=== PATIENT | female | born 1985 | race Caucasian/White ===

== ENCOUNTER 2016-08-06 12:40 | Emergency (ER) | payer OTHER ==
[2016-08-06 12:48] VITALS: BP 79/40; PULSE 102; TEMP 98.7; BMI 23.6
--- NOTE | 2016-08-06 14:15 | PDOC ---
History of Present Illness - General History Source: Patient Exam Limitations: No Limitations - History of Present Illness Initial Comments: 08/06/16 14:47 The patient is a 30 year old female with significant past medical history of diabetes who presents to the emergency department with a wound for the last 3 days. The patient states that the wound is on the posterior aspect of the left knee. She states within the last month she has significantly increased her exercise regimen and started running. She states that she had a sudden onset of left knee pain and swelling that was followed by blisters that drained clear fluid. The patient states that the pain and swelling is worse with standing and ambulation and she has little pain at rest. The patient states that her blood sugar level has been running high then normal for the last few days. She denies any associated symptoms. She denies any trauma or injury to the left knee. The patient denies recent illness, fevers, or chills. <Radha Flynn - Last Filed: 08/06/16 14:47> <Papito Francis - Last Filed: 08/06/16 16:43> - General Chief Complaint: Wound Stated Complaint: LT KNEE PAIN, FLUIDS (DIABETIC) Time Seen by Provider: 08/06/16 14:14 Past History <Radha Flynn - Last Filed: 08/06/16 14:47> - Past Medical History Anemia: Yes Asthma: No Cancer: No Cardiac Disorders: No CVA: No COPD: No CHF: No Dementia: No Diabetes: Yes (IDDM) GI Disorders: No Disorders: No HTN: No Hypercholesterolemia: No Liver Disease: No Psychiatric Problems: Yes (anxiety) Seizures: No Thyroid Disease: Yes - Surgical History Abdominal Surgery: No Appendectomy: No Cardiac Surgery: No Cholecystectomy: No Lung Surgery: No Neurologic Surgery: No Orthopedic Surgery: No - Immunization History Immunization Up to Date: Yes - Psycho/Social/Smoking Cessation Hx Anxiety: Yes Suicidal Ideation: No Smoking Status: No Smoking History: Never smoked Have you smoked in the past 12 months: No Number of Cigarettes Smoked Daily: 0 Information on smoking cessation initiated: No Hx Alcohol Use: No Drug/Substance Use Hx: No Substance Use Type: None Hx Substance Use Treatment: No <Papito Francis - Last Filed: 08/06/16 16:43> - Past Medical History Allergies/Adverse Reactions: Allergies Allergy/AdvReac Type Severity Reaction Status Date / Time No Known Allergies Allergy Verified 08/06/16 12:41 Home Medications: Ambulatory Orders Sulfamethoxazole/Trimethoprim [Bactrim Ds -] 1 tab PO BID #28 tablet 08/06/16 Review of Systems - Review of Systems Able to Perform ROS?: Yes Comments:: 08/06/16 14:47 GENERAL/CONSTITUTIONAL: No fever or chills. No weakness. HEAD, EYES, EARS, NOSE AND THROAT: No change in vision. No ear pain or discharge. No sore throat. CARDIOVASCULAR: No chest pain or shortness of breath. RESPIRATORY: No cough, wheezing, or hemoptysis. GASTROINTESTINAL: No nausea, vomiting, diarrhea or constipation. GENITOURINARY: No dysuria, frequency, or change in urination. MUSCULOSKELETAL: +Left knee pain. No joint or muscle swelling or pain. No neck or back pain. SKIN: No rash NEUROLOGIC: No headache, vertigo, loss of consciousness, or change in strength/ sensation. ENDOCRINE: No increased thirst. No abnormal weight change. HEMATOLOGIC/LYMPHATIC: No anemia, easy bleeding, or history of blood clots. ALLERGIC/IMMUNOLOGIC: No hives or skin allergy. <Radha Flynn - Last Filed: 08/06/16 14:47> *Physical Exam - Vital Signs Last Vital Signs Temp Pulse Resp BP Pulse Ox 98.7 F 102 H 20 79/40 97 08/06/16 12:42 08/06/16 12:42 08/06/16 12:42 08/06/16 12:42 08/06/16 12:42 - Physical Exam Comments: 08/06/16 14:48 GENERAL: Awake, alert, and fully oriented, in no acute distress HEAD: No signs of trauma EYES: PERRLA, EOMI, sclera anicteric, conjunctiva clear ENT: Auricles normal inspection, hearing grossly normal, nares patent, oropharynx clear without exudates. Moist mucosa NECK: Normal ROM, supple, no lymphadenopathy, JVD, or masses LUNGS: Breath sounds equal, clear to auscultation bilaterally. No wheezes, and no crackles HEART: Regular rate and rhythm, normal S1 and S2, no murmurs, rubs or gallops ABDOMEN: Soft, nontender, normoactive bowel sounds. No guarding, no rebound. No masses EXTREMITIES: +LEFT knee without effusion. Normal ROM. Remainder of extremities has normal range of motion, no edema. No clubbing or cyanosis. No cords, erythema, or tenderness NEUROLOGICAL: Cranial nerves II through XII grossly intact. Normal speech, normal gait SKIN: +LEFT posterior knee with an area of necrotic tissue surrounded by a cellulitis base. The area is linear, about 6m wide and 14mm long. Skin is warm, dry, normal turgor, no rashes noted. <Radha Flynn - Last Filed: 08/06/16 14:47> - Vital Signs Last Vital Signs Temp Pulse Resp BP Pulse Ox 98.7 F 102 H 20 79/40 97 08/06/16 12:42 08/06/16 12:42 08/06/16 12:42 08/06/16 12:42 08/06/16 12:42 <Papito Francis - Last Filed: 08/06/16 16:43> ED Treatment Course - LABORATORY CBC & Chemistry Diagram: 08/06/16 14:30 08/06/16 14:30 <GeeRadha - Last Filed: 08/06/16 14:47> - LABORATORY CBC & Chemistry Diagram: 08/06/16 14:30 08/06/16 14:30 <Papito Francis - Last Filed: 08/06/16 16:43> *DC/Admit/Observation/Transfer - Attestations Scribe Attestion: 08/06/16 14:48 Documentation prepared by Radha Flynn, acting as medical laboratory technicians for Papito Francis DO. <GeeRadha - Last Filed: 08/06/16 14:47> - Attestations Physician Attestion: 08/06/16 14:14 I, Dr. Papito Francis, attest that this document has been prepared under my direction and personally reviewed by me in its entirety. I further attest, that it accurately reflects all work, treatment, procedures and medical decision -making performed by me. <Papito Francis - Last Filed: 08/06/16 16:43> Diagnosis at time of Disposition: Wound infection - Discharge Dispostion Disposition: HOME Condition at time of disposition: Good - Prescriptions Prescriptions: Sulfamethoxazole/Trimethoprim [Bactrim Ds -] 1 tab PO BID #28 tablet - Patient Instructions Printed Discharge Instructions: DI for Cellulitis -- Adult, DI for Methicillin- Resistant Staph Infection (MRSA) Additional Instructions: Aminata Escobedo that you are having this problem right now. It may be that this is MRSA. We did get a wound culture so we will know in about 48 hours. The Bactrim DS is twice a day. Return to us if any problems. Follow up with your doctors in a day or two. Shmuel- Dr. Papito Francis
[2016-08-06 14:45] LABS: BASOPHIL 1.4 % (0-2.0); MCH 28.9 pg (25.7-33.7); MCHC 32.8 g/dl (32.0-36.0); MEAN CELL VOLUME 88.2 fl (80-96); MEAN PLT VOLUME 8.5 fl (7.5-11.1); NEUTROPHILS 58.5 % (42.8-82.8); PLATELET COUNT 345 K/MM3 (134-434); WHITE BLOOD COUNT 6.9 K/mm3 (4.0-10.0)
[2016-08-06 15:05] LABS: ALBUMIN 3.3 g/dl (3.4-5.0); ANION GAP 7 (8-16); C-REACTIVE PROTEIN 2.2 MG/DL (0.00-0.3); CALCIUM 9.1 mg/dL (8.5-10.1); CO2 33 mmol/L (21-32); GLUCOSE,RANDOM 224 mg/dL (74-106); SGPT/ALT 27 U/L (12-78)
[2016-08-06 15:07] LABS: ALK PHOS 93 U/L (45-117); BILIRUBIN,TOTAL 0.4 mg/dL (0.2-1.0)
[2016-08-06 15:09] LABS: SGOT/AST 17 U/L (15-37)
[2016-08-06] MEDS ORDERED: SULFAMETHOXAZOLE/TRIMETHOPRIM 800MG/160MG D.S. TABLET PO ONE (16:38)
[2016-08-06 16:50] LABS: ERYTHROCYTE SEDIMENTATION RATE 77 mm/hr (0-20)
== END 2016-08-06 16:57 | disposition home or self-care (01) ==
LOC: JER 12:40
DX: L03.115 Cellulitis of right lower limb (principal); E10.9 Type 1 diabetes mellitus without complications; Z79.4 Long term (current) use of insulin
CPT/HCPCS: 36415; 73562-TC-LT; 80053; 85025; 85651; 86140; 87070; 87186; 87205; 99282-25

== ENCOUNTER 2016-08-10 14:03 | Inpatient (IN) | payer OTHER ==
[2016-08-10 14:18] VITALS: BMI 23.6
--- NOTE | 2016-08-10 15:13 | PDOC ---
History of Present Illness - General Chief Complaint: Wound Infection Stated Complaint: Wound Infection Time Seen by Provider: 08/10/16 14:51 History Source: Patient Exam Limitations: No Limitations - History of Present Illness Initial Comments: 08/10/16 16:38 HPI: This 30 year old female who was seen several days ago for a wound that is behind her left knee. she states she fell days ago on her knee and the next day she developed "water blisters" behind her knee approx 1/2 in by 5 " long. She was discharged as it did not appear to need ABT at this time. She then went to her PMD , Dr. Galeano, who wanted her to come to ER for further evaluation as she felt it was necessary for IV ABT and ID consult. Pt did not have fevers, drainage, bleeding, or red streaking. There is some knee swelling and scabbed to the area. It was cultured 4 days ago resulting in E coli and strep group A with sensitivites. Pt is a IDDM brittle diabetic and wound is a concern. Chief Compliant: wound PMH: IDDM, hypothyroid, anxiety, anemia FH: Pt has not recently traveled outside the country in the last 30 days. Pt has not been in contact with people who have traveled out of the country, in contact with people who have been ill with fever, n, v, d. SH: smoking use: NONE illicit drug use: NONE alcohol use: NONE employment/educational status: PSH: Home med use noted on AUG Allergies: nka Immunizations: PCP: Dr. Galeano Past History - Past Medical History Allergies/Adverse Reactions: Allergies Allergy/AdvReac Type Severity Reaction Status Date / Time No Known Allergies Allergy Verified 08/10/16 14:18 Home Medications: Ambulatory Orders Sulfamethoxazole/Trimethoprim [Bactrim Ds -] 1 tab PO BID #28 tablet 08/06/16 Fludrocortisone Acetate 0.1 mg PO DAILY 08/10/16 Insulin Pump/Infus. Set/Meter [Accu-Chek Combo System] 1 each MC ASDIR 08/10/16 Levothyroxine [Synthroid -] 50 mcg PO DAILY 08/10/16 Losartan Potassium 0 mg PO HS 08/10/16 Anemia: Yes Asthma: No Cancer: No Cardiac Disorders: No CVA: No COPD: No CHF: No Dementia: No Diabetes: Yes (IDDM) GI Disorders: No Disorders: No HTN: No (LOW BLOOD PRESSURE) Hypercholesterolemia: No Liver Disease: No Psychiatric Problems: Yes (anxiety) Seizures: No Thyroid Disease: Yes Other medical history: LEGALLY BLIND - Surgical History Abdominal Surgery: No Appendectomy: No Cardiac Surgery: No Cholecystectomy: No Lung Surgery: No Neurologic Surgery: No Orthopedic Surgery: No - Immunization History Immunization Up to Date: Yes - Psycho/Social/Smoking Cessation Hx Anxiety: Yes Suicidal Ideation: No Smoking Status: No Smoking History: Never smoked Have you smoked in the past 12 months: No Number of Cigarettes Smoked Daily: 0 Hx Alcohol Use: No Drug/Substance Use Hx: No Substance Use Type: None Hx Substance Use Treatment: No Review of Systems - Review of Systems Able to Perform ROS?: Yes Comments:: 08/10/16 16:56 General statement: "I have a wound" Hematology: neg history of bleeding/blood thinners Skin: Neg for lesions, rash, bruising, left knee wound behind the knee. HEENT: Neg symptoms Respiratory: Neg SOB or difficulty in breathing Cardiac: Neg chest pain GI: Neg pain, n/v : Neg problems on voiding MS: Neg for joint pain/stiffness, no edema Neuro: Neg for LOC, weakness, Endocrine: Neg for excess thirst/hunger, cold/heat intolerance, excess sweating Allergies: Neg for allergies *Physical Exam - Vital Signs Last Vital Signs Temp Pulse Resp BP Pulse Ox 98.6 F 101 H 16 89/60 95 08/10/16 14:14 08/10/16 14:14 08/10/16 14:14 08/10/16 14:14 08/10/16 14:14 - Physical Exam Comments: 08/10/16 16:58 General Appearance: This well appearing 30 year old female V/S: hemodynamically stable, afebrile Skin: WNL of pt's skin color, no signs of pallor, mottling, cyanosis, noted a left knee behind with wound that is now healing and slight redness surrounding it without any drainage or erythema. Head:symmetrical Eyes: EOM's intact, PERRLA Ears: denies pain Nose: patent Throat: lips, teeth, gums, tongue, buccal mucos pink and moist Lungs: Chest symmetry equal. Cap refill <3 seconds. Lung sounds clear Cardiac: PMI at R 4MCL space, pos S1 and S2, regular rate. Abdomen: Soft, round, nontender : Not observed Muscularskeletal: Gait steady, ambulated in to ER, no edema +PMS Neuro: AAOx3, cognitively intact, speech clear and appropriate. ED Treatment Course - LABORATORY CBC & Chemistry Diagram: 08/10/16 15:35 08/10/16 15:35 Medical Decision Making - Medical Decision Making 08/10/16 16:59 A/P 30 year old female with diabetic wound to the left knee. 1. labs 2. blood culture 3. ua/ 4. wound culture noted from 08/06 5. knee xray noted from 08/06 6. spoke with who would like Dr. Lee for consult 7. Spoke with Dr. Lee who suggests per the wound culture to treat with Ancef 2 gm Q8 and he will follow. 8. 08/10/16 17:23 Admitting physician today is Dr. Gan who I have spoken with for admission *DC/Admit/Observation/Transfer Diagnosis at time of Disposition: Wound infection - Discharge Dispostion Condition at time of disposition: Stable Admit: Yes
[2016-08-10] MEDS: SODIUM CHLORIDE 1,000 ML IV SCH (15:53)
[2016-08-10 16:15] LABS: BASOPHIL 1.3 % (0-2.0); EOSINOPHIL 1.6 % (0-4.5); MCH 28.7 pg (25.7-33.7); MCHC 32.9 g/dl (32.0-36.0); MEAN CELL VOLUME 87.3 fl (80-96); MEAN PLT VOLUME 8.4 fl (7.5-11.1); NEUTROPHILS 49.8 % (42.8-82.8); PLATELET COUNT 413 K/MM3 (134-434); RDW 13.9 % (11.6-15.6)
[2016-08-10 16:28] LABS: URINE APPEARANCE CLOUDY; URINE BILIRUBIN NEGATIVE (NEGATIVE); URINE BLOOD NEGATIVE (NEGATIVE); URINE COLOR YELLOW; URINE GLUCOSE (UA) 3+ (NEGATIVE); URINE KETONE NEGATIVE (NEGATIVE); URINE NITRITE POSITIVE (NEGATIVE); URINE PROTEIN NEGATIVE (NEGATIVE); URINE UROBILINOGEN NEGATIVE E.U./dl (0.2-1.0)
[2016-08-10 16:29] LABS: INR 0.94 (0.82-1.09); PROTHROMBIN TIME (PATIENT) 10.3 SEC (9.98-11.88)
[2016-08-10 16:31] LABS: URINE LEUK ESTERASE 3+ (NEGATIVE)
[2016-08-10 16:38] LABS: ALBUMIN 3.5 g/dl (3.4-5.0); ANION GAP 5 (8-16); CALCIUM 8.6 mg/dL (8.5-10.1); CO2 32 mmol/L (21-32); GLUCOSE,RANDOM 226 mg/dL (74-106); SGOT/AST 32 U/L (15-37); SGPT/ALT 34 U/L (12-78)
[2016-08-10 16:40] LABS: ALK PHOS 134 U/L (45-117); BILIRUBIN,TOTAL 0.1 mg/dL (0.2-1.0); TOT PROT 7.1 g/dl (6.4-8.2)
[2016-08-10 16:51] LABS: URINE BACTERIA RARE /hpf (NONE SEEN); URINE RBC 4 /hpf (0-3); URINE WBC 25 /hpf (3-5); YEAST FEW
[2016-08-10] MEDS ORDERED: CEFAZOLIN (PRE-DOCKED) 100 ML IVPB ONE (18:20)
[2016-08-10] MEDS: ceFAZolin 2 GRAM PREMIX BAG IVPB SCH (18:27)
--- NOTE | 2016-08-10 21:18 | HP ---
Admitting History and Physical - Primary Care Physician PCP: Praful Dumont - Admission History of Present Illness: This 30 year old female who was seen several days ago for a wound that is behind her left knee. she states she fell days ago on her knee and the next day she developed "water blisters" behind her knee approx 1/2 in by 5 " long. She was discharged as it did not appear to need ABT at this time. She then went to her PMD , Dr. Galeano, who wanted her to come to HOSP FOR IV ABX. Pt did not have fevers, drainage, bleeding, or red streaking. There is some knee swelling and scabbed to the area. It was cultured 4 days ago resulting in E coli and strep group A with sensitivites. Pt is a IDDM brittle diabetic and wound is a concern. - Past Medical History Endocrine: Yes: Diabetes Mellitus, Hypothyroidism - Smoking History Smoking history: Never smoked Have you smoked in the past 12 months: No Aproximately how many cigarettes per day: 0 - Alcohol/Substance Use Hx Alcohol Use: No Home Medications - Allergies Allergies/Adverse Reactions: Allergies Allergy/AdvReac Type Severity Reaction Status Date / Time No Known Allergies Allergy Verified 08/10/16 14:18 - Home Medications Home Medications: Ambulatory Orders Fludrocortisone Acetate 0.1 mg PO DAILY 08/10/16 Insulin Pump/Infus. Set/Meter [Accu-Chek Combo System] 1 each MC ASDIR 08/10/16 Levothyroxine [Synthroid -] 50 mcg PO DAILY 08/10/16 Losartan Potassium 0 mg PO HS 08/10/16 Physical Examination Vital Signs: Vital Signs Temperature 97.9 F 08/10/16 18:40 Pulse Rate 98 H 08/10/16 18:40 Respiratory Rate 18 08/10/16 18:40 Blood Pressure 119/82 08/10/16 18:40 O2 Sat by Pulse Oximetry (%) 98 08/10/16 18:40 Constitutional: Yes: No Distress HENT: Yes: Atraumatic Neck: Yes: Supple Cardiovascular: Yes: Regular Rate and Rhythm Respiratory: Yes: CTA Bilaterally Gastrointestinal: Yes: Normal Bowel Sounds Extremities: Yes: Other (BEHIND THE THE KNEE REDNESS OF SKIN) Neurological: Yes: Alert, Oriented Problem List - Problems (1) Wound infection Code(s): T14.8 - OTHER INJURY OF UNSPECIFIED BODY REGION L08.9 - LOCAL INFECTION OF THE SKIN AND SUBCUTANEOUS TISSUE, UNSP (2) Knee injury Code(s): S89.90XA - UNSPECIFIED INJURY OF UNSPECIFIED LOWER LEG, INIT ENCNTR Assessment/Plan Laboratory Tests 08/10/16 08/10/16 08/10/16 15:35 15:35 15:35 WBC 6.0 RBC 3.22 L Hgb 9.2 L Hct 28.1 L MCV 87.3 MCHC 32.9 RDW 13.9 Plt Count 413 MPV 8.4 Neutrophils % 49.8 Lymphocytes % 40.7 H D Monocytes % 6.6 Eosinophils % 1.6 Basophils % 1.3 INR 0.94 Sodium Potassium Chloride Carbon Dioxide Anion Gap BUN Creatinine Creat Clearance w eGFR Random Glucose Lactic Acid Calcium Total Bilirubin AST ALT Alkaline Phosphatase Total Protein Albumin Serum , Qual Negative Urine Color Yellow Urine Appearance Cloudy Urine pH 7.0 Ur Specific Stanford 1.018 Urine Protein Negative Urine Glucose (UA) 3+ H Urine Ketones Negative Urine Blood Negative Urine Nitrite Positive Urine Bilirubin Negative Urine Urobilinogen Negative Ur Leukocyte Esterase 3+ H Urine RBC 4 Urine WBC 25 Ur Epithelial Cells Moderate Urine Bacteria Rare Urine Yeast Few 08/10/16 08/10/16 15:35 15:35 WBC RBC Hgb Hct MCV MCHC RDW Plt Count MPV Neutrophils % Lymphocytes % Monocytes % Eosinophils % Basophils % INR Sodium 139 Potassium 4.8 Chloride 102 Carbon Dioxide 32 Anion Gap 5 L BUN 22 H Creatinine 1.0 Creat Clearance w eGFR > 60 Random Glucose 226 H Lactic Acid 1.111 Calcium 8.6 Total Bilirubin 0.1 L D AST 32 D ALT 34 D Alkaline Phosphatase 134 H D Total Protein 7.1 Albumin 3.5 Serum , Qual Urine Color Urine Appearance Urine pH Ur Specific Stanford Urine Protein Urine Glucose (UA) Urine Ketones Urine Blood Urine Nitrite Urine Bilirubin Urine Urobilinogen Ur Leukocyte Esterase Urine RBC Urine WBC Ur Epithelial Cells Urine Bacteria Urine Yeast Active Medications Generic Name Dose Route Start Last Admin Trade Name Freq PRN Reason Stop Dose Admin Acetaminophen 650 mg 08/10/16 21:20 Tylenol - PO Q6H PRN FEVER OR PAIN Cefazolin Sodium/Dextrose 2 gm 08/10/16 18:00 08/11/16 18:26 Ancef 2 Gm Premixed Ivpb - IVPB 2 gm Q8H-IV JULIO CESAR Administration Fludrocortisone Acetate 0.1 mg 08/11/16 10:00 08/11/16 10:43 Florinef - PO Not Given DAILY JULIO CESAR Heparin Sodium (Porcine) 5,000 unit 08/10/16 22:00 08/11/16 10:42 Heparin - SQ Not Given BID JULIO CESAR Sodium Chloride 1,000 mls @ 125 mls/hr 08/10/16 15:15 08/11/16 18:26 Normal Saline - IV Not Given ASDIR JULIO CESAR Levothyroxine Sodium 50 mcg 08/11/16 07:00 08/11/16 06:25 Synthroid - PO 50 mcg DAILY@0700 JULIO CESAR Administration A/P 1.CELLULITIS KNEE ADMIT IV ABX PRN PAIN MEDS 2.DM ON INSULIN BGMS 3.HYPOTHYROID ON MEDS
[2016-08-10] MEDS ORDERED: ACETAMINOPHEN 325 MG TABLET (FP) PO PRN (21:20)
[2016-08-10] MEDS ORDERED: PATIENT'S OWN MEDICATION (NON-FORMULARY) (Insulin Pump/Infus. Set/Meter [Accu-Chek Combo S MC SCH (21:30)
[2016-08-10] MEDS ORDERED: HEPARIN NA (PORCINE) 5,000 UNITS/ML 1ML VIAL ONE (22:02)
[2016-08-10] MEDS: HEPARIN NA (PORCINE) 5,000 UNITS/ML 1ML VIAL SQ SCH (22:05)
[2016-08-11] MEDS: ceFAZolin 2 GRAM PREMIX BAG IVPB SCH ×3 (02:41→18:26)
[2016-08-11] MEDS: LEVOTHYROXINE NA 50 MCG TABLET (FP) PO SCH (06:25)
[2016-08-11 08:23] LABS: BASOPHIL 1.5 % (0-2.0); EOSINOPHIL 2.4 % (0-4.5); MCH 28.5 pg (25.7-33.7); MCHC 32.3 g/dl (32.0-36.0); MEAN CELL VOLUME 88.1 fl (80-96); MEAN PLT VOLUME 8.4 fl (7.5-11.1); NEUTROPHILS 44.7 % (42.8-82.8); PLATELET COUNT 370 K/MM3 (134-434); RDW 14.2 % (11.6-15.6); WHITE BLOOD COUNT 4.9 K/mm3 (4.0-10.0)
[2016-08-11 09:01] LABS: ANION GAP 6 (8-16); CO2 30 mmol/L (21-32); SGOT/AST 27 U/L (15-37); SGPT/ALT 27 U/L (12-78)
[2016-08-11 09:02] LABS: ALK PHOS 103 U/L (45-117); BILIRUBIN,TOTAL 0.3 mg/dL (0.2-1.0); CALCIUM 8.7 mg/dL (8.5-10.1); CREATININE 0.8 mg/dL (0.55-1.02); TOT PROT 6.2 g/dl (6.4-8.2)
[2016-08-11 09:23] LABS: GLUCOSE,RANDOM 318 mg/dL (74-106)
[2016-08-11] MEDS: HEPARIN NA (PORCINE) 5,000 UNITS/ML 1ML VIAL SQ SCH ×2 (10:42→21:30)
[2016-08-11] MEDS: FLUDROCORTISONE ACETATE 0.1 MG TABLET (FP) PO SCH (10:43)
--- NOTE | 2016-08-11 12:12 | PN ---
Progress Note (short form) - Note Progress Note: ID consult dictated imp/reccd 30 yo female with IDDM (basline hgbaic 11.4!) has been running on the treadmill last week morgan pullng in her left knee and developed swelling of the leg and blisters behind the knee she notes erythema and swellng as well she was seen in the ED leg xrayed discharged home no fevers seen by Dr Galeano yesterday who sent her to ED started on iv ancef last pm with improvement in the leg swelling duplex with left popliteal cyst no DVT infected wound IDDM wound culture group b strep/ecoli still some erythema of the wound starting to dry would continue ancef today suspect she can go home in am on Keflex diabetes management per PMD Problem List - Problems (1) Wound infection Code(s): T14.8 - OTHER INJURY OF UNSPECIFIED BODY REGION L08.9 - LOCAL INFECTION OF THE SKIN AND SUBCUTANEOUS TISSUE, UNSP (2) Diabetes Code(s): E11.9 - TYPE 2 DIABETES MELLITUS WITHOUT COMPLICATIONS Qualifiers: Diabetes mellitus type: type 1
--- NOTE | 2016-08-11 14:12 | CONS ---
DATE OF CONSULTATION: DATE OF DICTATION: 08/11/2016 REQUESTED BY: Dimitri Dumont MD This is a 30-year-old woman with a history of insulin-dependent diabetes since age 14, history of hypothyroidism as well. She has been trying to exercise more than usual and has started running on a treadmill. She had a sudden onset of left knee pain and swelling. She felt like a sudden discomfort in her left knee last . She noted she developed blisters in the back of her leg. Then she came to the emergency room with left leg swelling and blisters. She was evaluated and discharged home. There were no fevers or chills. The swelling worsened. She noted some erythema behind her leg but she has limited vision. She saw her heliarc welder yesterday, who advised ER admission. Her past medical history is notable for anemia, insulin-dependent diabetes. She has hypothyroidism and anxiety. Past surgical history is notable for a tonsillectomy. She has been diabetic since age 14. Family history is notable for adult-onset diabetes, not in anybody as a child. She has no known drug allergies. Her medications as an outpatient include levothyroxine, losartan, fludrocortisone, insulin. Her hemoglobin A1c she says usually runs 11.4. She is also legally blind and has an ocular implant in her left eye. SOCIAL HISTORY: She lives at home. There are no pets. She is not working. REVIEW OF SYSTEMS: She denies any scratches or blisters. She has had no fevers. She has no sore throat, cough, nausea, vomiting, diarrhea, or dysuria. PHYSICAL EXAMINATION: General: She is awake and alert, in no acute distress. Vital Signs: Her temperature is 98. Pulse 92. Blood pressure 109/77. Respiratory rate is 18. She is saturating 99% on room air. HEENT: She is normocephalic. Her eyes are anicteric. Neck: Supple. Lungs: Clear to auscultation. Heart: Regular rate and rhythm. Abdomen: Soft, nontender. Extremities: Left knee is slightly swollen compared to her right, and behind the knee she has 2 wounds behind the knee that are starting to scab over, with some surrounding erythema. White count of 4.9, hemoglobin 8.9, platelets 370, INR is 0.94. BUN 17 and creatinine 0.8. Glucose of 318. LFTs are normal. Urinalysis has 3+ leukocytes with 25 white cells. Cultures are pending. Wound culture done when she was evaluated on the in the ER revealed a group B streptococcus and E coli. She had an x- ray of her leg done on the that is notable for now significant factor or joint effusion and she had a duplex of her leg done today that shows a left popliteal cyst. In summary, this is a 30-year-old insulin-dependent diabetic with some cellulitis and swelling of her left leg, probably secondary to some left knee trauma from exercising. The wound culture has group B streptococcus and Escherichia coli. I would continue Ancef today as there is still some erythema of the wound, which is starting to dry. I suspect she can go home in the morning on Keflex. Diabetes management per primary medical doctor. JASMINA HOUSTON M.D. [id number] MTDD
[2016-08-11] MEDS: SODIUM CHLORIDE 1,000 ML IV SCH (18:26)
--- NOTE | 2016-08-11 19:13 | PN ---
Progress Note, Physician - Current Medication List Current Medications: Active Medications Acetaminophen (Tylenol -) 650 mg PO Q6H PRN PRN Reason: FEVER OR PAIN Cefazolin Sodium/Dextrose (Ancef 2 Gm Premixed Ivpb -) 2 gm IVPB Q8H-IV [facility] Last Admin: 08/11/16 18:26 Dose: 2 gm Fludrocortisone Acetate (Florinef -) 0.1 mg PO DAILY [facility] Last Admin: 08/11/16 10:43 Dose: Not Given Heparin Sodium (Porcine) (Heparin -) 5,000 unit SQ BID [facility] Last Admin: 08/11/16 10:42 Dose: Not Given Sodium Chloride (Normal Saline -) 1,000 mls @ 125 mls/hr IV ASDIR [facility] Last Admin: 08/11/16 18:26 Dose: Not Given Levothyroxine Sodium (Synthroid -) 50 mcg PO DAILY@0700 [facility] Last Admin: 08/11/16 06:25 Dose: 50 mcg - Objective Vital Signs: Vital Signs Temperature 97.9 F 08/11/16 13:54 Pulse Rate 98 H 08/11/16 13:54 Respiratory Rate 18 08/11/16 13:54 Blood Pressure 109/77 08/11/16 09:00 O2 Sat by Pulse Oximetry (%) 99 08/11/16 09:00 Constitutional: Yes: No Distress HENT: Yes: Atraumatic Neck: Yes: Supple Cardiovascular: Yes: Regular Rate and Rhythm Respiratory: Yes: CTA Bilaterally Gastrointestinal: Yes: Normal Bowel Sounds Extremities: Yes: Other (CELLULITIS) Neurological: Yes: Alert, Oriented Labs: CBC, BMP 08/11/16 07:00 08/11/16 07:00 INR, PTT INR 0.94 (0.82-1.09) 08/10/16 15:35 Problem List - Problems (1) Wound infection Code(s): T14.8 - OTHER INJURY OF UNSPECIFIED BODY REGION L08.9 - LOCAL INFECTION OF THE SKIN AND SUBCUTANEOUS TISSUE, UNSP (2) Knee injury Code(s): S89.90XA - UNSPECIFIED INJURY OF UNSPECIFIED LOWER LEG, INIT ENCNTR Assessment/Plan A/P 1.CELLULITIS KNEE ADMIT IV ABX...need to know from id if we can switch to oral PRN PAIN MEDS 2.DM ON INSULIN BGMS 3.HYPOTHYROID ON MEDS
[2016-08-12] MEDS: ceFAZolin 2 GRAM PREMIX BAG IVPB SCH ×2 (02:09→12:04)
[2016-08-12] MEDS: LEVOTHYROXINE NA 50 MCG TABLET (FP) PO SCH (06:46)
[2016-08-12] MEDS: FLUDROCORTISONE ACETATE 0.1 MG TABLET (FP) PO SCH (09:39)
[2016-08-12] MEDS: HEPARIN NA (PORCINE) 5,000 UNITS/ML 1ML VIAL SQ SCH (09:40)
[2016-08-12] MEDS: SODIUM CHLORIDE 1,000 ML IV SCH (09:40)
[2016-08-12 10:29] LABS: MCH 28.9 pg (25.7-33.7); MCHC 32.8 g/dl (32.0-36.0); MEAN PLT VOLUME 8.1 fl (7.5-11.1); PLATELET COUNT 389 K/MM3 (134-434); RDW 14.4 % (11.6-15.6); WHITE BLOOD COUNT 5.9 K/mm3 (4.0-10.0)
[2016-08-12 10:35] VITALS: BP 114/80; PULSE 96
[2016-08-12 11:38] LABS: ALBUMIN 3.2 g/dl (3.4-5.0); ALK PHOS 101 U/L (45-117); ANION GAP 7 (8-16); BILIRUBIN,TOTAL 0.2 mg/dL (0.2-1.0); CALCIUM 8.5 mg/dL (8.5-10.1); CO2 28 mmol/L (21-32); CREATININE 0.9 mg/dL (0.55-1.02); SGOT/AST 39 U/L (15-37); SGPT/ALT 25 U/L (12-78); TOT PROT 6.7 g/dl (6.4-8.2)
[2016-08-12 11:52] LABS: GLUCOSE,RANDOM 322 mg/dL (74-106)
--- NOTE | 2016-08-12 14:08 | PN ---
Progress Note (short form) - Note Progress Note: feels better less kneww swelling ulcers have scabbed over CBC, BMP 08/12/16 10:10 08/12/16 10:10 Microbiology 08/10/16 15:15 Wound Gram Stain - Final 08/10/16 15:15 Wound Wound Culture - Preliminary Strep Agalactiae Group B 08/10/16 15:15 Blood - Peripheral Venous Blood Culture - Preliminary NO GROWTH OBTAINED AFTER 24 HOURS, INCUBATION TO CONTINUE FOR 4 DAYS. 08/10/16 15:35 Blood - Peripheral Venous Blood Culture - Preliminary NO GROWTH OBTAINED AFTER 24 HOURS, INCUBATION TO CONTINUE FOR 4 DAYS. a/p infected wound can switch to po keflex 500 tid for one week bacitracin to wound iddm please call back if needed Problem List - Problems (1) Wound infection Code(s): T14.8 - OTHER INJURY OF UNSPECIFIED BODY REGION L08.9 - LOCAL INFECTION OF THE SKIN AND SUBCUTANEOUS TISSUE, UNSP (2) Diabetes Code(s): E11.9 - TYPE 2 DIABETES MELLITUS WITHOUT COMPLICATIONS
[2016-08-12 14:24] VITALS: TEMP 97.9
--- NOTE | 2016-08-12 16:41 | DS ---
Physical Examination Vital Signs: Vital Signs Temperature 97.9 F 08/12/16 14:00 Pulse Rate 96 H 08/12/16 14:00 Respiratory Rate 20 08/12/16 14:00 Blood Pressure 114/80 08/12/16 10:29 O2 Sat by Pulse Oximetry (%) 99 08/12/16 09:00 Constitutional: Yes: No Distress HENT: Yes: Atraumatic Neck: Yes: Supple Cardiovascular: Yes: Regular Rate and Rhythm Respiratory: Yes: CTA Bilaterally Gastrointestinal: Yes: Normal Bowel Sounds Extremities: Yes: Other (cellulitis improving behind left knee blisters have scabbed swelling down) Neurological: Yes: Alert, Oriented Labs: CBC, BMP 08/12/16 10:10 08/12/16 10:10 Discharge Summary Reason For Visit: Wound Infection Current Active Problems Diabetes (Acute) Wound infection (Acute) Condition: Stable - Instructions Referrals: Toshia Galeano MD [Primary Care Provider] - Praful Dumont MD [Staff Physician] - - Home Medications Comprehensive Discharge Medication List: Ambulatory Orders Fludrocortisone Acetate 0.1 mg PO DAILY 08/10/16 Insulin Pump/Infus. Set/Meter [Accu-Chek Combo System] 1 each [facility] ASDIR 08/10/16 Levothyroxine [Synthroid -] 50 mcg PO DAILY 08/10/16 Losartan Potassium 0 mg PO HS 08/10/16 Cephalexin [Keflex] 500 mg PO TID #21 capsule 08/12/16
== END 2016-08-12 17:30 | disposition home or self-care (01) | DRG 603 ==
LOC: JER 14:03 → JERBED 17:24 → J6S 08-11 01:12
PROVIDERS: ADMIT Internal Medicine; ATTEND Internal Medicine
DX: L03.116 Cellulitis of left lower limb (principal); L08.9 Local infection of the skin and subcutaneous tissue, unspecified; B95.1 Streptococcus, group B, as the cause of diseases classified elsewhere; E11.9 Type 2 diabetes mellitus without complications; Z79.4 Long term (current) use of insulin; E03.9 Hypothyroidism, unspecified; D64.9 Anemia, unspecified; F41.9 Anxiety disorder, unspecified; H54.8 Legal blindness, as defined in USA
CPT/HCPCS: 36415; 80053; 81003; 81015; 83605; 84703; 85025; 85027; 85610; 87040; 87070; 87186; 87205; 93970-TC; 99284-25

== ENCOUNTER 2018-06-18 09:07 | Emergency (ER) | payer OTHER ==
[2018-06-18 09:12] VITALS: BP 113/78; PULSE 98; TEMP 97.5; BMI 22.3
[2018-06-18] MEDS ORDERED: IBUPROFEN 400 MG TABLET (FP) PO ONE ×2 (09:43→10:03)
--- NOTE | 2018-06-18 09:52 | PDOC ---
History of Present Illness - General Chief Complaint: Injury Stated Complaint: PAIN,SOB Time Seen by Provider: 06/18/18 09:39 History Source: Patient - History of Present Illness Occurred: reports: other Severity: reports: severe Pain Location: reports: chest Method of Injury: Yes: direct blow Associated Symptoms (Fall): chest pain Past History - Past Medical History Allergies/Adverse Reactions: Allergies Allergy/AdvReac Type Severity Reaction Status Date / Time No Known Allergies Allergy Verified 06/18/18 09:13 Home Medications: Ambulatory Orders Fludrocortisone Acetate 0.1 mg PO DAILY 08/10/16 Insulin Pump/Infus. Set/Meter [Accu-Chek Combo System] 1 each MC ASDIR 08/10/16 Levothyroxine [Synthroid -] 50 mcg PO DAILY 08/10/16 Losartan Potassium 0 mg PO HS 08/10/16 Cephalexin [Keflex] 500 mg PO TID #21 capsule 08/12/16 Anemia: Yes Asthma: No Cancer: No Cardiac Disorders: No CVA: No COPD: No CHF: No Dementia: No Diabetes: Yes (IDDM) GI Disorders: No Disorders: No HTN: No (LOW BLOOD PRESSURE) Hypercholesterolemia: No Liver Disease: No Psychiatric Problems: Yes (anxiety) Seizures: No Thyroid Disease: Yes - Surgical History Abdominal Surgery: No Appendectomy: No Cardiac Surgery: No Cholecystectomy: No Lung Surgery: No Neurologic Surgery: No Orthopedic Surgery: No - Immunization History Immunization Up to Date: Yes - Suicide/Smoking/Psychosocial Hx Smoking Status: No Smoking History: Never smoked Have you smoked in the past 12 months: No Number of Cigarettes Smoked Daily: 0 Hx Alcohol Use: No Drug/Substance Use Hx: No Substance Use Type: None Hx Substance Use Treatment: No Review of Systems - Review of Systems Respiratory: No: Shortness of Breath Cardiac (ROS): Yes: Chest Pain *Physical Exam - Vital Signs Last Vital Signs Temp Pulse Resp BP Pulse Ox 97.5 F L 98 H 18 113/78 100 06/18/18 09:09 06/18/18 09:09 06/18/18 09:09 06/18/18 09:09 06/18/18 09:09 - Physical Exam General Appearance: Yes: Appropriately Dressed. No: Apparent Distress HEENT: positive: Normal Voice Neck: positive: Supple Respiratory/Chest: positive: Chest Tender (to R upper chest in MCL w/ ? step off over R 3rd rib, no crepitus), Lungs Clear, Normal Breath Sounds. negative: Respiratory Distress Cardiovascular: positive: Regular Rate, S1, S2 Integumentary: positive: Dry, Warm Neurologic: positive: Fully Oriented, Alert, Normal Mood/Affect Moderate Sedation - Procedure Monitoring Vital Signs: Procedure Monitoring Vital Signs Temperature 97.5 F L 06/18/18 09:09 Pulse Rate 98 H 06/18/18 09:09 Respiratory Rate 18 06/18/18 09:09 Blood Pressure 113/78 06/18/18 09:09 O2 Sat by Pulse Oximetry (%) 100 06/18/18 09:09 ED Treatment Course - RADIOLOGY Radiology Studies Ordered: Category Date Time Status RIBS BILATERAL [RAD] Stat Radiology 06/18/18 09:43 Ordered Medical Decision Making - Medical Decision Making 06/18/18 09:52 32 yo F, no sig hx, here w/ pain to R upper chest s/p injury. Pt states several nights ago while walking her dog, she got caught between 2 cars trying to restrain dog who was attempting to break from leash. Pt states she accidentally banged R chest against one of the parked cars repeatedly. Continues o have pain , worse with deep inspiration/ Taking alleve w/ some relive See exam Chest contusion, r/p kailey fx given ? step off on exam -pain control -XR 06/18/18 11:14 Rib series s and chest x-ray read as negative. Will DC to take over-the- counter medication as needed until pain resolves *DC/Admit/Observation/Transfer Diagnosis at time of Disposition: Chest wall contusion Qualifiers: Encounter type: initial encounter Laterality: right Qualified Code(s): S20.211A - Contusion of right front wall of thorax, initial encounter - Discharge Dispostion Disposition: HOME Condition at time of disposition: Good - Referrals Referrals: Toshia Galeano MD [Primary Care Provider] - - Patient Instructions Printed Discharge Instructions: Contusion Additional Instructions: The rib series and chest x-ray were negative for fracture or any other concerning findings. You most likely suffered a chest wall contusion which will heal in time. You can take Motrin or Tylenol as needed until pain resolves - Post Discharge Activity
== END 2018-06-18 11:23 | disposition home or self-care (01) ==
LOC: JERFT 09:07
DX: S20.211A Contusion of right front wall of thorax, initial encounter (principal); W22.8XXA Striking against or struck by other objects, initial encounter; Y93.K1 Activity, walking an animal; Y92.480 Sidewalk as the place of occurrence of the external cause; Y99.8 Other external cause status; I10 Essential (primary) hypertension; Z79.4 Long term (current) use of insulin; I95.9 Hypotension, unspecified; E07.9 Disorder of thyroid, unspecified
CPT/HCPCS: 71046-TC-FY; 71111-TC-FY; 84703; 99281-25

== ENCOUNTER 2018-11-29 15:24 | Emergency (ER) | payer OTHER ==
[2018-11-29 15:30] VITALS: TEMP 97.7; BMI 22.4
[2018-11-29] MEDS ORDERED: SODIUM CHLORIDE 1,000 ML IV STA (15:30)
--- NOTE | 2018-11-29 15:30 | PDOC ---
Rapid Medical Evaluation Time Seen by Provider: 11/29/18 15:25 Medical Evaluation: Allergies Allergy/AdvReac Type Severity Reaction Status Date / Time No Known Allergies Allergy Verified 06/18/18 09:13 11/29/18 15:25 I have performed a brief in-person evaluation of this patient. The patient presents with a chief complaint of: diarrhea x9 days- GI [place] on vacation Pertinent physical exam findings: BP-92/63. AF. Abd SNTND. I have ordered the following: urine, labs, IVF, EKG The patient will proceed to the ED for further evaluation. 11/29/18 15:29 Discharge Disposition - Diagnosis Diarrhea - Referrals - Patient Instructions - Post Discharge Activity
--- NOTE | 2018-11-29 15:44 | PDOC ---
History of Present Illness - General Chief Complaint: Pain, Acute Stated Complaint: IBS/ STOMACH VIRUS Time Seen by Provider: 11/29/18 15:25 History Source: Patient - History of Present Illness Timing/Duration: reports: intermittent Quality: reports: moderate Past History - Past Medical History Allergies/Adverse Reactions: Allergies Allergy/AdvReac Type Severity Reaction Status Date / Time No Known Allergies Allergy Verified 06/18/18 09:13 Home Medications: Ambulatory Orders Fludrocortisone Acetate 0.1 mg PO DAILY 08/10/16 Insulin Pump/Infus. Set/Meter [Accu-Chek Combo System] 1 each MC ASDIR 08/10/16 Levothyroxine [Synthroid -] 50 mcg PO DAILY 08/10/16 Losartan Potassium 0 mg PO HS 08/10/16 Cephalexin [Keflex] 500 mg PO TID #21 capsule 08/12/16 Rifaximin [Xifaxan] 550 mg PO TID 11/29/18 Rifaximin [Xifaxan] 550 mg PO TID #41 tablet 11/29/18 Anemia: Yes Asthma: No Cancer: No Cardiac Disorders: No CVA: No COPD: No CHF: No Dementia: No Diabetes: Yes (IDDM) GI Disorders: No Disorders: No HTN: No (LOW BLOOD PRESSURE) Hypercholesterolemia: No Liver Disease: No Psychiatric Problems: Yes (anxiety) Seizures: No Thyroid Disease: Yes - Surgical History Abdominal Surgery: No Appendectomy: No Cardiac Surgery: No Cholecystectomy: No Lung Surgery: No Neurologic Surgery: No Orthopedic Surgery: No - Immunization History Immunization Up to Date: Yes - Suicide/Smoking/Psychosocial Hx Smoking Status: No Smoking History: Never smoked Have you smoked in the past 12 months: No Number of Cigarettes Smoked Daily: 0 Information on smoking cessation initiated: No Hx Alcohol Use: No Drug/Substance Use Hx: No Substance Use Type: None Hx Substance Use Treatment: No Review of Systems - Review of Systems Constitutional: No: Chills, Fever ABD/GI: Yes: Diarrhea. No: Blood Streaked Bowels, Nausea, Rectal Bleeding, Vomiting, Abdominal cramping, Tarry Stools *Physical Exam - Vital Signs Last Vital Signs Temp Pulse Resp BP Pulse Ox 97.7 F 97 H 18 92/63 100 11/29/18 15:27 11/29/18 15:27 11/29/18 15:27 11/29/18 15:27 11/29/18 15:27 - Physical Exam General Appearance: Yes: Appropriately Dressed. No: Apparent Distress HEENT: positive: Normal Voice Neck: positive: Supple Respiratory/Chest: negative: Respiratory Distress Gastrointestinal/Abdominal: positive: Normal Bowel Sounds, Soft. negative: Tender, Distended, Guarding, Rebound Integumentary: positive: Dry, Warm Neurologic: positive: Fully Oriented, Alert, Normal Mood/Affect ED Treatment Course - LABORATORY CBC & Chemistry Diagram: 11/29/18 15:38 11/29/18 15:38 Medical Decision Making - Medical Decision Making 11/29/18 15:39 33 yo F, h/o IDDM, hypotension (w/ intermittent dizziness upon exertion per pt- unclear cause), IBS c/w diarrhea/abd pain and bloating per pt, f/u with Dr Mai of GI w/ flares usually treated with 2 week course of Xifaxan vc cipro/ flagyl per patient, here with intermittent non-bloody watery stools 10 days. Only has abdominal pain with bloating after she eats. Denies any n/v, fever or chills. 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 Mai currently on vacation, so decided to come to the ED this time. Pt states she has h/o low BP that sometimes cause dizziness, otherwise no acute dizziness/weakness at this time See exam IBS flare vs VGE, less likely DKA Hypotensive here (endorses h/o low BP) -IVF -zofran -pain free at this time -labs -consider dc w/ xifaxin upon dc w/ f/u with GI 11/29/18 18:20 LFTs elevated today. 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 S/p liver bx earlier this year but not certain of results. Hep panel neg in 2010. Pt denies excessive tylenol use and denies ETOH use. BS in the 300s prior to IVF, no gap. Will rpt FS and vitals. Anticipate dc 11/29/18 18:39 BP improved on rpt vitals. FS 139 . Reports feeling a lot better at this time and feels well enough to be discharged. Prescription for Xifaxan sent to pharmacy. Patient to follow-up with Dr. Acevedo this week. Reasons to return to ER. Discussed with patient *DC/Admit/Observation/Transfer Diagnosis at time of Disposition: Transaminitis, Hyperglycemia Diarrhea Qualifiers: Diarrhea type: unspecified type Qualified Code(s): R19.7 - Diarrhea, unspecified - Discharge Dispostion Disposition: HOME Condition at time of disposition: Stable - Prescriptions Prescriptions: Rifaximin [Xifaxan] 550 mg PO TID #41 tablet - Referrals Referrals: Tl Walker MD [Primary Care Provider] - - Patient Instructions Additional Instructions: Your liver tests were elevated here. Please continue to up with your doctors for further evaluation Sugar here was in the 300s that improved to a little bit over 100 with IVF Please follow-up with your conveyor belt operator for better glucose control Take the rifaximin as prescribed for your IBS and follow up with Dr. Mai this week. Return to ER if symptoms worsen - Post Discharge Activity
[2018-11-29] MEDS ORDERED: RIFAXIMIN 550 MG TABLET (UD) PO ONE (15:46)
[2018-11-29] MEDS ORDERED: ONDANSETRON 4 MG TABLET PO ONE (15:46)
[2018-11-29] MEDS ORDERED: ONDANSETRON 4 MG/2 ML VIAL IVPUSH ONE (15:56)
[2018-11-29] MEDS ORDERED: ONDANSETRON 4 MG/2 ML VIAL ONE (15:57)
[2018-11-29 16:26] LABS: BASO % 1.3 % (0-2.0); EOS % 1.2 % (0-4.5); HEMATOCRIT 30.8 % (32.4-45.2); HEMOGLOBIN 10.1 GM/dL (10.7-15.3); LYMPH % 29.4 % (8-40); MCH 29.1 pg (25.7-33.7); MCHC 32.7 g/dl (32.0-36.0); MEAN CELL VOLUME 88.8 fl (80-96); MONO % 5.6 % (3.8-10.2); NEUT % 62.5 % (42.8-82.8); PLATELET COUNT 281 K/MM3 (134-434); RBC 3.47 M/mm3 (3.60-5.2); RDW 14.5 % (11.6-15.6); WHITE BLOOD COUNT 6.5 K/mm3 (4.0-10.0)
[2018-11-29 18:03] LABS: ALBUMIN 3.5 g/dl (3.4-5.0); ALK PHOS 209 U/L (45-117); ANION GAP 6 MMOL/L (8-16); BILIRUBIN,TOTAL 0.3 mg/dL (0.2-1); BLOOD UREA NITROGEN 27.2 mg/dL (7-18); CALCIUM 9.6 mg/dL (8.5-10.1); CHLORIDE 97 mmol/L (98-107); CO2 31 mmol/L (21-32); LIPASE 202 U/L (73-393); POTASSIUM 4.4 mmol/L (3.5-5.1); SGOT/AST 453 U/L (15-37); SGPT/ALT 353 U/L (13-61); SODIUM 133 mmol/L (136-145); TOT PROT 7.1 g/dl (6.4-8.2)
[2018-11-29 18:07] LABS: GLUCOSE,RANDOM 344 mg/dL (74-106)
[2018-11-29 18:16] LABS: PH,URINE 5.5 (5.0-8.0); URINE APPEARANCE CLEAR; URINE BILIRUBIN NEGATIVE (NEGATIVE); URINE COLOR DK YELLOW; URINE GLUCOSE (UA) 3+ (NEGATIVE); URINE KETONE NEGATIVE (NEGATIVE); URINE LEUK ESTERASE NEGATIVE (NEGATIVE); URINE NITRITE NEGATIVE (NEGATIVE); URINE PROTEIN TRACE (NEGATIVE); URINE UROBILINOGEN 0.2 mg/dL (0.2-1.0)
[2018-11-29 18:31] VITALS: BP 103/72; PULSE 91
== END 2018-11-29 18:48 | disposition home or self-care (01) ==
LOC: JER 15:24
PROC: 3E0337Z Introduction of Electrolytic and Water Balance Substance into Peripheral Vein, Percutaneous Approach (ICD-10-PCS; principal; 2018-11-29)
PROC: 3E033GC Introduction of Other Therapeutic Substance into Peripheral Vein, Percutaneous Approach (ICD-10-PCS; 2018-11-29)
DX: K58.0 Irritable bowel syndrome with diarrhea (principal); E10.65 Type 1 diabetes mellitus with hyperglycemia; Z79.4 Long term (current) use of insulin; R94.5 Abnormal results of liver function studies; R74.0 Nonspecific elevation of levels of transaminase and lactic acid dehydrogenase [LDH]
CPT/HCPCS: 36415; 80053; 81003; 82962; 83690; 84703; 85025; 86140; 87086; 87186; 96361; 96374; 99283-25; J7030

== ENCOUNTER 2018-12-11 22:18 | Inpatient (IN) | payer OTHER | END 2018-12-13 15:50 | disposition home or self-care (01) | LOC: JER 22:18 → JERBED 12-12 02:30 → J5S 12-12 05:52 ==

== ENCOUNTER 2019-01-21 17:24 | Inpatient (IN) | payer OTHER ==
--- NOTE | 2019-01-21 17:48 | PDOC ---
History of Present Illness - General Chief Complaint: Blood Sugar Problem Stated Complaint: BLOOD SUGAR PROBLEM History Source: Patient Exam Limitations: No Limitations - History of Present Illness Initial Comments: 01/21/19 17:59 33 yo F with a hx of DKA (1x in the past year), T1DM (since 15 years of age) and IBS presents to the emergency department with AMS and BGM >600. Per the patient, she believes her insulin pump is no longer functioning and has had this occur in the past before. Yesterday, she noticed her BGM >600. She gave herself 7.8 units of insulin 4 hours ago with a BGM >600. She states she became confused later today. Denies the following: fever, vomiting, chest pain, SOB, abdominal pain, hematuria, diarrhea, and hematochezia. Endorses nausea and polyuria. Endorses burning sensation in urine over the course of the week. AllergieS: NKDA Meds: insulin pump, fludrocortisone Social: Denies drug abuse, alcohol, and tobacco. Past History - Past Medical History Allergies/Adverse Reactions: Allergies Allergy/AdvReac Type Severity Reaction Status Date / Time No Known Allergies Allergy Verified 12/11/18 22:26 Home Medications: Ambulatory Orders Fludrocortisone Acetate 0.1 mg PO DAILY 08/10/16 Insulin Pump/Infus. Set/Meter [Accu-Chek Combo System] 1 each MC ASDIR 08/10/16 Anemia: Yes Asthma: No Cancer: No Cardiac Disorders: No CVA: No COPD: No CHF: No Dementia: No Diabetes: Yes (IDDM) GI Disorders: No Disorders: No HTN: No (LOW BLOOD PRESSURE) Hypercholesterolemia: No Liver Disease: No Psychiatric Problems: Yes (anxiety) Seizures: No Thyroid Disease: Yes - Surgical History Abdominal Surgery: No Appendectomy: No Cardiac Surgery: No Cholecystectomy: No Lung Surgery: No Neurologic Surgery: No Orthopedic Surgery: No - Immunization History Immunization Up to Date: Yes - Suicide/Smoking/Psychosocial Hx Smoking Status: No Smoking History: Unknown if ever smoked Have you smoked in the past 12 months: No Number of Cigarettes Smoked Daily: 0 Information on smoking cessation initiated: No Hx Alcohol Use: No Drug/Substance Use Hx: No Substance Use Type: None Hx Substance Use Treatment: No Review of Systems - Review of Systems Able to Perform ROS?: Yes Is the patient limited Syrian proficient: No Constitutional: Yes: Chills, Weakness. No: Diaphoresis, Fever HEENTM: Yes: Cataracts. No: Eye Pain, Ear Pain, Nose Pain, Throat Pain, Mouth Pain Respiratory: No: Cough, Shortness of Breath, SOB with Exertion, Hemoptysis Cardiac (ROS): No: Chest Pain, Lightheadedness, Palpitations, Syncope, Chest Tightness ABD/GI: Yes: Nausea. No: Constipated, Diarrhea, Poor Appetite, Poor Fluid Intake, Rectal Bleeding, Vomiting, Tarry Stools : Yes: Burning, Frequency. No: Dysuria, Incontinence, Pain Musculoskeletal: No: Back Pain, Joint Pain Integumentary: No: Bruising, Flushing, Lesions Neurological: No: Headache, Numbness, Tingling, Tremors Psychiatric: No: Stressors, Change in Appetite Endocrine: No: Unexplained Weight Loss Hematologic/Lymphatic: No: Anemia *Physical Exam - Vital Signs Last Vital Signs Temp Pulse Resp BP Pulse Ox 98.7 F 63 16 114/63 100 01/21/19 17:25 01/21/19 17:25 01/21/19 17:25 01/21/19 17:25 01/21/19 17:25 - Physical Exam General Appearance: Yes: Nourished, Appropriately Dressed. No: Apparent Distress, Alcohol on Breath, Obese HEENT: positive: EOMI, LORENA, Normal Voice, Pharynx Normal, Hearing Grossly Normal. negative: Pale Conjunctivae, Scleral Icterus (R), Scleral Icterus (L), Muffled/Hoarse voice, Pharyngeal Erythema, Tonsillar Exudate, Tonsillar Erythema , Nasal Congestion, Excessive drooling Neck: positive: Trachea midline, Supple. negative: Tender, Lymphadenopathy (R) , Lymphadenopathy (L), Tender lateral, Tender midline Respiratory/Chest: positive: Lungs Clear, Normal Breath Sounds. negative: Chest Tender, Respiratory Distress, Accessory Muscle Use, Crackles, Rales, Rhonchi, Stridor, Wheezing, Hyperresonant Cardiovascular: positive: Regular Rhythm, Regular Rate, S1, S2. negative: Systolic Murmur Gastrointestinal/Abdominal: positive: Normal Bowel Sounds, Flat, Soft. negative : Tender Musculoskeletal: positive: Normal Inspection Extremity: positive: Normal Range of Motion, Other (coolness to the extremities) . negative: Normal Capillary Refill (delayed), Normal Inspection (scars lesions bilaterally LE), Tender Integumentary: positive: Dry, Pale, Cold. negative: Normal Color Neurologic: positive: Depressed Affect. negative: Fully Oriented (oriented to self only), Normal Mood/Affect (confused), Facial Droop, Numbness Procedures - Central Line Central Line Lumen: triple Central Line Position: femoral (R) Anesthesia: 1% Lidocaine Amount of anesthesia (ccs): 1 Complications: none Post Central Line Insertion: sutured, good blood return ED Treatment Course - LABORATORY CBC & Chemistry Diagram: 01/23/19 05:40 01/23/19 05:40 - ADDITIONAL ORDERS Additional order review: Laboratory Results 01/21/19 17:28 POC Glucometer > 600 01/21/19 17:28 POC Glucometer > 600 Medical Decision Making - Medical Decision Making 01/21/19 18:31 33 yo F with a hx of DKA (1x in the past year), T1DM (since 15 years of age) and IBS presents to the emergency department with AMS and BGM >600. Initial vitals: Initial Vital Signs Temp Pulse Resp BP Pulse Ox 98.7 F 63 16 114/63 100 01/21/19 17:25 01/21/19 17:25 01/21/19 17:25 01/21/19 17:25 01/21/19 17:25 Work up: ddx: patient presents to the emergency department with profound hypotension ( MAP in the 40s-50s initially) with known history of T1DM that states her insulin broke. Given her tachypnea and EMS reports of field BGM >600, suspect DKA in setting of AMS. Differential will remain broad as I suspect there is a concurrent disturbance in addition to the suspected DKA. Will order blood cultures (given hypothermia), cbc, cmp, trops, ekg, cxr, ua, urine culture, urine, tsh, free T4, magnesium, alcohol, vbg, salicylate, and acetaminophen. Interventions: 2x 20 gauge IVs (unable to get 18s in), 2 liters of NS initially. EKG: st depression noted in V4-V6. QT prolongation. Sinus rhythm. Laboratory Tests 01/21/19 01/21/19 01/21/19 17:28 17:34 17:50 WBC RBC Hgb Hct MCV MCH MCHC RDW Plt Count MPV Absolute Neuts (auto) Total Counted Neutrophils % Neutrophils % (Manual) Band Neutrophils % Lymphocytes % Lymphocytes % (Manual) Monocytes % (Manual) Basophils % (Manual) Myelocytes % (Man) Nucleated RBC % Differential Comment Hypochromia Platelet Estimate Platelet Comment Polychromasia Macrocytosis PT with INR INR VBG pH POC VBG pCO2 POC VBG pO2 VBG HCO3 VBG O2 Sat (Billie) VBG Base Excess Sodium Potassium Chloride Carbon Dioxide Anion Gap BUN Creatinine Est GFR (CKD-EPI)AfAm Est GFR (CKD-EPI)NonAf POC Glucometer > 600 Random Glucose Lactic Acid Calcium Magnesium Total Bilirubin AST ALT Alkaline Phosphatase Creatine Kinase Troponin I Total Protein Albumin TSH Free T4 Serum , Qual Negative Urine Color Urine Appearance Urine pH Ur Specific Fl[place] Urine Protein Urine Glucose (UA) Urine Ketones Urine Blood Urine Nitrite Urine Bilirubin Urine Urobilinogen Ur Leukocyte Esterase Urine WBC (Auto) Urine RBC (Auto) Urine Casts (Auto) U Epithel Cells (Auto) Urine Bacteria (Auto) Salicylates Opiates Screen Methadone Screen Acetaminophen Barbiturate Screen Phencyclidine Screen Ur Amphetamines Screen MDMA (Ecstasy) Screen Benzodiazepines Screen Cocaine Screen U Marijuana (THC) Screen Alcohol, Quantitative < 3.0 Acetone, Qual 01/21/19 01/21/19 01/21/19 18:00 18:00 18:00 WBC 10.6 H RBC 2.56 L Hgb 7.6 L Hct 27.1 L MCV 106.1 H D MCH 29.9 MCHC 28.2 L RDW 14.6 Plt Count 249 MPV 10.4 D Absolute Neuts (auto) 8.5 H Total Counted 100 Neutrophils % No Result Required. Neutrophils % (Manual) 71.0 Band Neutrophils % 5.0 Lymphocytes % No Result Required. Lymphocytes % (Manual) 17.0 Monocytes % (Manual) 5 Basophils % (Manual) 1.0 Myelocytes % (Man) 1 Nucleated RBC % 0 Differential Comment Man diff performed Hypochromia 1+ Platelet Estimate Adequate Platelet Comment Polychromasia 1+ Macrocytosis 2+ PT with INR INR VBG pH POC VBG pCO2 POC VBG pO2 VBG HCO3 VBG O2 Sat (Billie) VBG Base Excess Sodium 116 L* Potassium 7.1 H* Chloride 83 L Carbon Dioxide 6 L Anion Gap 27 H BUN 65.6 H Creatinine 2.6 H Est GFR (CKD-EPI)AfAm 27.00 Est GFR (CKD-EPI)NonAf 23.30 POC Glucometer Random Glucose 1380 H* Lactic Acid 3.1 H* Calcium 7.5 L Magnesium 2.5 H Total Bilirubin 1.0 AST 86 H ALT 60 Alkaline Phosphatase 176 H Creatine Kinase 120 Troponin I 0.18 H Total Protein 5.2 L Albumin 2.7 L TSH 4.94 H Free T4 0.79 Serum , Qual Urine Color Urine Appearance Urine pH Ur Specific Fl[place] Urine Protein Urine Glucose (UA) Urine Ketones Urine Blood Urine Nitrite Urine Bilirubin Urine Urobilinogen Ur Leukocyte Esterase Urine WBC (Auto) Urine RBC (Auto) Urine Casts (Auto) U Epithel Cells (Auto) Urine Bacteria (Auto) Salicylates 5.1 Opiates Screen Methadone Screen Acetaminophen 14.6 Barbiturate Screen Phencyclidine Screen Ur Amphetamines Screen MDMA (Ecstasy) Screen Benzodiazepines Screen Cocaine Screen U Marijuana (THC) Screen Alcohol, Quantitative Acetone, Qual Positive large 3+ H 01/21/19 01/21/19 01/21/19 18:00 18:20 19:00 WBC RBC Hgb Hct MCV MCH MCHC RDW Plt Count MPV Absolute Neuts (auto) Total Counted Neutrophils % Neutrophils % (Manual) Band Neutrophils % Lymphocytes % Lymphocytes % (Manual) Monocytes % (Manual) Basophils % (Manual) Myelocytes % (Man) Nucleated RBC % Differential Comment Hypochromia Platelet Estimate Platelet Comment Polychromasia Macrocytosis PT with INR 10.40 INR 0.88 VBG pH 6.93 L* POC VBG pCO2 18.7 L POC VBG pO2 87.4 H VBG HCO3 3.7 L VBG O2 Sat (Billie) 90.7 H VBG Base Excess -26.7 L Sodium Potassium Chloride Carbon Dioxide Anion Gap BUN Creatinine Est GFR (CKD-EPI)AfAm Est GFR (CKD-EPI)NonAf POC Glucometer Random Glucose Lactic Acid Calcium Magnesium Total Bilirubin AST ALT Alkaline Phosphatase Creatine Kinase Troponin I Total Protein Albumin TSH Free T4 Serum , Qual Urine Color Urine Appearance Urine pH Ur Specific [place] Urine Protein Urine Glucose (UA) Urine Ketones Urine Blood Urine Nitrite Urine Bilirubin Urine Urobilinogen Ur Leukocyte Esterase Urine WBC (Auto) Urine RBC (Auto) Urine Casts (Auto) U Epithel Cells (Auto) Urine Bacteria (Auto) Salicylates Opiates Screen Negative Methadone Screen Negative Acetaminophen Barbiturate Screen Negative Phencyclidine Screen Negative Ur Amphetamines Screen Negative MDMA (Ecstasy) Screen Negative Benzodiazepines Screen Negative Cocaine Screen Negative U Marijuana (THC) Screen Negative Alcohol, Quantitative Acetone, Qual 01/21/19 19:00 WBC RBC Hgb Hct MCV MCH MCHC RDW Plt Count MPV Absolute Neuts (auto) Total Counted Neutrophils % Neutrophils % (Manual) Band Neutrophils % Lymphocytes % Lymphocytes % (Manual) Monocytes % (Manual) Basophils % (Manual) Myelocytes % (Man) Nucleated RBC % Differential Comment Hypochromia Platelet Estimate Platelet Comment Polychromasia Macrocytosis PT with INR INR VBG pH POC VBG pCO2 POC VBG pO2 VBG HCO3 VBG O2 Sat (Billie) VBG Base Excess Sodium Potassium Chloride Carbon Dioxide Anion Gap BUN Creatinine Est GFR (CKD-EPI)AfAm Est GFR (CKD-EPI)NonAf POC Glucometer Random Glucose Lactic Acid Calcium Magnesium Total Bilirubin AST ALT Alkaline Phosphatase Creatine Kinase Troponin I Total Protein Albumin TSH Free T4 Serum , Qual Urine Color Yellow Urine Appearance Cloudy Urine pH 5.0 Ur Specific [place] 1.023 Urine Protein Negative Urine Glucose (UA) 3+ H Urine Ketones Trace H Urine Blood Trace Urine Nitrite Negative Urine Bilirubin Negative Urine Urobilinogen 0.2 Ur Leukocyte Esterase Negative Urine WBC (Auto) 7.6 Urine RBC (Auto) 0.9 Urine Casts (Auto) 6.38 U Epithel Cells (Auto) 1.9 Urine Bacteria (Auto) 1.2 Salicylates Opiates Screen Methadone Screen Acetaminophen Barbiturate Screen Phencyclidine Screen Ur Amphetamines Screen MDMA (Ecstasy) Screen Benzodiazepines Screen Cocaine Screen U Marijuana (THC) Screen Alcohol, Quantitative Acetone, Qual VBG shows pH of 6.93 with low bicarb. In addition, patient remained hypotensive s/p 2 Liters of NS. Ordered 3x 1 L NS bags to maintain blood pressure. In addition, patient continues to be alert and oriented x1, but maintaining adequate airway protection at the time being. Potassium resulted at 7.1. Will begin insulin at 0.2 units/kg/hr. At this time, the patient is s/p 5 liters of NS and remains hypotensive with MAPs in the 30s- 40s. Verbal consent was obtained from family member to place a central line. Given patient's AMS, inability to follow commands, and speed of central access needed to start vasopressors, a femoral line was placed (refer to procedure note ). Glucose in the 1400s with elevated anion gap; likely DKA. Patients thyroid studies show elevated TSH, but normal t4. Troponin elevated, likely secondary to demand ischemia. Upon secondary evaluation of the patient, she states she takes fludrocortisone for low blood pressure of unknown causes. Patient was given home dose of 0.1 mg. Patient was endorses to ICU and accepted for admission. Dispo: Admit to ICU *DC/Admit/Observation/Transfer Diagnosis at time of Disposition: LESTER (acute kidney injury), DKA (diabetic ketoacidoses), Demand ischemia Hypotension Qualifiers: Hypotension type: orthostatic hypotension Qualified Code(s): I95.1 - Orthostatic hypotension - Referrals - Patient Instructions - Post Discharge Activity
[2019-01-21] MEDS ORDERED: SODIUM CHLORIDE 1,000 ML IV STA ×5 (17:49→19:39)
[2019-01-21 18:08] LABS: VENOUS PC02 18.7 mmHg (41-51); VENOUS PO2 87.4 mmHg (30-40)
[2019-01-21 18:10] LABS: VENOUS PH 6.93 (7.31-7.41)
[2019-01-21] MEDS ORDERED: PIPERACILLIN/TAZOB 3.375 GM 3.375 GM in DEXTROSE 5%-WATER - 50 ML IVPB ONE (18:37)
[2019-01-21] MEDS ORDERED: PIPERACILLIN/TAZOB 3.375 GM 3.375 GM/50 ML BAG IVPB ONE (18:44)
--- NOTE | 2019-01-21 18:55 | CONSULT ---
Consultation: REQUESTING PROVIDER: Dr. Pabon CONSULT REQUEST: We have been asked to medically evaluate this patient for diabetic ketoacidosis HISTORY OF PRESENT ILLNESS: 33 year old female with a history of type I diabetes that was diagnosed at age 15, hypothyroidism, diabetic retinopathy, presented to the ED for altered mental status. Per mother at bedside, she believes that the daughter's insulin pump had not been working today. She had her glucose measured at home yesterday and it was >600 on her monitor, after which she gave herself a dose of insulin through her pump. Similarly, this morning she had another BGM of >600 and also used insulin. Despite using her insulin the mother reported that she still did not feel like herself in the day. She notes nausea without vomiting. Denies chest pain, shortness of breath, nausea, vomiting, diarrhea, fevers, chills. Reports frequent urination and dysuria. Also states that she takes synthroid at home for hypothyroidism. The only medications she takes at home are an insulin pump and fludrocortisone for her blood pressure - and states that she may have been told she has adrenal insufficiency, but that she was not officially diagnosed. Denied alcohol, drug or tobacco use. Family History: patient's mother 3 years ago from end stage renal disease from rheumatoid arthritis REVIEW OF SYSTEMS: CONSTITUTIONAL: Absent: fever, chills, diaphoresis, generalized weakness, malaise, loss of appetite, weight change HEENT: Absent: rhinorrhea, nasal congestion, throat pain, throat swelling, difficulty swallowing, mouth swelling, ear pain, eye pain, visual changes CARDIOVASCULAR: Absent: chest pain, syncope, palpitations, irregular heart rate, lightheadedness , peripheral edema RESPIRATORY: Absent: cough, shortness of breath, dyspnea with exertion, orthopnea, wheezing, stridor, hemoptysis GASTROINTESTINAL: nausea Absent: abdominal pain, abdominal distension, vomiting, diarrhea, constipation, melena, hematochezia GENITOURINARY: Absent: dysuria, frequency, urgency, hesitancy, hematuria, flank pain, genital pain MUSCULOSKELETAL: Absent: myalgia, arthralgia, joint swelling, back pain, neck pain SKIN: Absent: rash, itching, pallor HEMATOLOGIC/IMMUNOLOGIC: Absent: easy bleeding, easy bruising, lymphadenopathy, frequent infections ENDOCRINE: Absent: unexplained weight gain, unexplained weight loss, heat intolerance, cold intolerance NEUROLOGIC: mental status changes Absent: headache, focal weakness or paresthesias, dizziness, unsteady gait, seizure, bladder or bowel incontinence PSYCHIATRIC: Absent: anxiety, depression, suicidal or homicidal ideation, hallucinations. PHYSICAL EXAMINATION Vital Signs - 24 hr 01/21/19 01/21/19 01/21/19 17:25 17:32 18:00 Temperature 98.7 F 92.8 F L Pulse Rate 63 Pulse Rate [ 67 65 Apical] Respiratory 16 17 16 Rate Blood Pressure 114/63 Blood Pressure 114/76 58/40 L [Left Arm] O2 Sat by Pulse 100 100 93 L Oximetry (%) 01/21/19 18:02 Temperature Pulse Rate Pulse Rate [ Apical] Respiratory Rate Blood Pressure Blood Pressure [Left Arm] O2 Sat by Pulse 98 Oximetry (%) GENERAL: A&Ox2, moderate distress EYES: cataracts noted in b/l eyes, patient is blind and is only able to see colors and motion ENT: Dry mucus membranes, acetone breath smelled NECK: No JVD, mild goiter noted on exam, nontender LUNGS: CTA, no wheezes, kussmaul respirations noted HEART: RRR, no murmurs ABDOMEN: Soft, nontender, BS present MUSCULOSKELETAL: No CVA Tenderness EXTREMITIES: 2+ pulses, no edema. NEUROLOGICAL: Difficult to assess neurologic status based on mental status, but patient is able to move all four extremities Laboratory Last Values WBC 10.6 K/mm3 (4.0-10.0) H 01/21/19 18:00 RBC 2.56 M/mm3 (3.60-5.2) L 01/21/19 18:00 Hgb 7.6 GM/dL (10.7-15.3) L 01/21/19 18:00 Hct 27.1 % (32.4-45.2) L 01/21/19 18:00 MCV 106.1 fl (80-96) H D 01/21/19 18:00 MCH 29.9 pg (25.7-33.7) 01/21/19 18:00 MCHC 28.2 g/dl (32.0-36.0) L 01/21/19 18:00 RDW 14.6 % (11.6-15.6) 01/21/19 18:00 Plt Count 249 K/MM3 (134-434) 01/21/19 18:00 MPV 10.4 fl (7.5-11.1) D 01/21/19 18:00 Absolute Neuts (auto) 8.5 K/mm3 (1.5-8.0) H 01/21/19 18:00 Neutrophils % No Result Required. 01/21/19 18:00 Lymphocytes % No Result Required. 01/21/19 18:00 Nucleated RBC % 0 % (0-0) 01/21/19 18:00 PT with INR 10.40 SEC (9.7-13.0) 01/21/19 18:20 INR 0.88 (0.83-1.09) 01/21/19 18:20 Anticoagulation Therapy No Result Required. 01/21/19 20:05 Puncture Site Right radial 01/21/19 20:05 ABG pH 6.94 (7.35-7.45) L* 01/21/19 20:05 ABG pCO2 at Pt Temp 14.0 mmHg (35-45) L* 01/21/19 20:05 ABG pO2 at Pt Temp 129 mmHg (80-105) H 01/21/19 20:05 ABG HCO3 2.8 mmol/L (22-27) L 01/21/19 20:05 ABG O2 Sat (Measured) 96.7 % (95-98) 01/21/19 20:05 ABG O2 Content 10.6 % vol (15-22) L 01/21/19 20:05 ABG Base Excess -27.7 meq/l (-2-2) L 01/21/19 20:05 Terell Test Positive 01/21/19 20:05 VBG pH 6.93 (7.31-7.41) L* 01/21/19 18:00 POC VBG pCO2 18.7 mmHg (41-51) L 01/21/19 18:00 POC VBG pO2 87.4 mmHg (30-40) H 01/21/19 18:00 VBG HCO3 3.7 mmol/L (23-29) L 01/21/19 18:00 VBG O2 Sat (Billie) 90.7 % (70-80) H 01/21/19 18:00 VBG Base Excess -26.7 meq/l (-2-2) L 01/21/19 18:00 O2 Delivery Device No Result Required. 01/21/19 20:05 Oxygen Flow Rate No Result Required. 01/21/19 20:05 Vent Mode No Result Required. 01/21/19 20:05 Vent Rate No Result Required. 01/21/19 20:05 Mechanical Rate No Result Required. 01/21/19 20:05 Pressure Support Vent No Result Required. 01/21/19 20:05 Sodium 116 mmol/L (136-145) L* 01/21/19 18:00 Potassium 7.1 mmol/L (3.5-5.1) H* 01/21/19 18:00 Chloride 83 mmol/L (98-107) L 01/21/19 18:00 Carbon Dioxide 6 mmol/L (21-32) L 01/21/19 18:00 Anion Gap 27 MMOL/L (8-16) H 01/21/19 18:00 BUN 65.6 mg/dL (7-18) H 01/21/19 18:00 Creatinine 2.6 mg/dL (0.55-1.3) H 01/21/19 18:00 Est GFR (CKD-EPI)AfAm 27.00 01/21/19 18:00 Est GFR (CKD-EPI)NonAf 23.30 01/21/19 18:00 POC Glucometer > 600 UNITS (80-120) 01/21/19 17:28 Random Glucose 1380 mg/dL (74-106) H* 01/21/19 18:00 Lactic Acid 3.1 mmol/L (0.4-2.0) H* 01/21/19 18:00 Calcium 7.5 mg/dL (8.5-10.1) L 01/21/19 18:00 Magnesium 2.5 mg/dL (1.8-2.4) H 01/21/19 18:00 Total Bilirubin 1.0 mg/dL (0.2-1) 01/21/19 18:00 AST 86 U/L (15-37) H 01/21/19 18:00 ALT 60 U/L (13-61) 01/21/19 18:00 Alkaline Phosphatase 176 U/L (45-117) H 01/21/19 18:00 Creatine Kinase 120 U/L (26-192) 01/21/19 18:00 Troponin I 0.18 ng/ml (0.00-0.05) H 01/21/19 18:00 Total Protein 5.2 g/dl (6.4-8.2) L 01/21/19 18:00 Albumin 2.7 g/dl (3.4-5.0) L 01/21/19 18:00 TSH 4.94 uIU/ml (0.358-3.74) H 01/21/19 18:00 Free T4 0.79 ng/dl (0.76-1.46) 01/21/19 18:00 Serum , Qual Negative 01/21/19 17:34 Urine Color Yellow 01/21/19 19:00 Urine Appearance Cloudy 01/21/19 19:00 Urine pH 5.0 (5.0-8.0) 01/21/19 19:00 Ur Specific [place] 1.023 (1.010-1.035) 01/21/19 19:00 Urine Protein Negative (NEGATIVE) 01/21/19 19:00 Urine Glucose (UA) 3+ (NEGATIVE) H 01/21/19 19:00 Urine Ketones Trace (NEGATIVE) H 01/21/19 19:00 Urine Blood Trace (NEGATIVE) 01/21/19 19:00 Urine Nitrite Negative (NEGATIVE) 01/21/19 19:00 Urine Bilirubin Negative (NEGATIVE) 01/21/19 19:00 Urine Urobilinogen 0.2 mg/dL (0.2-1.0) 01/21/19 19:00 Ur Leukocyte Esterase Negative (NEGATIVE) 01/21/19 19:00 Urine WBC (Auto) 7.6 /hpf (0-5) 01/21/19 19:00 Urine RBC (Auto) 0.9 /hpf (0-4) 01/21/19 19:00 Urine Casts (Auto) 6.38 /lpf (0-8) 01/21/19 19:00 U Epithel Cells (Auto) 1.9 /HPF (0-5/HPF) 01/21/19 19:00 Urine Bacteria (Auto) 1.2 /hpf (NEGATIVE) 01/21/19 19:00 Salicylates 5.1 mg/dL (2.8-20) 01/21/19 18:00 Opiates Screen Negative ng/ml (ROWBKB=650) 01/21/19 19:00 Methadone Screen Negative ng/ml (GTYDON=183) 01/21/19 19:00 Acetaminophen 14.6 ug/mL (10-30) 01/21/19 18:00 Barbiturate Screen Negative ng/ml (LFJZGU=520) 01/21/19 19:00 Phencyclidine Screen Negative ng/ml (CUTOFF=25) 01/21/19 19:00 Ur Amphetamines Screen Negative ng/ml (SIPMEF=250) 01/21/19 19:00 MDMA (Ecstasy) Screen Negative ng/ml (UMNWZG=674) 01/21/19 19:00 Benzodiazepines Screen Negative ng/ml (SGGRVB=561) 01/21/19 19:00 Cocaine Screen Negative ng/ml (OJCDJW=573) 01/21/19 19:00 U Marijuana (THC) Screen Negative ng/ml (CUTOFF=50) 01/21/19 19:00 Alcohol, Quantitative < 3.0 mg/dL (0.0-5.0) 01/21/19 17:50 Acetone, Qual Positive large 3+ (NEGATIVE) H 01/21/19 18:00 Active Medications Generic Name Dose Route Start Last Admin Trade Name Geovanniq PRN Reason Stop Dose Admin Sodium Chloride 1,000 mls @ 200 mls/hr 01/21/19 18:12 Normal Saline - IV 01/21/19 23:11 ASDIR STA Sodium Chloride 1,000 mls @ 1,000 mls/hr 01/21/19 18:18 01/21/19 18:27 Normal Saline - IV 01/21/19 19:17 1,000 mls/hr ASDIR STA Administration Sodium Chloride 1,000 mls @ 1,000 mls/hr 01/21/19 18:37 01/21/19 18:40 Normal Saline - IV 01/21/19 19:36 1,000 mls/hr ASDIR STA Administration Piperacillin Sod/Tazobactam 50 mls @ 100 mls/hr 01/21/19 18:37 Sod 3.375 gm/ Dextrose IVPB 01/21/19 19:06 ONCE ONE Protocol ASSESSMENT/PLAN: 33 year old female with a history of type I diabetes that was diagnosed at age 15 and prior episodes of DKA presented to the ED for altered mental status and admitted for the treatment of diabetic ketoacidosis #Diabetic Ketoacidosis #Anion gap metabolic acidosis #Altered Mental Status #Hypovolemic Shock #Pseudohyponatremia #Acute Kidney Injury #Troponinemia #Hypothyroidism #Lactic acidosis #Anemia #Hypoalbuminemia Endocrine #Diabetic Ketoacidosis: patient meets criteria of acidemia (pH 6.93 on VBG), ketonemia/ketonuria, and hyperglycemia (1380); anion gap on admission was 27 -volume resuscitate with NS boluses and standing fluids at 250cc/hr and monitor K (if becomes low will switch to LR), will likely need 8-10 liters of fluids given her degree of acidemia and hyperglycemia -give bolus dose insulin and maintain on drip; patient's potassium on admission was >7, thus hold potassium -monitor fingerstick glucose every hour and adjust the insulin drip accordingly -monitor BMP for potassium, bicarbonate and anion gap and blood glucose every 2 hours -repeat ABGs every 2 hours to assess for improvement and resolution of acidosis -will assess for anion gap -monitor bicarb -Dr. Galeano consulted #Hypothyroidism: TSH was 4.94 with a Free T4 of 0.79; patient is non-compliant with this medication at home -ED gave high dose levothyroxine -confirm home levothyroxine dose and restart in AM -similarly need to confirm dose of fludrocortisone and restart in AM -Patient's primary group fitness department head is Dr. Toshia Galeano #Questionable Adrenal Insufficiency: patient has been on fludrocortisone and has multiple autoimmune diseases; could be a component of [place] disease -will consult Dr. Galeano for evaluation of multiple endocrine abnormalities and insulin pump management Neurological #Altered Mental Status: secondary to DKA -continue to monitor mental status for signs of deterioration or lethargy Cardiovascular #Hypovolemic Shock: initially unresponsive to fluid resuscitation after pressure bagging 3L of normal saline through peripheral IV lines; could also be a component of severe acidemia influencing cardiac output -continue to give fluids through peripheral IV -monitor blood pressures #Troponinemia: could be demand related in the setting of diabetic ketoacidosis and -EKG revealed mild ST segment depressions in leads V4-V6 and a prolonged Qtc of 488; this likely is also due to demand ischemia and not overt plaque rupture; also flattened P waves are appreciated which could be a result of the hyperkalemia. -will trend troponins Q6h until the value plateaus -will repeat EKG in 4 hours to assess for changes or progression Renal #Acute Kidney Injury: this is likely related to hypovolemia from osmotic diuresis due to a glucose level of 1350 -aggressively hydrate patient -recheck BMPs q2h per DKA protocol #Anion gap metabolic acidosis: secondary to diabetic ketoacidosis with component of lactic acidosis -trend lactate until normalization -continue to treat for diabetic ketoacidosis as per above #Hyperkalemia: initial potassium was 7.1 -started insulin bolus and insulin ggt -aggressively fluid hydrate -only sign of EKG changes associated with hyperkalemia are flattened P waves -monitor potassium Q2H -if potassium decreases while on fluids and insulin ggt, may need to start potassium within intravenous fluids once level is between 4 - 5 #Pseudohyponatremia: due to a glucose of 1380, corrected sodium is 136-147 based on two sources on how to correct the value -treat the DKA and will repeat BMPs Heme/Onc #Macrocytic Anemia: hemoglobin on admission was 7.6 with an MCV of 106.1; unclear etiology at present time - while it could be as a result of a folate or B12 deficiency, in a patient with type I diabetes mellitus and hypothyroidism, it can also be possible to have pernicious anemia; could also be a result of hypothyroidism -will check serum folate, B12, iron studies, reticulocytes -no current medications that can cause macrocytosis -can confirm baseline hemoglobin level with primary physician as outpatient #Leukocytosis: likely reactive from stress/DKA Pulmonary -patient has kussmaul respirations on exam -chest xray appears clear -no other pulmonary pathology Gastrointestinal -no active issues FEN -will continue to bolus with saline and provide maintenance fluids at 250cc/hr, may add potassium based on repeat levels on BMPs -check electrolytes every 2 hours -NPO Lines -right sided femoral catheter placed 01/21/19 Prophylaxis -heparin prophylaxis Disposition -ICU level of care -critical care time 120 minutes Kevin Newman D.O. PGY-3 Internal Medicine Case discussed with Dr. Briscoe Visit type - Emergency Visit Emergency Visit: Yes ED Registration Date: 01/21/19 Care time: The patient presented to the Emergency Department on the above date and was hospitalized for further evaluation of their emergent condition. - New Patient This patient is new to me today: Yes Date on this admission: 01/21/19 - Critical Care Critical Care patient: Yes Total Critical Care Time (in minutes): 120 Critical Care Statement: The care of this patient involved high complexity decision making to prevent further life threatening deterioration of the patient 's condition and/or to evaluate & treat vital organ system(s) failure or risk of failure. ATTENDING PHYSICIAN STATEMENT I saw and evaluated the patient. I reviewed the resident's note and discussed the case with the resident. I agree with the resident's findings and plan as documented. SUBJECTIVE: OBJECTIVE: ASSESSMENT AND PLAN:
[2019-01-21 19:00] LABS: INR 0.88 (0.83-1.09); PROTHROMBIN TIME (PATIENT) 10.4 SEC (9.7-13.0)
[2019-01-21] MEDS ORDERED: DOPAMINE 400 MG/D5W - 400,000 MCG/250 ML INFUS.BAG IVPB SCH (19:00)
[2019-01-21] MEDS ORDERED: INSULIN REGULAR HUMAN 100 UNITS/ML *VIAL IVPUSH ONE (19:00)
[2019-01-21] MEDS ORDERED: INSULIN REGULAR HUMAN 100 UNITS/ML *VIAL ONE (19:05)
[2019-01-21 19:06] LABS: ALBUMIN 2.7 g/dl (3.4-5.0); ALK PHOS 176 U/L (45-117); ANION GAP 27 MMOL/L (8-16); BLOOD UREA NITROGEN 65.6 mg/dL (7-18); CALCIUM 7.5 mg/dL (8.5-10.1); CHLORIDE 83 mmol/L (98-107); CO2 6 mmol/L (21-32); CREATININE 2.6 mg/dL (0.55-1.3); MAGNESIUM 2.5 mg/dL (1.8-2.4); SGOT/AST 86 U/L (15-37); SGPT/ALT 60 U/L (13-61); TOT PROT 5.2 g/dl (6.4-8.2)
[2019-01-21] MEDS ORDERED: DOPAMINE 400 MG/D5W - 400,000 MCG/250 ML INFUS.BAG IVPB ONE (19:07)
[2019-01-21 19:08] LABS: GLUCOSE,RANDOM 1380 mg/dL (74-106)
--- NOTE | 2019-01-21 19:08 | PDOC ---
Documentation entered by Randa Jerez SCRIBE, acting as scribe for Tavares Crane MD. Tavares Crane MD: This documentation has been prepared by the Solitario mendez Xhesika, SCRIBE, under my direction and personally reviewed by me in its entirety. I confirm that the documentation accurately reflects all work, treatment, procedures, and medical decision making performed by me. Attending Attestation - Resident Resident Name: Nemesio Pabon - HPI HPI: 01/21/19 18:04 The patient is a 33 year old female with a significant PMH of IDDM (dx at age 15 , on insulin pump, has had DKA before), IBS, legally blind, and prior UTI who presents to the emergency department via EMS for elevated blood sugar and AMS. As per mother, the patient has been lethargic and confused today and the patient had a BP in the 60s and blood sugar of over 600. Pt notes she gave herself 7.8 units of insulin 4hrs prior to her arrival. As per EMS, en route to the ED, the patient's blood sugar was 480 and patient received 800 normal saline. Allergies: NKDA - Physicial Exam PE: 01/21/19 19:02 Patient seen and evaluated immediately upon arrival. Patient is lethargic, but arousable to sternal rub, pale appearing, hypotensive , and hyperthermic Normocephalic, atraumatic Conjunctivae were pale Right pupil is 3 mm, round and reactive, left pupil is irregular and nonreactive mm-dry cta, tachypneic. Patient will rrr Abdomen is soft, nontender, nondistended Multiple ecchymoses and ulcerations to upper and lower extremities No focal neurological deficits - Critical Care Time Total Critical Care Time: 90 Critical Care Statement: The care of this patient involved high complexity decision making to prevent further life threatening deterioration of the patient 's condition and/or to evaluate & treat vital organ system(s) failure or risk of failure. - Medical Decision Making 01/21/19 19:04 Patient is an ill-appearing 33-year-old female with history of diabetes, previous episodes of DKA, legally blind due to diabetic retinopathy, presents altered mental status, hypotension, hypothermia and hyperglycemia due to a malfunctioning insulin-dependent pump. On evaluation, patient appears pale, with weak and thready distal pulses, without focal neurological deficits. Potential diagnoses includes DKA versus septic shock versus myxedema coma versus adrenal insufficiency. Will initiate aggressive fluid resuscitation with normal saline. Will obtain CBC/CMP/mag/cardiac profile/blood culture/UA/urine culture/VBG/chest x-ray. Will apply a bear hugger to initiate passive rewarming ; we'll cover with broad-spectrum antibiotics. Will initiate insolent drip once CMP and potassium are available. Will consider central line placement and pressors if patient remains hypotensive despite aggressive fluid resuscitation. Will admit to the ICU. 01/21/19 19:17 After administration of 1200 mL of normal saline, patient's blood pressure temporarily normalized but she is currently hypotensive. Additional fluid resuscitation has been initiated with normal saline. Central venous catheter is currently being placed for initiation of pressor support. EKG shows no evidence of hyperkalemia: There is no evidence of hyperacute T waves, widening of the QRS. ST segment depressions are noted laterally likely related to myocardial depression caused by acidemia. IV Zosyn will be administered. Patient's glucose is noted to be 1350 with an increased anion gap of 27. Presentation consistent with DKA. Will initiate insolent drip at 0.2 units per kilogram per hour. Will admit to the ICU. 01/21/19 19:22 Patient's potassium is noted to be 7.1. Given no EKG changes, calcium gluconate is not indicated. Will treat hyperkalemia with fluids and insulin. 01/21/19 20:07 Levothroid drip initiated at 5 mcg/m. ICU consulted and patient admitted to the intensive care unit further management. TSH appears to be within normal limit, however, given the presentation and significant hypothermia, we'll administer IV Synthroid. We'll continue with IV fluid resuscitation. Awaiting transfer to the ICU.
[2019-01-21 19:09] LABS: POTASSIUM 7.1 mmol/L (3.5-5.1); SODIUM 116 mmol/L (136-145)
[2019-01-21] MEDS ORDERED: INSULIN REGULAR 100 UNITS in SODIUM CHLORIDE 99 ML IVPB SCH ×2 (19:15→19:30)
[2019-01-21 19:16] LABS: URINE APPEARANCE CLOUDY; URINE BILIRUBIN NEGATIVE (NEGATIVE); URINE COLOR YELLOW; URINE GLUCOSE (UA) 3+ (NEGATIVE); URINE KETONE TRACE (NEGATIVE); URINE LEUK ESTERASE NEGATIVE (NEGATIVE); URINE NITRITE NEGATIVE (NEGATIVE); URINE PROTEIN NEGATIVE (NEGATIVE); URINE UROBILINOGEN 0.2 mg/dL (0.2-1.0)
[2019-01-21 19:18] LABS: HEMATOCRIT 27.1 % (32.4-45.2); HEMOGLOBIN 7.6 GM/dL (10.7-15.3); MCH 29.9 pg (25.7-33.7); MCHC 28.2 g/dl (32.0-36.0); MEAN CELL VOLUME 106.1 fl (80-96); MEAN PLT VOLUME 10.4 fl (7.5-11.1); PLATELET COUNT 249 K/MM3 (134-434); RBC 2.56 M/mm3 (3.60-5.2); RDW 14.6 % (11.6-15.6); WHITE BLOOD COUNT 10.6 K/mm3 (4.0-10.0)
[2019-01-21 19:22] LABS: ADD RBC MORPHOLOGY YES
[2019-01-21 19:24] LABS: ACETONE SERUM POSITIVE LARGE 3+ (NEGATIVE)
[2019-01-21] MEDS ORDERED: SODIUM CHLORIDE 1,000 ML IV SCH (19:30)
[2019-01-21] MEDS ORDERED: NOREPINEPHRINE BITARTRATE 4,000 MCG in DEXTROSE 5%-WATER - 496 ML IV SCH (19:45)
[2019-01-21 19:46] LABS: EPI CELLS 1.9 /HPF (0-5/HPF); URINE RBC 0.9 /hpf (0-4); URINE WBC 7.6 /hpf (0-5)
[2019-01-21] MEDS ORDERED: NOREPINEPHRINE BITARTRATE 4 MG/4 ML ML IV ONE (19:46)
[2019-01-21 19:47] LABS: HYALINE CASTS 6.38 /lpf (0-8); URINE BACTERIA 1.2 /hpf (NEGATIVE)
[2019-01-21 19:56] LABS: COCAINE, UR NEGATIVE ng/ml (CUTOFF=300); METHADONE, UR NEGATIVE ng/ml (CUTOFF=300); OPIATES, URI NEGATIVE ng/ml (CUTOFF=300); PHENCYCLIDINE,URINE NEGATIVE ng/ml (CUTOFF=25); URINE AMPHETAMINES NEGATIVE ng/ml (CUTOFF=500); URINE BARBITURATES NEGATIVE ng/ml (CUTOFF=200); URINE BENZODIAZEPINES NEGATIVE ng/ml (CUTOFF=200)
[2019-01-21 20:12] LABS: ARTERIAL BLD GAS O2 SATURATION 96.7 % (95-98); ARTERIAL BLOOD GAS BASE EXCESS -27.7 meq/l (-2-2); ARTERIAL BLOOD GAS PO2 129 mmHg (80-105)
[2019-01-21 20:13] LABS: ALLENS TEST POSITIVE
[2019-01-21 20:15] LABS: ARTERIAL BLOOD GAS pH 6.94 (7.35-7.45)
[2019-01-21] MEDS: FLUDROCORTISONE ACETATE 0.1 MG TABLET (FP) PO SCH (20:45)
[2019-01-21 21:07] LABS: BLOOD UREA NITROGEN 62.1 mg/dL (7-18); CREATININE 2.5 mg/dL (0.55-1.3); POTASSIUM 5.8 mmol/L (3.5-5.1)
[2019-01-21 21:21] LABS: MACROCYTOSIS 2+; PLATELET ESTIMATE ADEQUATE
[2019-01-21] MEDS: SODIUM CHLORIDE 1,000 ML IV SCH (21:30)
[2019-01-21] MEDS ORDERED: CHLORHEXIDINE GLUCONATE 4% CLEANSER FOR DECOLONIZATION TP SCH (22:00)
[2019-01-21 22:11] LABS: ARTERIAL BLD GAS O2 SATURATION 97.1 % (95-98); ARTERIAL BLOOD GAS BASE EXCESS -24.9 meq/l (-2-2); ARTERIAL BLOOD GAS PCO2 15.9 mmHg (35-45); ARTERIAL BLOOD GAS PO2 118 mmHg (80-105)
[2019-01-21 22:14] LABS: ALLENS TEST POSITIVE; ARTERIAL BLOOD GAS pH 7.05 (7.35-7.45)
[2019-01-21 22:30] LABS: BLOOD UREA NITROGEN 59.8 mg/dL (7-18); CREATININE 2.5 mg/dL (0.55-1.3); POTASSIUM 5.5 mmol/L (3.5-5.1)
[2019-01-21 22:32] LABS: CALCIUM 6.9 mg/dL (8.5-10.1)
[2019-01-21 23:53] LABS: BLOOD UREA NITROGEN 58.4 mg/dL (7-18); CREATININE 2.4 mg/dL (0.55-1.3)
--- NOTE | 2019-01-22 00:20 | HP ---
CHIEF COMPLAINT: AMS and nausea w BMG over 600 PCP: Dr. Tl Walker, (Endocirnologist: Dr. Galeano) HISTORY OF PRESENT ILLNESS: Pt is a 33 y/o F BIBEMS to the ED with altered mental status, nausea, and report of 2 days of BGM in the 600s. Pt dx w DM1 in 2000 on first DKA admission ([facility]). Last night (01/20/19) pt had BGM at home around 600 and made an attempt to adjust her insulin pump. 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 Subsequently, she states that she cannot see the display panel on her pump and believes she did not get an appropriate dosing. Her AM (01/21/19) BGM was 450 but returned to 600 by evening with peak of AMS. Pt lives with grandmother whom identified difference in pt's breathing, pt's level of alertness, and inability to respond appropriately to verbal communication. ER course was notable for: (1) Fludrocortisone 0.1 mg PO (2) Novolin vial in NS 100 mls (3) Levophed 4,000 mcg in d5w 500 mls (4) EKG sig. for ST depression (5) Acidotic with ph 6.9, hco3, K:7, gluc 1,380 (6) BP 55/45, Recent Travel: Denies PAST MEDICAL HISTORY: - DM 1 - DKA x2 (2000 & 12/22/2018 both [facility]) - IBS PAST SURGICAL HISTORY: - Tonsilectomy (1991) Social History: Vegan diet BA and MA in childhood psych. Smoking: denies Alcohol: denies Drugs: denies Family History: Mother (): rheumatoid arthritis, osteoarthritis Father: DM, CVA, obesity Grandfather: Colon [place], Grandmother: DM Allergies Pollen and dander. No known food or drug allergies. HOME MEDICATIONS: Medication Instructions Recorded Fludrocortisone Acetate 0.1 mg PO DAILY 08/10/16 Insulin Pump/Infus. Set/Meter 1 each MC ASDIR 08/10/16 [Accu-Chek Combo System] REVIEW OF SYSTEMS CONSTITUTIONAL: Absent: fever, chills, diaphoresis, generalized weakness, malaise, loss of appetite, weight change HEENT: Absent: rhinorrhea, nasal congestion, throat pain, throat swelling, difficulty swallowing, mouth swelling, ear pain, eye pain, visual changes CARDIOVASCULAR: Absent: chest pain, syncope, palpitations, irregular heart rate, lightheadedness , peripheral edema RESPIRATORY: Absent: cough, shortness of breath, dyspnea with exertion, orthopnea, wheezing, stridor, hemoptysis GASTROINTESTINAL: Absent: abdominal pain, abdominal distension, nausea, vomiting, diarrhea, constipation, melena, hematochezia GENITOURINARY: Absent: dysuria, frequency, urgency, hesitancy, hematuria, flank pain, genital pain MUSCULOSKELETAL: Absent: myalgia, arthralgia, joint swelling, back pain, neck pain SKIN: Absent: rash, itching, pallor HEMATOLOGIC/IMMUNOLOGIC: Absent: easy bleeding, easy bruising, lymphadenopathy, frequent infections ENDOCRINE: Absent: unexplained weight gain, unexplained weight loss, heat intolerance, cold intolerance NEUROLOGIC: Absent: headache, focal weakness or paresthesias, dizziness, unsteady gait, seizure, mental status changes, bladder or bowel incontinence PSYCHIATRIC: Absent: anxiety, depression, suicidal or homicidal ideation, hallucinations. PHYSICAL EXAMINATION Vital Signs - 24 hr 01/21/19 01/21/19 01/21/19 17:25 17:32 17:45 Temperature 98.7 F Pulse Rate 63 Pulse Rate [ 67 63 Apical] Respiratory 16 17 16 Rate Blood Pressure 114/63 Blood Pressure 114/76 110/43 L [Left Arm] O2 Sat by Pulse 100 100 100 Oximetry (%) 01/21/19 01/21/19 01/21/19 18:00 18:02 18:15 Temperature 92.8 F L Pulse Rate Pulse Rate [ 65 67 Apical] Respiratory 16 18 Rate Blood Pressure Blood Pressure 58/40 L 60/37 L [Left Arm] O2 Sat by Pulse 93 L 98 100 Oximetry (%) 01/21/19 01/21/19 01/21/19 19:03 19:27 19:35 Temperature Pulse Rate Pulse Rate [ 64 63 71 Apical] Respiratory 16 16 14 Rate Blood Pressure Blood Pressure 57/38 L 55/45 L 64/38 L [Left Arm] O2 Sat by Pulse 100 100 100 Oximetry (%) 01/21/19 01/21/19 01/21/19 19:56 20:05 20:30 Temperature 94.8 F L Pulse Rate 78 Pulse Rate [ 76 84 Apical] Respiratory 17 17 Rate Blood Pressure 71/39 L Blood Pressure 85/40 L 98/40 L [Left Arm] O2 Sat by Pulse 99 99 Oximetry (%) 01/21/19 01/21/19 01/21/19 21:00 21:02 21:52 Temperature 96.7 F L Pulse Rate 92 H Pulse Rate [ Apical] Respiratory 20 17 17 Rate Blood Pressure 100/48 L Blood Pressure [Left Arm] O2 Sat by Pulse 100 100 Oximetry (%) 01/21/19 01/22/19 01/22/19 22:00 00:00 00:10 Temperature 97.7 F Pulse Rate 92 H 93 H Pulse Rate [ Apical] Respiratory 17 17 17 Rate Blood Pressure 88/47 L 100/48 L Blood Pressure [Left Arm] O2 Sat by Pulse 100 Oximetry (%) GENERAL: Somnolent but a&o x3 HEAD: Normocephalic, atraumatic EYES: Pupils equal, round and but sluggishly reactive to light, pt unable to follow command of assessment of extraocular movements but attempted several times, sclera anicteric, conjunctiva clear, corneal opacity with BL scarring, consistent with diabetic keratopathy. EARS, NOSE, THROAT: Ears normal, nares patent, oropharynx clear without exudates. Dry mucous membranes. NECK: No lymphadenopathy, JVD, or masses. LUNGS: Breath sounds equal, clear to auscultation bilaterally. No wheezes, and no crackles. No accessory muscle use. HEART: Regular rate and rhythm, normal S1 and S2 without murmur, rub or gallop. ABDOMEN: Soft, nontender, not distended, hypoactive bowel sounds, no guarding, no rebound, no masses. No hepatomegaly or splenomegaly. MUSCULOSKELETAL: Unable to appreciate range of motion. No bony deformities or tenderness. UPPER EXTREMITIES: 2+ pulses, warm, moderately perfused. No cyanosis. No clubbing. No peripheral edema. LOWER EXTREMITIES: 2+ pulses, warm, moderately perfused. No calf tenderness. No peripheral edema. NEUROLOGICAL: Cranial nerves II-XII intact. Normal speech but soft spoken. Gait not appreciated. PSYCHIATRIC: Cooperative. Poor eye contact 2/2 lethargy. Appropriate mood and affect. SKIN: Diaphoretic. Warm, normal turgor, no rashes or lesions noted, capillary refill 4+. Laboratory Results - last 24 hr 01/21/19 01/21/19 01/21/19 17:28 17:34 17:50 WBC RBC Hgb Hct MCV MCH MCHC RDW Plt Count MPV Absolute Neuts (auto) Total Counted Neutrophils % Neutrophils % (Manual) Band Neutrophils % Lymphocytes % Lymphocytes % (Manual) Monocytes % (Manual) Basophils % (Manual) Myelocytes % (Man) Nucleated RBC % Differential Comment Hypochromia Platelet Estimate Platelet Comment Polychromasia Macrocytosis PT with INR INR Anticoagulation Therapy Puncture Site ABG pH ABG pCO2 at Pt Temp ABG pO2 at Pt Temp ABG HCO3 ABG O2 Sat (Measured) ABG O2 Content ABG Base Excess Terell Test VBG pH POC VBG pCO2 POC VBG pO2 VBG HCO3 VBG O2 Sat (Billie) VBG Base Excess O2 Delivery Device Oxygen Flow Rate Vent Mode Vent Rate Mechanical Rate Pressure Support Vent Sodium Potassium Chloride Carbon Dioxide Anion Gap BUN Creatinine Est GFR (CKD-EPI)AfAm Est GFR (CKD-EPI)NonAf POC Glucometer > 600 Random Glucose Lactic Acid Calcium Magnesium Total Bilirubin AST ALT Alkaline Phosphatase Creatine Kinase Troponin I Total Protein Albumin TSH Free T4 Serum , Qual Negative Urine Color Urine Appearance Urine pH Ur Specific [place] Urine Protein Urine Glucose (UA) Urine Ketones Urine Blood Urine Nitrite Urine Bilirubin Urine Urobilinogen Ur Leukocyte Esterase Urine WBC (Auto) Urine RBC (Auto) Urine Casts (Auto) U Epithel Cells (Auto) Urine Bacteria (Auto) Salicylates Opiates Screen Methadone Screen Acetaminophen Barbiturate Screen Phencyclidine Screen Ur Amphetamines Screen MDMA (Ecstasy) Screen Benzodiazepines Screen Cocaine Screen U Marijuana (THC) Screen Alcohol, Quantitative < 3.0 Acetone, Qual 01/21/19 01/21/19 01/21/19 18:00 18:00 18:00 WBC 10.6 H RBC 2.56 L Hgb 7.6 L Hct 27.1 L MCV 106.1 H D MCH 29.9 MCHC 28.2 L RDW 14.6 Plt Count 249 MPV 10.4 D Absolute Neuts (auto) 8.5 H Total Counted 100 Neutrophils % No Result Required. Neutrophils % (Manual) 71.0 Band Neutrophils % 5.0 Lymphocytes % No Result Required. Lymphocytes % (Manual) 17.0 Monocytes % (Manual) 5 Basophils % (Manual) 1.0 Myelocytes % (Man) 1 Nucleated RBC % 0 Differential Comment Man diff performed Hypochromia 1+ Platelet Estimate Adequate Platelet Comment Polychromasia 1+ Macrocytosis 2+ PT with INR INR Anticoagulation Therapy Puncture Site ABG pH ABG pCO2 at Pt Temp ABG pO2 at Pt Temp ABG HCO3 ABG O2 Sat (Measured) ABG O2 Content ABG Base Excess Terell Test VBG pH POC VBG pCO2 POC VBG pO2 VBG HCO3 VBG O2 Sat (Billie) VBG Base Excess O2 Delivery Device Oxygen Flow Rate Vent Mode Vent Rate Mechanical Rate Pressure Support Vent Sodium 116 L* Potassium 7.1 H* Chloride 83 L Carbon Dioxide 6 L Anion Gap 27 H BUN 65.6 H Creatinine 2.6 H Est GFR (CKD-EPI)AfAm 27.00 Est GFR (CKD-EPI)NonAf 23.30 POC Glucometer Random Glucose 1380 H* Lactic Acid 3.1 H* Calcium 7.5 L Magnesium 2.5 H Total Bilirubin 1.0 AST 86 H ALT 60 Alkaline Phosphatase 176 H Creatine Kinase 120 Troponin I 0.18 H Total Protein 5.2 L Albumin 2.7 L TSH 4.94 H Free T4 0.79 Serum , Qual Urine Color Urine Appearance Urine pH Ur Specific [place] Urine Protein Urine Glucose (UA) Urine Ketones Urine Blood Urine Nitrite Urine Bilirubin Urine Urobilinogen Ur Leukocyte Esterase Urine WBC (Auto) Urine RBC (Auto) Urine Casts (Auto) U Epithel Cells (Auto) Urine Bacteria (Auto) Salicylates 5.1 Opiates Screen Methadone Screen Acetaminophen 14.6 Barbiturate Screen Phencyclidine Screen Ur Amphetamines Screen MDMA (Ecstasy) Screen Benzodiazepines Screen Cocaine Screen U Marijuana (THC) Screen Alcohol, Quantitative Acetone, Qual Positive large 3+ H 01/21/19 01/21/19 01/21/19 18:00 18:20 19:00 WBC RBC Hgb Hct MCV MCH MCHC RDW Plt Count MPV Absolute Neuts (auto) Total Counted Neutrophils % Neutrophils % (Manual) Band Neutrophils % Lymphocytes % Lymphocytes % (Manual) Monocytes % (Manual) Basophils % (Manual) Myelocytes % (Man) Nucleated RBC % Differential Comment Hypochromia Platelet Estimate Platelet Comment Polychromasia Macrocytosis PT with INR 10.40 INR 0.88 Anticoagulation Therapy Puncture Site ABG pH ABG pCO2 at Pt Temp ABG pO2 at Pt Temp ABG HCO3 ABG O2 Sat (Measured) ABG O2 Content ABG Base Excess Terell Test VBG pH 6.93 L* POC VBG pCO2 18.7 L POC VBG pO2 87.4 H VBG HCO3 3.7 L VBG O2 Sat (Billie) 90.7 H VBG Base Excess -26.7 L O2 Delivery Device Oxygen Flow Rate Vent Mode Vent Rate Mechanical Rate Pressure Support Vent Sodium Potassium Chloride Carbon Dioxide Anion Gap BUN Creatinine Est GFR (CKD-EPI)AfAm Est GFR (CKD-EPI)NonAf POC Glucometer Random Glucose Lactic Acid Calcium Magnesium Total Bilirubin AST ALT Alkaline Phosphatase Creatine Kinase Troponin I Total Protein Albumin TSH Free T4 Serum , Qual Urine Color Urine Appearance Urine pH Ur Specific [place] Urine Protein Urine Glucose (UA) Urine Ketones Urine Blood Urine Nitrite Urine Bilirubin Urine Urobilinogen Ur Leukocyte Esterase Urine WBC (Auto) Urine RBC (Auto) Urine Casts (Auto) U Epithel Cells (Auto) Urine Bacteria (Auto) Salicylates Opiates Screen Negative Methadone Screen Negative Acetaminophen Barbiturate Screen Negative Phencyclidine Screen Negative Ur Amphetamines Screen Negative MDMA (Ecstasy) Screen Negative Benzodiazepines Screen Negative Cocaine Screen Negative U Marijuana (THC) Screen Negative Alcohol, Quantitative Acetone, Qual 01/21/19 01/21/19 01/21/19 19:00 20:05 20:30 WBC RBC Hgb Hct MCV MCH MCHC RDW Plt Count MPV Absolute Neuts (auto) Total Counted Neutrophils % Neutrophils % (Manual) Band Neutrophils % Lymphocytes % Lymphocytes % (Manual) Monocytes % (Manual) Basophils % (Manual) Myelocytes % (Man) Nucleated RBC % Differential Comment Hypochromia Platelet Estimate Platelet Comment Polychromasia Macrocytosis PT with INR INR Anticoagulation Therapy No Result Required. Puncture Site Right radial ABG pH 6.94 L* ABG pCO2 at Pt Temp 14.0 L* ABG pO2 at Pt Temp 129 H ABG HCO3 2.8 L ABG O2 Sat (Measured) 96.7 ABG O2 Content 10.6 L ABG Base Excess -27.7 L Terell Test Positive VBG pH POC VBG pCO2 POC VBG pO2 VBG HCO3 VBG O2 Sat (Billie) VBG Base Excess O2 Delivery Device No Result Required. Oxygen Flow Rate No Result Required. Vent Mode No Result Required. Vent Rate No Result Required. Mechanical Rate No Result Required. Pressure Support Vent No Result Required. Sodium 126 L Potassium 5.5 H Chloride 95 L Carbon Dioxide 6 L Anion Gap 25 H BUN 59.8 H Creatinine 2.5 H Est GFR (CKD-EPI)AfAm 28.31 Est GFR (CKD-EPI)NonAf 24.43 POC Glucometer Random Glucose 1062 H* Lactic Acid Calcium 6.9 L* Magnesium Total Bilirubin AST ALT Alkaline Phosphatase Creatine Kinase Troponin I Total Protein Albumin TSH Free T4 Serum , Qual Urine Color Yellow Urine Appearance Cloudy Urine pH 5.0 Ur Specific [place] 1.023 Urine Protein Negative Urine Glucose (UA) 3+ H Urine Ketones Trace H Urine Blood Trace Urine Nitrite Negative Urine Bilirubin Negative Urine Urobilinogen 0.2 Ur Leukocyte Esterase Negative Urine WBC (Auto) 7.6 Urine RBC (Auto) 0.9 Urine Casts (Auto) 6.38 U Epithel Cells (Auto) 1.9 Urine Bacteria (Auto) 1.2 Salicylates Opiates Screen Methadone Screen Acetaminophen Barbiturate Screen Phencyclidine Screen Ur Amphetamines Screen MDMA (Ecstasy) Screen Benzodiazepines Screen Cocaine Screen U Marijuana (THC) Screen Alcohol, Quantitative Acetone, Qual 01/21/19 01/21/19 01/21/19 20:30 22:00 22:45 WBC RBC Hgb Hct MCV MCH MCHC RDW Plt Count MPV Absolute Neuts (auto) Total Counted Neutrophils % Neutrophils % (Manual) Band Neutrophils % Lymphocytes % Lymphocytes % (Manual) Monocytes % (Manual) Basophils % (Manual) Myelocytes % (Man) Nucleated RBC % Differential Comment Hypochromia Platelet Estimate Platelet Comment Polychromasia Macrocytosis PT with INR INR Anticoagulation Therapy Puncture Site Right radial ABG pH 7.05 L* ABG pCO2 at Pt Temp 15.9 L ABG pO2 at Pt Temp 118 H ABG HCO3 4.2 L ABG O2 Sat (Measured) 97.1 ABG O2 Content 11.1 L ABG Base Excess -24.9 L Terell Test Positive VBG pH POC VBG pCO2 POC VBG pO2 VBG HCO3 VBG O2 Sat (Billie) VBG Base Excess O2 Delivery Device Room air Oxygen Flow Rate No Vent Mode Vent Rate Mechanical Rate Pressure Support Vent Sodium 123 L 127 L Potassium 5.8 H 5.0 Chloride 92 L 97 L Carbon Dioxide 6 L 7 L Anion Gap 25 H 24 H BUN 62.1 H 58.4 H Creatinine 2.5 H 2.4 H Est GFR (CKD-EPI)AfAm 28.31 29.75 Est GFR (CKD-EPI)NonAf 24.43 25.66 POC Glucometer Random Glucose 1187 H* Lactic Acid Calcium 7.0 L 7.0 L Magnesium Total Bilirubin AST ALT Alkaline Phosphatase Creatine Kinase Troponin I Total Protein Albumin TSH Free T4 Serum , Qual Urine Color Urine Appearance Urine pH Ur Specific [place] Urine Protein Urine Glucose (UA) Urine Ketones Urine Blood Urine Nitrite Urine Bilirubin Urine Urobilinogen Ur Leukocyte Esterase Urine WBC (Auto) Urine RBC (Auto) Urine Casts (Auto) U Epithel Cells (Auto) Urine Bacteria (Auto) Salicylates Opiates Screen Methadone Screen Acetaminophen Barbiturate Screen Phencyclidine Screen Ur Amphetamines Screen MDMA (Ecstasy) Screen Benzodiazepines Screen Cocaine Screen U Marijuana (THC) Screen Alcohol, Quantitative Acetone, Qual 01/21/19 23:22 WBC RBC Hgb Hct MCV MCH MCHC RDW Plt Count MPV Absolute Neuts (auto) Total Counted Neutrophils % Neutrophils % (Manual) Band Neutrophils % Lymphocytes % Lymphocytes % (Manual) Monocytes % (Manual) Basophils % (Manual) Myelocytes % (Man) Nucleated RBC % Differential Comment Hypochromia Platelet Estimate Platelet Comment Polychromasia Macrocytosis PT with INR INR Anticoagulation Therapy Puncture Site ABG pH ABG pCO2 at Pt Temp ABG pO2 at Pt Temp ABG HCO3 ABG O2 Sat (Measured) ABG O2 Content ABG Base Excess Terell Test VBG pH POC VBG pCO2 POC VBG pO2 VBG HCO3 VBG O2 Sat (Billie) VBG Base Excess O2 Delivery Device Oxygen Flow Rate Vent Mode Vent Rate Mechanical Rate Pressure Support Vent Sodium Potassium Chloride Carbon Dioxide Anion Gap BUN Creatinine Est GFR (CKD-EPI)AfAm Est GFR (CKD-EPI)NonAf POC Glucometer Random Glucose Lactic Acid 2.1 H Calcium Magnesium Total Bilirubin AST ALT Alkaline Phosphatase Creatine Kinase Troponin I Total Protein Albumin TSH Free T4 Serum , Qual Urine Color Urine Appearance Urine pH Ur Specific [place] Urine Protein Urine Glucose (UA) Urine Ketones Urine Blood Urine Nitrite Urine Bilirubin Urine Urobilinogen Ur Leukocyte Esterase Urine WBC (Auto) Urine RBC (Auto) Urine Casts (Auto) U Epithel Cells (Auto) Urine Bacteria (Auto) Salicylates Opiates Screen Methadone Screen Acetaminophen Barbiturate Screen Phencyclidine Screen Ur Amphetamines Screen MDMA (Ecstasy) Screen Benzodiazepines Screen Cocaine Screen U Marijuana (THC) Screen Alcohol, Quantitative Acetone, Qual ASSESSMENT/PLAN: 33 y/o F with h/o DM1 and DKA x2 brought to ED w AMS and admitted for the care of DKA # Diabetic Ketoacidosis - Hyperglycemia: gluc 1380 - POSITIVE ketonemia/ketonuria - Acidemia: pH 6.93 - Given fluid bolus: NS - Insulin drip started - F/u serum K with CMP. Currently K: 7.1 - BGM #Anion gap metabolic acidosis - Anion gap: 27, corrected for albumin: 30.3 - F/u CMP - F/u lactate - Treat acidosis as above # Hyperkalemia - K 7.1 - Cardiac function risk - F/u CMP - Provide fluid and insulin - EKG # Hyponatremia - Na: 123 - Na corrected for gluc: 136 - F/u CMP # Altered Mental Status - Treat DKA to address underlying medical condition - [place] regularly # Hypovolemic Shock - BP 55/45 - 3L NS given - Cont. 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 ACD - Poss. nutritional deficiency in the setting of Veganism: F/u folate, B12, iron studies, # Leukocytosis - WBC 10.6 - Poss. left shit # F/E/N - NS at 250 cc/hour - Monitor electrolytes - NPO # DVT prophylaxis - Hep 5,000 units sq # Dispo Full code Visit type - Emergency Visit Emergency Visit: Yes ED Registration Date: 01/21/19 Care time: The patient presented to the Emergency Department on the above date and was hospitalized for further evaluation of their emergent condition. - New Patient This patient is new to me today: Yes Date on this admission: 01/21/19 - Critical Care Critical Care patient: Yes Total Critical Care Time (in minutes): 40 Critical Care Statement: The care of this patient involved high complexity decision making to prevent further life threatening deterioration of the patient 's condition and/or to evaluate & treat vital organ system(s) failure or risk of failure. ATTENDING PHYSICIAN STATEMENT I saw and evaluated the patient. I reviewed the resident's note and discussed the case with the resident. I agree with the resident's findings and plan as documented. SUBJECTIVE: OBJECTIVE: ASSESSMENT AND PLAN:
[2019-01-22 00:45] LABS: HEMATOCRIT 25.4 % (32.4-45.2); HEMOGLOBIN 7.8 GM/dL (10.7-15.3); MCH 28.9 pg (25.7-33.7); MCHC 30.6 g/dl (32.0-36.0); MEAN CELL VOLUME 94.5 fl (80-96); MEAN PLT VOLUME 9.8 fl (7.5-11.1); PLATELET COUNT 330 K/MM3 (134-434); RBC 2.68 M/mm3 (3.60-5.2); RDW 13.6 % (11.6-15.6); WHITE BLOOD COUNT 23.3 K/mm3 (4.0-10.0)
--- NOTE | 2019-01-22 01:09 | PN ---
Teaching Attending Note Name of Resident: Khoa Simpson ATTENDING PHYSICIAN STATEMENT I saw and evaluated the patient. I reviewed the resident's note and discussed the case with the resident. I agree with the resident's findings and plan as documented. She is a 33 Y/O F W uncontrolled DM, multiple admission for DKA and previous ICU admission for it, last admitted 1 month ago in another facility, was BIBE by her grandmother for AMS. Per her family her FS have been running high and she has been nauseous from yesterday , while her FS have been >600 and she had a concern about malfunctioning of her insulin pump. on admission to the ED she was found to be acidotic with ph 6.9, hco3, K:7 and she was altered. She was also hypotensive,and Glucose>1000, central line placed, she had 3 l NS and was started on insulin drip. in ICU she was started on pressers and her BP has improved.acidosis has improoved PH7.1 and Hco 6 at this time. still complains of nausea. Last Vital Signs Temp Pulse Resp BP Pulse Ox 96.7 F L 92 H 20 100/48 L 100 01/22/19 00:47 01/22/19 00:47 01/22/19 00:47 01/22/19 00:47 01/22/19 00:00 a&ox3 MMM No ulcers, CTAB abd:BS+ nt/nd EXT: no edema CBCD WBC 23.3 K/mm3 (4.0-10.0) H 01/22/19 00:20 RBC 2.68 M/mm3 (3.60-5.2) L 01/22/19 00:20 Hgb 7.8 GM/dL (10.7-15.3) L 01/22/19 00:20 Hct 25.4 % (32.4-45.2) L 01/22/19 00:20 MCV 94.5 fl (80-96) D 01/22/19 00:20 MCHC 30.6 g/dl (32.0-36.0) L 01/22/19 00:20 RDW 13.6 % (11.6-15.6) 01/22/19 00:20 Plt Count 330 K/MM3 (134-434) D 01/22/19 00:20 MPV 9.8 fl (7.5-11.1) 01/22/19 00:20 CMP Sodium 128 mmol/L (136-145) L 01/22/19 00:20 Potassium 4.8 mmol/L (3.5-5.1) 01/22/19 00:20 Chloride 99 mmol/L (98-107) 01/22/19 00:20 Carbon Dioxide 9 mmol/L (21-32) L 01/22/19 00:20 Anion Gap 20 MMOL/L (8-16) H 01/22/19 00:20 BUN 57.5 mg/dL (7-18) H 01/22/19 00:20 Creatinine 2.4 mg/dL (0.55-1.3) H 01/22/19 00:20 Random Glucose 860 mg/dL (74-106) H* 01/22/19 00:20 Calcium 7.1 mg/dL (8.5-10.1) L 01/22/19 00:20 Total Bilirubin 1.0 mg/dL (0.2-1) 01/21/19 18:00 AST 86 U/L (15-37) H 01/21/19 18:00 ALT 60 U/L (13-61) 01/21/19 18:00 Alkaline Phosphatase 176 U/L (45-117) H 01/21/19 18:00 Total Protein 5.2 g/dl (6.4-8.2) L 01/21/19 18:00 Albumin 2.7 g/dl (3.4-5.0) L 01/21/19 18:00 CARDIAC ENZYMES Creatine Kinase 120 U/L (26-192) 01/21/19 18:00 Troponin I 1.11 ng/ml (0.00-0.05) H* 01/21/19 22:45 A&P: Admit patient to ICU, will C/w aggressive hydration with NS at this time , Keep K >4.5 while on Insulin drip. monitor FS Q1h, BMP / VBG Q 4H at this time. No source of infection at this time, will review the etiology when she is more awake. Hypotension, possible hypoadrenalism, will further evalaute when she is more stable, and will discuss with her Medical Laboratory Manager She also has HX of hypothyroidism will C/W home medication unlikely to be in myedema at this time. Elevated troponin can be in the setting of distress, will send CPK and will get EKG and monirot on tele, no need fro AC but she has to be on ASA and statin for her uncontrolled DM. rest of the management per HS note.
[2019-01-22 01:11] LABS: BLOOD UREA NITROGEN 57.5 mg/dL (7-18); CALCIUM 7.1 mg/dL (8.5-10.1); CREATININE 2.4 mg/dL (0.55-1.3); POTASSIUM 4.8 mmol/L (3.5-5.1)
[2019-01-22] MEDS: MUPIROCIN 2% TOPICAL OINTMENT FOR DECOLONIZATION NS SCH ×3 (02:13→22:28)
[2019-01-22] MEDS: HEPARIN NA (PORCINE) 5,000 UNITS/ML 1ML VIAL SQ SCH ×4 (02:18→18:11)
[2019-01-22 02:29] LABS: ARTERIAL BLD GAS O2 SATURATION 86.5 % (95-98); ARTERIAL BLOOD GAS BASE EXCESS -16.7 meq/l (-2-2); ARTERIAL BLOOD GAS PCO2 27.8 mmHg (35-45); ARTERIAL BLOOD GAS PO2 56.3 mmHg (80-105)
[2019-01-22 02:31] LABS: ALLENS TEST POSITIVE
[2019-01-22 02:33] LABS: ARTERIAL BLOOD GAS pH 7.18 (7.35-7.45)
[2019-01-22 02:57] LABS: URINE APPEARANCE CLEAR; URINE BILIRUBIN NEGATIVE (NEGATIVE); URINE COLOR YELLOW; URINE GLUCOSE (UA) 3+ (NEGATIVE); URINE KETONE 1+ (NEGATIVE); URINE LEUK ESTERASE NEGATIVE (NEGATIVE); URINE NITRITE NEGATIVE (NEGATIVE); URINE PROTEIN TRACE (NEGATIVE); URINE UROBILINOGEN 0.2 mg/dL (0.2-1.0)
[2019-01-22 03:19] LABS: BLOOD UREA NITROGEN 55.8 mg/dL (7-18); CALCIUM 7.1 mg/dL (8.5-10.1); CREATININE 2.5 mg/dL (0.55-1.3); POTASSIUM 4.7 mmol/L (3.5-5.1)
[2019-01-22 03:29] LABS: EPI CELLS 4 /HPF (0-5/HPF); URINE RBC 10 /hpf (0-4); URINE WBC 3 /hpf (0-5)
[2019-01-22 03:30] LABS: HYALINE CASTS 3 /lpf (0-8); URINE BACTERIA 30 /hpf (NEGATIVE)
[2019-01-22 05:17] LABS: BLOOD UREA NITROGEN 54.7 mg/dL (7-18); CALCIUM 7.3 mg/dL (8.5-10.1); CREATININE 2.5 mg/dL (0.55-1.3); POTASSIUM 4.3 mmol/L (3.5-5.1)
[2019-01-22 05:52] LABS: ARTERIAL BLD GAS O2 SATURATION 94.2 % (95-98); ARTERIAL BLOOD GAS BASE EXCESS -12.5 meq/l (-2-2); ARTERIAL BLOOD GAS PCO2 32.9 mmHg (35-45); ARTERIAL BLOOD GAS PO2 74.3 mmHg (80-105); ARTERIAL BLOOD GAS pH 7.24 (7.35-7.45)
[2019-01-22 05:53] LABS: ALLENS TEST POSITIVE
[2019-01-22 07:16] LABS: HEMATOCRIT 23.7 % (32.4-45.2); HEMOGLOBIN 7.7 GM/dL (10.7-15.3); MCH 28.8 pg (25.7-33.7); MCHC 32.3 g/dl (32.0-36.0); MEAN CELL VOLUME 89.3 fl (80-96); MEAN PLT VOLUME 9.5 fl (7.5-11.1); PLATELET COUNT 305 K/MM3 (134-434); RBC 2.66 M/mm3 (3.60-5.2); RDW 13.3 % (11.6-15.6); WHITE BLOOD COUNT 18.5 K/mm3 (4.0-10.0)
[2019-01-22 07:42] LABS: BLOOD UREA NITROGEN 50.3 mg/dL (7-18); CALCIUM 7.2 mg/dL (8.5-10.1); CREATININE 2.4 mg/dL (0.55-1.3); POTASSIUM 4.1 mmol/L (3.5-5.1)
[2019-01-22 08:06] LABS: IRON SERUM 57 ug/dL (50-175); MAGNESIUM 1.9 mg/dL (1.8-2.4); PHOSPHOROUS 4.1 mg/dL (2.5-4.9); TOTAL IRON BINDING CAPACITY 245 ug/dL (250-450)
[2019-01-22] MEDS ORDERED: ONDANSETRON 4 MG/2 ML VIAL IVPUSH PRN ×2 (08:31→10:19)
[2019-01-22 09:08] LABS: BLOOD UREA NITROGEN 47.8 mg/dL (7-18); CALCIUM 7.4 mg/dL (8.5-10.1); CREATININE 2.2 mg/dL (0.55-1.3); POTASSIUM 3.8 mmol/L (3.5-5.1)
[2019-01-22] MEDS ORDERED: FLUDROCORTISONE ACETATE 0.1 MG TABLET (FP) PO SCH (10:00)
[2019-01-22] MEDS ORDERED: MUPIROCIN 2% TOPICAL OINTMENT FOR DECOLONIZATION NS SCH (10:00)
--- NOTE | 2019-01-22 10:01 | CON.CARD ---
Consult Consult Specialty:: Cardiology Referred by:: Hospitalist Reason for Consultation:: Cardiac evaluation (Coverage for Drs. Gaspar/ Antwan) - History of Present Illness Chief Complaint: Hyperglycemia and hypotension History of Present Illness: Patient is a 33 year old female with underlying history of type 1 DM with multiple admission to the hospital with DKA now presents with FS >600 and hypotension. There is a concern regarding malfunctioning insulin pump. She was found to have metabolic acidosis with elevated K. She was admitted to ICU with fluid resuscitation and insulin drip. She was also started on Levophed drip for hypotension. She complains of weakness, but denies chest pain. Troponin was elevated to 1.95. She complains of mild dyspnea, but O2 level is above 95% without oxygen. Monitor reveals sinus rhythm. She denies paroxysmal nocturnal dyspnea or orthopnea. She denies fever or chills. She denies headache. She complains of nausea and diffuse abdominal discomfort, but no vomiting or diarrhea. BP is 110 systolic at this time. - History Source History Provided By: Patient, Family Member, Medical Record Limitations to Obtaining History: Clinical Condition - Past Medical History Cardio/Vascular: Yes: Other (hypotension) Gastrointestinal: Yes: Irritable Bowel Disease (Follows Dr Mai) ...LMP: 11/24/18 Endocrine: Yes: Diabetes Mellitus, Hypothyroidism - Past Surgical History Past Surgical History: Yes: Tonsillectomy - Alcohol/Substance Use Hx Alcohol Use: No - Smoking History Smoking history: Never smoked Have you smoked in the past 12 months: No Aproximately how many cigarettes per day: 0 - Social History ADL: Independent History of Recent Travel: No Home Medications - Allergies Allergies/Adverse Reactions: Allergies Allergy/AdvReac Type Severity Reaction Status Date / Time No Known Allergies Allergy Verified 12/11/18 22:26 - Home Medications Home Medications: Ambulatory Orders Fludrocortisone Acetate 0.1 mg PO DAILY 08/10/16 Insulin Pump/Infus. Set/Meter [Accu-Chek Combo System] 1 each MC ASDIR 08/10/16 Family Disease History - Family Disease History Family Disease History: Other: Grandparent (Paternal-Colon CAdiagnosed at 60years, now 80year), Father (OA), Mother (CKD, RhA- at 54yrs), Brother ( Healthy-36) Review of Systems - Review of Systems Constitutional: reports: Weakness. denies: Chills, Fever Cardiovascular: reports: Shortness of Breath. denies: Chest Pain, Palpitations Respiratory: reports: SOB. denies: Cough, Hemoptysis, Orthopnea, PND Gastrointestinal: reports: Abdominal Pain, Nausea. denies: Diarrhea, Dysphagia , Melena, Rectal Bleeding, Vomiting Neurological: denies: Dizziness, Headache, Seizure, Syncope Vital Signs: Vital Signs Temperature 98.2 F 01/22/19 05:00 Pulse Rate 92 H 01/22/19 08:52 Respiratory Rate 12 01/22/19 09:00 Blood Pressure 98/47 L 01/22/19 08:52 O2 Sat by Pulse Oximetry (%) 100 01/22/19 09:00 Eyes: Yes: Other (legally blind) Neck: Yes: Supple Respiratory: Yes: Diminished Gastrointestinal: Yes: Normal Bowel Sounds, Soft. No: Tenderness Cardiovascular: Yes: Regular Rate and Rhythm JVD: No Carotid Bruit: No PMI: Non-Displaced Heart Sounds: Yes: S1, S2. No: Gallop Murmur: No: Systolic Murmur, Diastolic Murmur Edema: No - Other Data Labs, Other Data: CBC, BMP 01/22/19 06:30 01/22/19 08:15 INR, PTT INR 0.88 (0.83-1.09) 01/21/19 18:20 Troponin, BNP 01/21/19 01/21/19 01/22/19 18:00 22:45 02:30 Troponin I 0.18 H 1.11 H* 1.74 H* 01/22/19 06:30 Troponin I 1.95 H* Sinus rhythm, nonspecific ST abnormality Imaging - Results Chest X-ray: Report Reviewed (Unremarkable) EKG: Report Reviewed Problem List - Problems (1) DKA (diabetic ketoacidoses) Code(s): E11.10 - TYPE 2 DIABETES MELLITUS WITH KETOACIDOSIS WITHOUT COMA (2) Demand ischemia Code(s): I24.8 - OTHER FORMS OF ACUTE ISCHEMIC HEART DISEASE (3) Leukocytosis Code(s): D72.829 - ELEVATED WHITE BLOOD CELL COUNT, UNSPECIFIED (4) Anemia Code(s): D64.9 - ANEMIA, UNSPECIFIED (5) LESTER (acute kidney injury) Code(s): N17.9 - ACUTE KIDNEY FAILURE, UNSPECIFIED (6) Diabetes Code(s): E11.9 - TYPE 2 DIABETES MELLITUS WITHOUT COMPLICATIONS Qualifiers: Diabetes mellitus type: type 1 (7) Hyperglycemia Code(s): R73.9 - HYPERGLYCEMIA, UNSPECIFIED Assessment/Plan 1. DM with DKA 2. Anemia 3. Leukocytosis 4. Hypotension on pressor 5. Demand ischemia 6. Legally blind PLAN: 1. Continue current management as per Critical care team 2. Insulin drip, fluid resuscitation and monitor fluid status, FS and blood gas to check PH 3. Monitor electrolytes and 4. Pressor to keep MAP> 65. Wean as tolerated 5. Echocardiography to assess LV/RV and valvular function and to rule out pericardia effusion 6. Trend troponin which likely is due to hypotension 7. Etiology of hypotension to be evaluated. ? adrenal insufficiency ? hypothyroid state Dr. Gaspar is to resume care in AM Thank you for consultation Carroll Rivero MD
--- NOTE | 2019-01-22 10:19 | PN ---
Teaching Attending Note Name of Resident: Hafsa Pleitez ATTENDING PHYSICIAN STATEMENT I saw and evaluated the patient. I reviewed the resident's note and discussed the case with the resident. I agree with the resident's findings and plan as documented. SUBJECTIVE: Pt seen and examined in the ICU. Remains on levophed and insulin gtts. Still some nausea and abdominal pain. OBJECTIVE: Vital Signs Period Temp Pulse Resp BP Sys/Rubi Pulse Ox Last 24 Hr 92.8 F-98.7 F 63-99 12-20 55-114/37-76 93-100 Intake & Output 01/19/19 01/20/19 01/21/19 01/22/19 23:59 23:59 23:59 23:59 Intake Total 592 2160 Output Total 2200 Balance 592 -40 Weight 54.431 kg 54.431 kg Gen: NAD at rest Heart: RRR Lung: decreased breath sounds at the bases Abd: soft, nontender Ext: no edema CBC, BMP 01/22/19 06:30 01/22/19 08:15 Active Medications Chlorhexidine Gluconate (Hibiclens For Decolonization -) 1 applic TP HS JULIO CESAR Fludrocortisone Acetate (Florinef -) 0.1 mg PO DAILY JULIO CESAR Last Admin: 01/21/19 20:45 Dose: 0.1 mg Heparin Sodium (Porcine) (Heparin -) 5,000 unit SQ Q8H-IV JULIO CESAR Last Admin: 01/22/19 09:50 Dose: Not Given Insulin Human Regular 100 (units/ Sodium Chloride) 100 mls @ 10.88 mls/hr IVPB TITR JULIO CESAR; Protocol Last Admin: 01/21/19 19:20 Dose: 0.2 units/kg/hr, 10.88 mls/hr Norepinephrine Bitartrate 4, (000 mcg/ Dextrose) 500 mls @ 37.5 mls/hr IV TITR JULIO CESAR; Protocol Last Admin: 01/21/19 19:56 Dose: 5 mcg/min, 37.5 mls/hr Sodium Chloride (Normal Saline -) 1,000 mls @ 250 mls/hr IV ASDIR JULIO CESAR Last Admin: 01/21/19 21:30 Dose: 250 mls/hr Mupirocin (Bactroban Ointment (For Decolonization) -) 1 applic NS BID JULIO CESAR Stop: 01/26/19 21:59 Last Admin: 01/22/19 02:13 Dose: 1 applic Ondansetron HCl (Zofran Injection) 4 mg IVPUSH Q6H PRN PRN Reason: NAUSEA Last Admin: 01/22/19 08:54 Dose: 4 mg ASSESSMENT AND PLAN: Diabetic Ketoacidosis Shock/Hypotension r/o Adrenal Insufficiency Acute Kidney Injury +Troponins likely Demand Ischemia Anemia - continue insulin gtt until anion gap closed - IVF - monitor urine output, creatinine - monitor lytes - check cortisol level - start empiric hydrocortisone - endocrine eval - PO as tolerated - antiemetics - DVT prophylaxis - continue ICU monitoring critical care time spent in reviewing chart, evaluating patient and formulating plan 35 min
[2019-01-22] MEDS: FLUDROCORTISONE ACETATE 0.1 MG TABLET (FP) PO SCH (10:22)
[2019-01-22] MEDS: SODIUM CHLORIDE 1,000 ML IV SCH ×3 (10:23→22:18)
--- NOTE | 2019-01-22 10:29 | EKG ---
Test Reason : Blood Pressure : / mmHG Vent. Rate : 076 BPM Atrial Rate : 076 BPM P-R Int : 200 ms QRS Dur : 092 ms QT Int : 454 ms P-R-T Axes : 079 089 070 degrees QTc Int : 510 ms NORMAL SINUS RHYTHM NONSPECIFIC ST ABNORMALITY PROLONGED QT ABNORMAL ECG WHEN COMPARED WITH ECG OF 21-JAN-2019 17:39, PREVIOUS ECG HAS UNDETERMINED RHYTHM, NEEDS REVIEW QRS DURATION HAS DECREASED NONSPECIFIC T WAVE ABNORMALITY NO LONGER EVIDENT IN INFERIOR LEADS Confirmed by Kristi King ([id number]) on 01/22/2019 10:29:33 AM Referred By: Confirmed By:Kristi King
--- NOTE | 2019-01-22 10:33 | EKG ---
Test Reason : Blood Pressure : / mmHG Vent. Rate : 057 BPM Atrial Rate : 057 BPM P-R Int : 000 ms QRS Dur : 110 ms QT Int : 502 ms P-R-T Axes : 000 100 101 degrees QTc Int : 488 ms UNDETERMINED RHYTHM RIGHTWARD AXIS ST depression, consider subendocardial injury PROLONGED QT ABNORMAL ECG WHEN COMPARED WITH ECG OF 11-DEC-2018 23:18, CURRENT UNDETERMINED RHYTHM PRECLUDES RHYTHM COMPARISON, NEEDS REVIEW QUESTIONABLE CHANGE IN QRS DURATION Confirmed by Kristi King ([id number]) on 01/22/2019 10:33:01 AM Referred By: Confirmed By:Kristi King
--- NOTE | 2019-01-22 10:48 | PN ---
Physical Exam: SUBJECTIVE: Patient evaluated @ bedside, c/o nausea w/o vomiting. Denies associated abdominal pain, chest pain, shortness of breath, dysuria/hematuria. States she believes her insulin pump is malfunctioning. OBJECTIVE: Vital Signs Period Temp Pulse Resp BP Sys/Rubi Pulse Ox Last 24 Hr 92.8 F-98.7 F 63-99 12-20 55-114/37-76 93-100 General: awake, alert, drowsy but arousable CV: S1, S2, RRR Respiratory: CLTA B/L, no wheeze/crackle Abdomen: soft, non-tender, (+) bowel sounds Extremity: 2+ DP pulses, no edema Laboratory Results - last 24 hr 01/21/19 01/21/19 01/21/19 17:28 17:34 17:50 WBC RBC Hgb Hct MCV MCH MCHC RDW Plt Count MPV Absolute Neuts (auto) Total Counted Neutrophils % Neutrophils % (Manual) Band Neutrophils % Lymphocytes % Lymphocytes % (Manual) Monocytes % (Manual) Basophils % (Manual) Myelocytes % (Man) Nucleated RBC % Differential Comment Hypochromia Platelet Estimate Platelet Comment Polychromasia Macrocytosis Retic Count PT with INR INR Anticoagulation Therapy Puncture Site ABG pH ABG pCO2 at Pt Temp ABG pO2 at Pt Temp ABG HCO3 ABG O2 Sat (Measured) ABG O2 Content ABG Base Excess Terell Test VBG pH POC VBG pCO2 POC VBG pO2 VBG HCO3 VBG O2 Sat (Billie) VBG Base Excess O2 Delivery Device Oxygen Flow Rate Vent Mode Vent Rate Mechanical Rate Pressure Support Vent Sodium Potassium Chloride Carbon Dioxide Anion Gap BUN Creatinine Est GFR (CKD-EPI)AfAm Est GFR (CKD-EPI)NonAf POC Glucometer > 600 Random Glucose Hemoglobin A1c % Lactic Acid Calcium Phosphorus Magnesium Iron TIBC Iron Saturation Unsaturated IBC Ferritin Total Bilirubin AST ALT Alkaline Phosphatase Creatine Kinase Troponin I Total Protein Albumin Triglycerides Cholesterol Total LDL Cholesterol HDL Cholesterol Vitamin B12 Serum Folate TSH Free T4 Serum , Qual Negative Urine Color Urine Appearance Urine pH Ur Specific Pearson Urine Protein Urine Glucose (UA) Urine Ketones Urine Blood Urine Nitrite Urine Bilirubin Urine Urobilinogen Ur Leukocyte Esterase Urine WBC (Auto) Urine RBC (Auto) Urine Casts (Auto) U Epithel Cells (Auto) Urine Bacteria (Auto) Salicylates Opiates Screen Methadone Screen Acetaminophen Barbiturate Screen Phencyclidine Screen Ur Amphetamines Screen MDMA (Ecstasy) Screen Benzodiazepines Screen Cocaine Screen U Marijuana (THC) Screen Alcohol, Quantitative < 3.0 Acetone, Qual 01/21/19 01/21/19 01/21/19 18:00 18:00 18:00 WBC 10.6 H RBC 2.56 L Hgb 7.6 L Hct 27.1 L MCV 106.1 H D MCH 29.9 MCHC 28.2 L RDW 14.6 Plt Count 249 MPV 10.4 D Absolute Neuts (auto) 8.5 H Total Counted 100 Neutrophils % No Result Required. Neutrophils % (Manual) 71.0 Band Neutrophils % 5.0 Lymphocytes % No Result Required. Lymphocytes % (Manual) 17.0 Monocytes % (Manual) 5 Basophils % (Manual) 1.0 Myelocytes % (Man) 1 Nucleated RBC % 0 Differential Comment Man diff performed Hypochromia 1+ Platelet Estimate Adequate Platelet Comment Polychromasia 1+ Macrocytosis 2+ Retic Count PT with INR INR Anticoagulation Therapy Puncture Site ABG pH ABG pCO2 at Pt Temp ABG pO2 at Pt Temp ABG HCO3 ABG O2 Sat (Measured) ABG O2 Content ABG Base Excess Terell Test VBG pH POC VBG pCO2 POC VBG pO2 VBG HCO3 VBG O2 Sat (Billie) VBG Base Excess O2 Delivery Device Oxygen Flow Rate Vent Mode Vent Rate Mechanical Rate Pressure Support Vent Sodium 116 L* Potassium 7.1 H* Chloride 83 L Carbon Dioxide 6 L Anion Gap 27 H BUN 65.6 H Creatinine 2.6 H Est GFR (CKD-EPI)AfAm 27.00 Est GFR (CKD-EPI)NonAf 23.30 POC Glucometer Random Glucose 1380 H* Hemoglobin A1c % Lactic Acid 3.1 H* Calcium 7.5 L Phosphorus Magnesium 2.5 H Iron TIBC Iron Saturation Unsaturated IBC Ferritin Total Bilirubin 1.0 AST 86 H ALT 60 Alkaline Phosphatase 176 H Creatine Kinase 120 Troponin I 0.18 H Total Protein 5.2 L Albumin 2.7 L Triglycerides Cholesterol Total LDL Cholesterol HDL Cholesterol Vitamin B12 Serum Folate TSH 4.94 H Free T4 0.79 Serum , Qual Urine Color Urine Appearance Urine pH Ur Specific Pearson Urine Protein Urine Glucose (UA) Urine Ketones Urine Blood Urine Nitrite Urine Bilirubin Urine Urobilinogen Ur Leukocyte Esterase Urine WBC (Auto) Urine RBC (Auto) Urine Casts (Auto) U Epithel Cells (Auto) Urine Bacteria (Auto) Salicylates 5.1 Opiates Screen Methadone Screen Acetaminophen 14.6 Barbiturate Screen Phencyclidine Screen Ur Amphetamines Screen MDMA (Ecstasy) Screen Benzodiazepines Screen Cocaine Screen U Marijuana (THC) Screen Alcohol, Quantitative Acetone, Qual Positive large 3+ H 01/21/19 01/21/19 01/21/19 18:00 18:20 19:00 WBC RBC Hgb Hct MCV MCH MCHC RDW Plt Count MPV Absolute Neuts (auto) Total Counted Neutrophils % Neutrophils % (Manual) Band Neutrophils % Lymphocytes % Lymphocytes % (Manual) Monocytes % (Manual) Basophils % (Manual) Myelocytes % (Man) Nucleated RBC % Differential Comment Hypochromia Platelet Estimate Platelet Comment Polychromasia Macrocytosis Retic Count PT with INR 10.40 INR 0.88 Anticoagulation Therapy Puncture Site ABG pH ABG pCO2 at Pt Temp ABG pO2 at Pt Temp ABG HCO3 ABG O2 Sat (Measured) ABG O2 Content ABG Base Excess Terell Test VBG pH 6.93 L* POC VBG pCO2 18.7 L POC VBG pO2 87.4 H VBG HCO3 3.7 L VBG O2 Sat (Billie) 90.7 H VBG Base Excess -26.7 L O2 Delivery Device Oxygen Flow Rate Vent Mode Vent Rate Mechanical Rate Pressure Support Vent Sodium Potassium Chloride Carbon Dioxide Anion Gap BUN Creatinine Est GFR (CKD-EPI)AfAm Est GFR (CKD-EPI)NonAf POC Glucometer Random Glucose Hemoglobin A1c % Lactic Acid Calcium Phosphorus Magnesium Iron TIBC Iron Saturation Unsaturated IBC Ferritin Total Bilirubin AST ALT Alkaline Phosphatase Creatine Kinase Troponin I Total Protein Albumin Triglycerides Cholesterol Total LDL Cholesterol HDL Cholesterol Vitamin B12 Serum Folate TSH Free T4 Serum , Qual Urine Color Urine Appearance Urine pH Ur Specific Pearson Urine Protein Urine Glucose (UA) Urine Ketones Urine Blood Urine Nitrite Urine Bilirubin Urine Urobilinogen Ur Leukocyte Esterase Urine WBC (Auto) Urine RBC (Auto) Urine Casts (Auto) U Epithel Cells (Auto) Urine Bacteria (Auto) Salicylates Opiates Screen Negative Methadone Screen Negative Acetaminophen Barbiturate Screen Negative Phencyclidine Screen Negative Ur Amphetamines Screen Negative MDMA (Ecstasy) Screen Negative Benzodiazepines Screen Negative Cocaine Screen Negative U Marijuana (THC) Screen Negative Alcohol, Quantitative Acetone, Qual 01/21/19 01/21/19 01/21/19 19:00 20:05 20:30 WBC RBC Hgb Hct MCV MCH MCHC RDW Plt Count MPV Absolute Neuts (auto) Total Counted Neutrophils % Neutrophils % (Manual) Band Neutrophils % Lymphocytes % Lymphocytes % (Manual) Monocytes % (Manual) Basophils % (Manual) Myelocytes % (Man) Nucleated RBC % Differential Comment Hypochromia Platelet Estimate Platelet Comment Polychromasia Macrocytosis Retic Count PT with INR INR Anticoagulation Therapy No Result Required. Puncture Site Right radial ABG pH 6.94 L* ABG pCO2 at Pt Temp 14.0 L* ABG pO2 at Pt Temp 129 H ABG HCO3 2.8 L ABG O2 Sat (Measured) 96.7 ABG O2 Content 10.6 L ABG Base Excess -27.7 L Terell Test Positive VBG pH POC VBG pCO2 POC VBG pO2 VBG HCO3 VBG O2 Sat (Billie) VBG Base Excess O2 Delivery Device No Result Required. Oxygen Flow Rate No Result Required. Vent Mode No Result Required. Vent Rate No Result Required. Mechanical Rate No Result Required. Pressure Support Vent No Result Required. Sodium 126 L Potassium 5.5 H Chloride 95 L Carbon Dioxide 6 L Anion Gap 25 H BUN 59.8 H Creatinine 2.5 H Est GFR (CKD-EPI)AfAm 28.31 Est GFR (CKD-EPI)NonAf 24.43 POC Glucometer Random Glucose 1062 H* Hemoglobin A1c % Lactic Acid Calcium 6.9 L* Phosphorus Magnesium Iron TIBC Iron Saturation Unsaturated IBC Ferritin Total Bilirubin AST ALT Alkaline Phosphatase Creatine Kinase Troponin I Total Protein Albumin Triglycerides Cholesterol Total LDL Cholesterol HDL Cholesterol Vitamin B12 Serum Folate TSH Free T4 Serum , Qual Urine Color Yellow Urine Appearance Cloudy Urine pH 5.0 Ur Specific Pearson 1.023 Urine Protein Negative Urine Glucose (UA) 3+ H Urine Ketones Trace H Urine Blood Trace Urine Nitrite Negative Urine Bilirubin Negative Urine Urobilinogen 0.2 Ur Leukocyte Esterase Negative Urine WBC (Auto) 7.6 Urine RBC (Auto) 0.9 Urine Casts (Auto) 6.38 U Epithel Cells (Auto) 1.9 Urine Bacteria (Auto) 1.2 Salicylates Opiates Screen Methadone Screen Acetaminophen Barbiturate Screen Phencyclidine Screen Ur Amphetamines Screen MDMA (Ecstasy) Screen Benzodiazepines Screen Cocaine Screen U Marijuana (THC) Screen Alcohol, Quantitative Acetone, Qual 01/21/19 01/21/19 01/21/19 20:30 22:00 22:45 WBC RBC Hgb Hct MCV MCH MCHC RDW Plt Count MPV Absolute Neuts (auto) Total Counted Neutrophils % Neutrophils % (Manual) Band Neutrophils % Lymphocytes % Lymphocytes % (Manual) Monocytes % (Manual) Basophils % (Manual) Myelocytes % (Man) Nucleated RBC % Differential Comment Hypochromia Platelet Estimate Platelet Comment Polychromasia Macrocytosis Retic Count PT with INR INR Anticoagulation Therapy Puncture Site Right radial ABG pH 7.05 L* ABG pCO2 at Pt Temp 15.9 L ABG pO2 at Pt Temp 118 H ABG HCO3 4.2 L ABG O2 Sat (Measured) 97.1 ABG O2 Content 11.1 L ABG Base Excess -24.9 L Terell Test Positive VBG pH POC VBG pCO2 POC VBG pO2 VBG HCO3 VBG O2 Sat (Billie) VBG Base Excess O2 Delivery Device Room air Oxygen Flow Rate No Vent Mode Vent Rate Mechanical Rate Pressure Support Vent Sodium 123 L 127 L Potassium 5.8 H 5.0 Chloride 92 L 97 L Carbon Dioxide 6 L 7 L Anion Gap 25 H 24 H BUN 62.1 H 58.4 H Creatinine 2.5 H 2.4 H Est GFR (CKD-EPI)AfAm 28.31 29.75 Est GFR (CKD-EPI)NonAf 24.43 25.66 POC Glucometer Random Glucose 1187 H* 951 H* Hemoglobin A1c % Lactic Acid Calcium 7.0 L 7.0 L Phosphorus Magnesium Iron TIBC Iron Saturation Unsaturated IBC Ferritin Total Bilirubin AST ALT Alkaline Phosphatase Creatine Kinase Troponin I 1.11 H* Total Protein Albumin Triglycerides Cholesterol Total LDL Cholesterol HDL Cholesterol Vitamin B12 Serum Folate TSH Free T4 Serum , Qual Urine Color Urine Appearance Urine pH Ur Specific Pearson Urine Protein Urine Glucose (UA) Urine Ketones Urine Blood Urine Nitrite Urine Bilirubin Urine Urobilinogen Ur Leukocyte Esterase Urine WBC (Auto) Urine RBC (Auto) Urine Casts (Auto) U Epithel Cells (Auto) Urine Bacteria (Auto) Salicylates Opiates Screen Methadone Screen Acetaminophen Barbiturate Screen Phencyclidine Screen Ur Amphetamines Screen MDMA (Ecstasy) Screen Benzodiazepines Screen Cocaine Screen U Marijuana (THC) Screen Alcohol, Quantitative Acetone, Qual 01/21/19 01/21/19 01/22/19 23:22 23:36 00:20 WBC RBC Hgb Hct MCV MCH MCHC RDW Plt Count MPV Absolute Neuts (auto) Total Counted Neutrophils % Neutrophils % (Manual) Band Neutrophils % Lymphocytes % Lymphocytes % (Manual) Monocytes % (Manual) Basophils % (Manual) Myelocytes % (Man) Nucleated RBC % Differential Comment Hypochromia Platelet Estimate Platelet Comment Polychromasia Macrocytosis Retic Count PT with INR INR Anticoagulation Therapy Puncture Site ABG pH ABG pCO2 at Pt Temp ABG pO2 at Pt Temp ABG HCO3 ABG O2 Sat (Measured) ABG O2 Content ABG Base Excess Terell Test VBG pH POC VBG pCO2 POC VBG pO2 VBG HCO3 VBG O2 Sat (Billie) VBG Base Excess O2 Delivery Device Oxygen Flow Rate Vent Mode Vent Rate Mechanical Rate Pressure Support Vent Sodium 128 L Potassium 4.8 Chloride 99 Carbon Dioxide 9 L Anion Gap 20 H BUN 57.5 H Creatinine 2.4 H Est GFR (CKD-EPI)AfAm 29.75 Est GFR (CKD-EPI)NonAf 25.66 POC Glucometer > 600 Random Glucose 860 H* Hemoglobin A1c % Lactic Acid 2.1 H Calcium 7.1 L Phosphorus Magnesium Iron TIBC Iron Saturation Unsaturated IBC Ferritin Total Bilirubin AST ALT Alkaline Phosphatase Creatine Kinase Troponin I Total Protein Albumin Triglycerides Cholesterol Total LDL Cholesterol HDL Cholesterol Vitamin B12 Serum Folate TSH Free T4 Serum , Qual Urine Color Urine Appearance Urine pH Ur Specific Pearson Urine Protein Urine Glucose (UA) Urine Ketones Urine Blood Urine Nitrite Urine Bilirubin Urine Urobilinogen Ur Leukocyte Esterase Urine WBC (Auto) Urine RBC (Auto) Urine Casts (Auto) U Epithel Cells (Auto) Urine Bacteria (Auto) Salicylates Opiates Screen Methadone Screen Acetaminophen Barbiturate Screen Phencyclidine Screen Ur Amphetamines Screen MDMA (Ecstasy) Screen Benzodiazepines Screen Cocaine Screen U Marijuana (THC) Screen Alcohol, Quantitative Acetone, Qual 01/22/19 01/22/19 01/22/19 00:20 00:35 01:00 WBC 23.3 H RBC 2.68 L Hgb 7.8 L Hct 25.4 L MCV 94.5 D MCH 28.9 MCHC 30.6 L RDW 13.6 Plt Count 330 D MPV 9.8 Absolute Neuts (auto) Total Counted Neutrophils % Neutrophils % (Manual) Band Neutrophils % Lymphocytes % Lymphocytes % (Manual) Monocytes % (Manual) Basophils % (Manual) Myelocytes % (Man) Nucleated RBC % Differential Comment Hypochromia Platelet Estimate Platelet Comment Polychromasia Macrocytosis Retic Count PT with INR INR Anticoagulation Therapy Puncture Site ABG pH ABG pCO2 at Pt Temp ABG pO2 at Pt Temp ABG HCO3 ABG O2 Sat (Measured) ABG O2 Content ABG Base Excess Terell Test VBG pH POC VBG pCO2 POC VBG pO2 VBG HCO3 VBG O2 Sat (Billie) VBG Base Excess O2 Delivery Device Oxygen Flow Rate Vent Mode Vent Rate Mechanical Rate Pressure Support Vent Sodium Potassium Chloride Carbon Dioxide Anion Gap BUN Creatinine Est GFR (CKD-EPI)AfAm Est GFR (CKD-EPI)NonAf POC Glucometer > 600 Random Glucose Hemoglobin A1c % Lactic Acid Calcium Phosphorus Magnesium Iron TIBC Iron Saturation Unsaturated IBC Ferritin Total Bilirubin AST ALT Alkaline Phosphatase Creatine Kinase Troponin I Total Protein Albumin Triglycerides Cholesterol Total LDL Cholesterol HDL Cholesterol Vitamin B12 Serum Folate TSH Free T4 Serum , Qual Urine Color Yellow Urine Appearance Clear Urine pH 5.0 Ur Specific Pearson 1.021 Urine Protein Trace Urine Glucose (UA) 3+ H Urine Ketones 1+ H Urine Blood Trace Urine Nitrite Negative Urine Bilirubin Negative Urine Urobilinogen 0.2 Ur Leukocyte Esterase Negative Urine WBC (Auto) 3 Urine RBC (Auto) 10 Urine Casts (Auto) 3 U Epithel Cells (Auto) 4 Urine Bacteria (Auto) 30 Salicylates Opiates Screen Methadone Screen Acetaminophen Barbiturate Screen Phencyclidine Screen Ur Amphetamines Screen MDMA (Ecstasy) Screen Benzodiazepines Screen Cocaine Screen U Marijuana (THC) Screen Alcohol, Quantitative Acetone, Qual 01/22/19 01/22/19 01/22/19 01:28 02:20 02:30 WBC RBC Hgb Hct MCV MCH MCHC RDW Plt Count MPV Absolute Neuts (auto) Total Counted Neutrophils % Neutrophils % (Manual) Band Neutrophils % Lymphocytes % Lymphocytes % (Manual) Monocytes % (Manual) Basophils % (Manual) Myelocytes % (Man) Nucleated RBC % Differential Comment Hypochromia Platelet Estimate Platelet Comment Polychromasia Macrocytosis Retic Count PT with INR INR Anticoagulation Therapy No Result Required. Puncture Site Right radial ABG pH 7.18 L* ABG pCO2 at Pt Temp 27.8 L ABG pO2 at Pt Temp 56.3 L ABG HCO3 10.0 L ABG O2 Sat (Measured) 86.5 L ABG O2 Content 8.3 L* ABG Base Excess -16.7 L Terell Test Positive VBG pH POC VBG pCO2 POC VBG pO2 VBG HCO3 VBG O2 Sat (Billie) VBG Base Excess O2 Delivery Device Room air Oxygen Flow Rate 21% Vent Mode No Result Required. Vent Rate No Result Required. Mechanical Rate No Result Required. Pressure Support Vent No Result Required. Sodium 132 L Potassium 4.7 Chloride 102 Carbon Dioxide 11 L Anion Gap 19 H BUN 55.8 H Creatinine 2.5 H Est GFR (CKD-EPI)AfAm 28.31 Est GFR (CKD-EPI)NonAf 24.43 POC Glucometer > 600 Random Glucose 744 H* Hemoglobin A1c % Lactic Acid Calcium 7.1 L Phosphorus Magnesium Iron TIBC Iron Saturation Unsaturated IBC Ferritin Total Bilirubin AST ALT Alkaline Phosphatase Creatine Kinase Troponin I 1.74 H* Total Protein Albumin Triglycerides Cholesterol Total LDL Cholesterol HDL Cholesterol Vitamin B12 Serum Folate TSH Free T4 Serum , Qual Urine Color Urine Appearance Urine pH Ur Specific Pearson Urine Protein Urine Glucose (UA) Urine Ketones Urine Blood Urine Nitrite Urine Bilirubin Urine Urobilinogen Ur Leukocyte Esterase Urine WBC (Auto) Urine RBC (Auto) Urine Casts (Auto) U Epithel Cells (Auto) Urine Bacteria (Auto) Salicylates Opiates Screen Methadone Screen Acetaminophen Barbiturate Screen Phencyclidine Screen Ur Amphetamines Screen MDMA (Ecstasy) Screen Benzodiazepines Screen Cocaine Screen U Marijuana (THC) Screen Alcohol, Quantitative Acetone, Qual 01/22/19 01/22/19 01/22/19 02:41 03:09 04:20 WBC RBC Hgb Hct MCV MCH MCHC RDW Plt Count MPV Absolute Neuts (auto) Total Counted Neutrophils % Neutrophils % (Manual) Band Neutrophils % Lymphocytes % Lymphocytes % (Manual) Monocytes % (Manual) Basophils % (Manual) Myelocytes % (Man) Nucleated RBC % Differential Comment Hypochromia Platelet Estimate Platelet Comment Polychromasia Macrocytosis Retic Count PT with INR INR Anticoagulation Therapy Puncture Site ABG pH ABG pCO2 at Pt Temp ABG pO2 at Pt Temp ABG HCO3 ABG O2 Sat (Measured) ABG O2 Content ABG Base Excess Terell Test VBG pH POC VBG pCO2 POC VBG pO2 VBG HCO3 VBG O2 Sat (Billie) VBG Base Excess O2 Delivery Device Oxygen Flow Rate Vent Mode Vent Rate Mechanical Rate Pressure Support Vent Sodium 133 L Potassium 4.3 Chloride 104 Carbon Dioxide 14 L Anion Gap 14 BUN 54.7 H Creatinine 2.5 H Est GFR (CKD-EPI)AfAm 28.31 Est GFR (CKD-EPI)NonAf 24.43 POC Glucometer 556 > 600 Random Glucose 645 H* Hemoglobin A1c % Lactic Acid Calcium 7.3 L Phosphorus Magnesium Iron TIBC Iron Saturation Unsaturated IBC Ferritin Total Bilirubin AST ALT Alkaline Phosphatase Creatine Kinase Troponin I Total Protein Albumin Triglycerides Cholesterol Total LDL Cholesterol HDL Cholesterol Vitamin B12 Serum Folate TSH Free T4 Serum , Qual Urine Color Urine Appearance Urine pH Ur Specific Pearson Urine Protein Urine Glucose (UA) Urine Ketones Urine Blood Urine Nitrite Urine Bilirubin Urine Urobilinogen Ur Leukocyte Esterase Urine WBC (Auto) Urine RBC (Auto) Urine Casts (Auto) U Epithel Cells (Auto) Urine Bacteria (Auto) Salicylates Opiates Screen Methadone Screen Acetaminophen Barbiturate Screen Phencyclidine Screen Ur Amphetamines Screen MDMA (Ecstasy) Screen Benzodiazepines Screen Cocaine Screen U Marijuana (THC) Screen Alcohol, Quantitative Acetone, Qual 01/22/19 01/22/19 01/22/19 04:40 05:42 06:00 WBC RBC Hgb Hct MCV MCH MCHC RDW Plt Count MPV Absolute Neuts (auto) Total Counted Neutrophils % Neutrophils % (Manual) Band Neutrophils % Lymphocytes % Lymphocytes % (Manual) Monocytes % (Manual) Basophils % (Manual) Myelocytes % (Man) Nucleated RBC % Differential Comment Hypochromia Platelet Estimate Platelet Comment Polychromasia Macrocytosis Retic Count 1.79 H PT with INR INR Anticoagulation Therapy Puncture Site Right radial ABG pH 7.24 L ABG pCO2 at Pt Temp 32.9 L ABG pO2 at Pt Temp 74.3 L ABG HCO3 13.5 L ABG O2 Sat (Measured) 94.2 L ABG O2 Content 10.4 L ABG Base Excess -12.5 L Terell Test Positive VBG pH POC VBG pCO2 POC VBG pO2 VBG HCO3 VBG O2 Sat (Billie) VBG Base Excess O2 Delivery Device Room air Oxygen Flow Rate 21% Vent Mode Vent Rate Mechanical Rate Pressure Support Vent Sodium Potassium Chloride Carbon Dioxide Anion Gap BUN Creatinine Est GFR (CKD-EPI)AfAm Est GFR (CKD-EPI)NonAf POC Glucometer 557 Random Glucose Hemoglobin A1c % Lactic Acid Calcium Phosphorus Magnesium Iron TIBC Iron Saturation Unsaturated IBC Ferritin Total Bilirubin AST ALT Alkaline Phosphatase Creatine Kinase Troponin I Total Protein Albumin Triglycerides Cholesterol Total LDL Cholesterol HDL Cholesterol Vitamin B12 Serum Folate TSH Free T4 Serum , Qual Urine Color Urine Appearance Urine pH Ur Specific Pearson Urine Protein Urine Glucose (UA) Urine Ketones Urine Blood Urine Nitrite Urine Bilirubin Urine Urobilinogen Ur Leukocyte Esterase Urine WBC (Auto) Urine RBC (Auto) Urine Casts (Auto) U Epithel Cells (Auto) Urine Bacteria (Auto) Salicylates Opiates Screen Methadone Screen Acetaminophen Barbiturate Screen Phencyclidine Screen Ur Amphetamines Screen MDMA (Ecstasy) Screen Benzodiazepines Screen Cocaine Screen U Marijuana (THC) Screen Alcohol, Quantitative Acetone, Qual 01/22/19 01/22/19 01/22/19 06:29 06:30 06:30 WBC 18.5 H RBC 2.66 L Hgb 7.7 L Hct 23.7 L MCV 89.3 MCH 28.8 MCHC 32.3 RDW 13.3 Plt Count 305 MPV 9.5 Absolute Neuts (auto) Total Counted Neutrophils % Neutrophils % (Manual) Band Neutrophils % Lymphocytes % Lymphocytes % (Manual) Monocytes % (Manual) Basophils % (Manual) Myelocytes % (Man) Nucleated RBC % Differential Comment Hypochromia Platelet Estimate Platelet Comment Polychromasia Macrocytosis Retic Count PT with INR INR Anticoagulation Therapy Puncture Site ABG pH ABG pCO2 at Pt Temp ABG pO2 at Pt Temp ABG HCO3 ABG O2 Sat (Measured) ABG O2 Content ABG Base Excess Terell Test VBG pH POC VBG pCO2 POC VBG pO2 VBG HCO3 VBG O2 Sat (Billie) VBG Base Excess O2 Delivery Device Oxygen Flow Rate Vent Mode Vent Rate Mechanical Rate Pressure Support Vent Sodium Potassium Chloride Carbon Dioxide Anion Gap BUN Creatinine Est GFR (CKD-EPI)AfAm Est GFR (CKD-EPI)NonAf POC Glucometer 485 Random Glucose Hemoglobin A1c % Lactic Acid Calcium Phosphorus 4.1 Magnesium 1.9 Iron 57 TIBC 245 L Iron Saturation 23 Unsaturated IBC 188 L Ferritin 107.8 Total Bilirubin AST ALT Alkaline Phosphatase Creatine Kinase Troponin I Total Protein Albumin Triglycerides Cholesterol Total LDL Cholesterol HDL Cholesterol Vitamin B12 > 6000 H Serum Folate 68 H TSH Free T4 Serum , Qual Urine Color Urine Appearance Urine pH Ur Specific Pearson Urine Protein Urine Glucose (UA) Urine Ketones Urine Blood Urine Nitrite Urine Bilirubin Urine Urobilinogen Ur Leukocyte Esterase Urine WBC (Auto) Urine RBC (Auto) Urine Casts (Auto) U Epithel Cells (Auto) Urine Bacteria (Auto) Salicylates Opiates Screen Methadone Screen Acetaminophen Barbiturate Screen Phencyclidine Screen Ur Amphetamines Screen MDMA (Ecstasy) Screen Benzodiazepines Screen Cocaine Screen U Marijuana (THC) Screen Alcohol, Quantitative Acetone, Qual 01/22/19 01/22/19 01/22/19 06:30 06:30 06:30 WBC RBC Hgb Hct MCV MCH MCHC RDW Plt Count MPV Absolute Neuts (auto) Total Counted Neutrophils % Neutrophils % (Manual) Band Neutrophils % Lymphocytes % Lymphocytes % (Manual) Monocytes % (Manual) Basophils % (Manual) Myelocytes % (Man) Nucleated RBC % Differential Comment Hypochromia Platelet Estimate Platelet Comment Polychromasia Macrocytosis Retic Count PT with INR INR Anticoagulation Therapy Puncture Site ABG pH ABG pCO2 at Pt Temp ABG pO2 at Pt Temp ABG HCO3 ABG O2 Sat (Measured) ABG O2 Content ABG Base Excess Terell Test VBG pH POC VBG pCO2 POC VBG pO2 VBG HCO3 VBG O2 Sat (Billie) VBG Base Excess O2 Delivery Device Oxygen Flow Rate Vent Mode Vent Rate Mechanical Rate Pressure Support Vent Sodium 136 Potassium 4.1 Chloride 107 Carbon Dioxide 16 L Anion Gap 14 BUN 50.3 H Creatinine 2.4 H Est GFR (CKD-EPI)AfAm 29.75 Est GFR (CKD-EPI)NonAf 25.66 POC Glucometer Random Glucose 511 H* Hemoglobin A1c % 12.6 H Lactic Acid Calcium 7.2 L Phosphorus Magnesium Iron TIBC Iron Saturation Unsaturated IBC Ferritin Total Bilirubin AST ALT Alkaline Phosphatase Creatine Kinase Troponin I 1.95 H* Total Protein Albumin Triglycerides 118 Cholesterol 90 Total LDL Cholesterol 32 HDL Cholesterol 50 Vitamin B12 Serum Folate TSH Free T4 Serum , Qual Urine Color Urine Appearance Urine pH Ur Specific Pearson Urine Protein Urine Glucose (UA) Urine Ketones Urine Blood Urine Nitrite Urine Bilirubin Urine Urobilinogen Ur Leukocyte Esterase Urine WBC (Auto) Urine RBC (Auto) Urine Casts (Auto) U Epithel Cells (Auto) Urine Bacteria (Auto) Salicylates Opiates Screen Methadone Screen Acetaminophen Barbiturate Screen Phencyclidine Screen Ur Amphetamines Screen MDMA (Ecstasy) Screen Benzodiazepines Screen Cocaine Screen U Marijuana (THC) Screen Alcohol, Quantitative Acetone, Qual 01/22/19 01/22/19 01/22/19 08:10 08:15 09:05 WBC RBC Hgb Hct MCV MCH MCHC RDW Plt Count MPV Absolute Neuts (auto) Total Counted Neutrophils % Neutrophils % (Manual) Band Neutrophils % Lymphocytes % Lymphocytes % (Manual) Monocytes % (Manual) Basophils % (Manual) Myelocytes % (Man) Nucleated RBC % Differential Comment Hypochromia Platelet Estimate Platelet Comment Polychromasia Macrocytosis Retic Count PT with INR INR Anticoagulation Therapy Puncture Site ABG pH ABG pCO2 at Pt Temp ABG pO2 at Pt Temp ABG HCO3 ABG O2 Sat (Measured) ABG O2 Content ABG Base Excess Terell Test VBG pH POC VBG pCO2 POC VBG pO2 VBG HCO3 VBG O2 Sat (Billie) VBG Base Excess O2 Delivery Device Oxygen Flow Rate Vent Mode Vent Rate Mechanical Rate Pressure Support Vent Sodium 137 Potassium 3.8 Chloride 108 H Carbon Dioxide 17 L Anion Gap 12 BUN 47.8 H Creatinine 2.2 H Est GFR (CKD-EPI)AfAm 33.05 Est GFR (CKD-EPI)NonAf 28.51 POC Glucometer 406 387 Random Glucose 415 H* Hemoglobin A1c % Lactic Acid Calcium 7.4 L Phosphorus Magnesium Iron TIBC Iron Saturation Unsaturated IBC Ferritin Total Bilirubin AST ALT Alkaline Phosphatase Creatine Kinase Troponin I Total Protein Albumin Triglycerides Cholesterol Total LDL Cholesterol HDL Cholesterol Vitamin B12 Serum Folate TSH Free T4 Serum , Qual Urine Color Urine Appearance Urine pH Ur Specific Pearson Urine Protein Urine Glucose (UA) Urine Ketones Urine Blood Urine Nitrite Urine Bilirubin Urine Urobilinogen Ur Leukocyte Esterase Urine WBC (Auto) Urine RBC (Auto) Urine Casts (Auto) U Epithel Cells (Auto) Urine Bacteria (Auto) Salicylates Opiates Screen Methadone Screen Acetaminophen Barbiturate Screen Phencyclidine Screen Ur Amphetamines Screen MDMA (Ecstasy) Screen Benzodiazepines Screen Cocaine Screen U Marijuana (THC) Screen Alcohol, Quantitative Acetone, Qual Active Medications Generic Name Dose Route Start Last Admin Trade Name Mabel PRN Reason Stop Dose Admin Chlorhexidine Gluconate 1 applic 01/22/19 22:00 Hibiclens For Decolonization - TP HS JULIO CESAR Fludrocortisone Acetate 0.1 mg 01/21/19 19:00 01/22/19 10:22 Florinef - PO 0.1 mg DAILY JULIO CESAR Administration Heparin Sodium (Porcine) 5,000 unit 01/22/19 02:00 01/22/19 09:50 Heparin - SQ Not Given Q8H-IV JULIO CESAR Insulin Human Regular 100 100 mls @ 10.88 mls/hr 01/21/19 19:30 01/21/19 19: 20 units/ Sodium Chloride IVPB 0.2 units/kg/hr TITR JULIO CESAR 10.88 mls/hr Administration Protocol 0.2 UNITS/KG/HR Norepinephrine Bitartrate 4, 500 mls @ 37.5 mls/hr 01/21/19 19:45 01/22/19 10 :23 000 mcg/ Dextrose IV 5 mcg/min TITR JULIO CESAR 37.5 mls/hr Titration Protocol 5 MCG/MIN Sodium Chloride 1,000 mls @ 250 mls/hr 01/21/19 20:38 01/22/19 10:23 Normal Saline - IV 250 mls/hr ASDIR JULIO CESAR Administration Mupirocin 1 applic 01/21/19 22:00 01/22/19 02:13 Bactroban Ointment (For Decolonization) - NS 01/26/19 21:59 1 applic BID JULIO CESAR Administration Ondansetron HCl 8 mg 01/22/19 10:19 Zofran Injection IVPUSH Q6H PRN NAUSEA ASSESSMENT/PLAN: 33 year old female with a history of type I diabetes that was diagnosed at age 15 and prior episodes of DKA presented to the ED for altered mental status and admitted for the treatment of diabetic ketoacidosis #Diabetic Ketoacidosis #Anion gap metabolic acidosis #Altered Mental Status #Hypovolemic Shock #Pseudohyponatremia #Acute Kidney Injury #Troponinemia #Hypothyroidism Endocrine - Resolved DKA: Anion gap closed (17); pH 7.14, however patient remains Hyperglycemic (511) -give bolus dose insulin and maintain on drip pending PO intake -monitor fingerstick glucose every hour and adjust the insulin drip accordingly -Dr. Mayers consulted #Hypothyroidism: TSH was 4.94 with a Free T4 of 0.79; patient is non-compliant with this medication at home -ED gave high dose levothyroxine -start home dose of Levothyroxine (50 mcg) -continue Flucortisone (0.1 mg) -Patient's primary blue line trimmer is Dr. Toshia Galeano does not have privileges at [facility]; consult placed to Dr. Mayers #Questionable Adrenal Insufficiency: patient has been on fludrocortisone and has multiple autoimmune diseases; could be a component of [place] disease -will consult Dr. Mayers for evaluation of multiple endocrine abnormalities and insulin pump management Neurological #Altered Mental Status: RESOLVED -continue to monitor mental status for signs of deterioration or lethargy Cardiovascular #Hypovolemic Shock: RESOLVED - initially unresponsive to fluid resuscitation after pressure bagging 3L of normal saline through peripheral IV lines; could also be a component of severe acidemia influencing cardiac output; Levophed Drip initiated, however MAPS > 65 , will shut off drip -continue to give fluids through peripheral IV - Maintain MAPS above 65 #Troponinemia: could be demand related in the setting of diabetic ketoacidosis and -EKG revealed mild ST segment depressions in leads V4-V6 and a prolonged Qtc of 488; this likely is also due to demand ischemia and not overt plaque rupture; also flattened P waves are appreciated which could be a result of the hyperkalemia. - Troponin trended overnight, peaked @ 1.95; now 1.77 - Will continue to trend for 24 hours Renal #Acute Kidney Injury: RESOLVING this is likely related to hypovolemia from osmotic diuresis due to a glucose level of 1350 -resolving with Cr 2.2, BUN 47.8, trending downward from initial Cr 2.6, BUN 65.6 -aggressively hydrate patient #Anion gap metabolic acidosis: RESOLVED #Hyperkalemia: RESOLVED - initial potassium was 7.1; s/p insulin bolus and insulin ggt + aggressive fluid hydration -only sign of EKG changes associated with hyperkalemia are flattened P waves -K+ 4.1 this a.m., will start K+ with IV fluids #Pseudohyponatremia: RESOLVED due to a glucose of 1380, corrected sodium is 136- 147 based on two sources on how to correct the value Heme/Onc #Macrocytic Anemia: hemoglobin on admission was 7.6 with an MCV of 106.1; unclear etiology at present time - likely 2/2 to hypothroidism vs. Pernicious Anemia, given elevated Folate and B12 levels #Leukocytosis: IMPROVING likely reactive from stress/DKA Pulmonary -chest xray appears clear -no other pulmonary pathology Gastrointestinal -no active issues FEN -NPO until switching to sliding scale Lines -right sided femoral catheter placed 01/21/19 Prophylaxis -heparin prophylaxis Disposition - Patient stable for transfer to Med/Surg Visit type - Emergency Visit Emergency Visit: No - New Patient This patient is new to me today: Yes Date on this admission: 01/22/19 - Critical Care Critical Care patient: Yes Total Critical Care Time (in minutes): 30 Critical Care Statement: The care of this patient involved high complexity decision making to prevent further life threatening deterioration of the patient 's condition and/or to evaluate & treat vital organ system(s) failure or risk of failure. ATTENDING PHYSICIAN STATEMENT I saw and evaluated the patient. I reviewed the resident's note and discussed the case with the resident. I agree with the resident's findings and plan as documented. SUBJECTIVE: OBJECTIVE: ASSESSMENT AND PLAN:
[2019-01-22] MEDS ORDERED: PT OWN MED DRAWER 7, Y5N ONE (13:24)
[2019-01-22] MEDS: INSULIN SLIDING SCALE (NOVOLOG) 1 VIAL SQ SCH (15:40)
[2019-01-22] MEDS ORDERED: NOREPINEPHRINE BITARTRATE 4,000 MCG in SODIUM CHLORIDE 496 ML IV SCH (16:00)
--- NOTE | 2019-01-22 16:29 | PN ---
Progress Note (short form) - Note Progress Note: SUBJECTIVE: Nausea improved somewhat. No vomiting. No fever/chills. No cough/ sputum/. No dysuria/hematuria. 1 episode of diarrhea yesterday - non bloody, no associated abdominal pain. OBJECTIVE: Afebrile, Hypotensive requiring Levophed. AAO x 3. Last Vital Signs Temp Pulse Resp BP Pulse Ox 98.1 F 95 H 10 100/52 L 100 01/22/19 14:00 01/22/19 16:00 01/22/19 16:00 01/22/19 16:00 01/22/19 09:00 HEENT - Atramatic, Normocephalic. Heart - S1, S2, RRR Lungs - clear to auscultation Abdomen - Soft,mild epigastric tenderness, bowel sounds normal Extremities - no edema, no calf tenderness. Neuro - AAO x 3. Tone/Power normal all 4 extremities. Laboratory Results - last 24 hr 01/21/19 01/21/19 01/21/19 17:28 17:34 17:50 WBC RBC Hgb Hct MCV MCH MCHC RDW Plt Count MPV Absolute Neuts (auto) Total Counted Neutrophils % Neutrophils % (Manual) Band Neutrophils % Lymphocytes % Lymphocytes % (Manual) Monocytes % (Manual) Basophils % (Manual) Myelocytes % (Man) Nucleated RBC % Differential Comment Hypochromia Platelet Estimate Platelet Comment Polychromasia Macrocytosis Retic Count PT with INR INR Anticoagulation Therapy Puncture Site ABG pH ABG pCO2 at Pt Temp ABG pO2 at Pt Temp ABG HCO3 ABG O2 Sat (Measured) ABG O2 Content ABG Base Excess Terell Test VBG pH POC VBG pCO2 POC VBG pO2 VBG HCO3 VBG O2 Sat (Billie) VBG Base Excess O2 Delivery Device Oxygen Flow Rate Vent Mode Vent Rate Mechanical Rate Pressure Support Vent Sodium Potassium Chloride Carbon Dioxide Anion Gap BUN Creatinine Est GFR (CKD-EPI)AfAm Est GFR (CKD-EPI)NonAf POC Glucometer > 600 Random Glucose Hemoglobin A1c % Lactic Acid Calcium Phosphorus Magnesium Iron TIBC Iron Saturation Unsaturated IBC Ferritin Total Bilirubin AST ALT Alkaline Phosphatase Creatine Kinase Creatine Kinase Index CK-MB (CK-2) Troponin I Total Protein Albumin Triglycerides Cholesterol Total LDL Cholesterol HDL Cholesterol Vitamin B12 Serum Folate TSH Free T4 Serum , Qual Negative Urine Color Urine Appearance Urine pH Ur Specific Circle Urine Protein Urine Glucose (UA) Urine Ketones Urine Blood Urine Nitrite Urine Bilirubin Urine Urobilinogen Ur Leukocyte Esterase Urine WBC (Auto) Urine RBC (Auto) Urine Casts (Auto) U Epithel Cells (Auto) Urine Bacteria (Auto) Ur Random Sodium Ur Random Potassium Ur Random Chloride Salicylates Opiates Screen Methadone Screen Acetaminophen Barbiturate Screen Phencyclidine Screen Ur Amphetamines Screen MDMA (Ecstasy) Screen Benzodiazepines Screen Cocaine Screen U Marijuana (THC) Screen Alcohol, Quantitative < 3.0 Acetone, Qual 01/21/19 01/21/19 01/21/19 18:00 18:00 18:00 WBC 10.6 H RBC 2.56 L Hgb 7.6 L Hct 27.1 L MCV 106.1 H D MCH 29.9 MCHC 28.2 L RDW 14.6 Plt Count 249 MPV 10.4 D Absolute Neuts (auto) 8.5 H Total Counted 100 Neutrophils % No Result Required. Neutrophils % (Manual) 71.0 Band Neutrophils % 5.0 Lymphocytes % No Result Required. Lymphocytes % (Manual) 17.0 Monocytes % (Manual) 5 Basophils % (Manual) 1.0 Myelocytes % (Man) 1 Nucleated RBC % 0 Differential Comment Man diff performed Hypochromia 1+ Platelet Estimate Adequate Platelet Comment Polychromasia 1+ Macrocytosis 2+ Retic Count PT with INR INR Anticoagulation Therapy Puncture Site ABG pH ABG pCO2 at Pt Temp ABG pO2 at Pt Temp ABG HCO3 ABG O2 Sat (Measured) ABG O2 Content ABG Base Excess Terell Test VBG pH POC VBG pCO2 POC VBG pO2 VBG HCO3 VBG O2 Sat (Billie) VBG Base Excess O2 Delivery Device Oxygen Flow Rate Vent Mode Vent Rate Mechanical Rate Pressure Support Vent Sodium 116 L* Potassium 7.1 H* Chloride 83 L Carbon Dioxide 6 L Anion Gap 27 H BUN 65.6 H Creatinine 2.6 H Est GFR (CKD-EPI)AfAm 27.00 Est GFR (CKD-EPI)NonAf 23.30 POC Glucometer Random Glucose 1380 H* Hemoglobin A1c % Lactic Acid 3.1 H* Calcium 7.5 L Phosphorus Magnesium 2.5 H Iron TIBC Iron Saturation Unsaturated IBC Ferritin Total Bilirubin 1.0 AST 86 H ALT 60 Alkaline Phosphatase 176 H Creatine Kinase 120 Creatine Kinase Index CK-MB (CK-2) Troponin I 0.18 H Total Protein 5.2 L Albumin 2.7 L Triglycerides Cholesterol Total LDL Cholesterol HDL Cholesterol Vitamin B12 Serum Folate TSH 4.94 H Free T4 0.79 Serum , Qual Urine Color Urine Appearance Urine pH Ur Specific Circle Urine Protein Urine Glucose (UA) Urine Ketones Urine Blood Urine Nitrite Urine Bilirubin Urine Urobilinogen Ur Leukocyte Esterase Urine WBC (Auto) Urine RBC (Auto) Urine Casts (Auto) U Epithel Cells (Auto) Urine Bacteria (Auto) Ur Random Sodium Ur Random Potassium Ur Random Chloride Salicylates 5.1 Opiates Screen Methadone Screen Acetaminophen 14.6 Barbiturate Screen Phencyclidine Screen Ur Amphetamines Screen MDMA (Ecstasy) Screen Benzodiazepines Screen Cocaine Screen U Marijuana (THC) Screen Alcohol, Quantitative Acetone, Qual Positive large 3+ H 01/21/19 01/21/19 01/21/19 18:00 18:20 19:00 WBC RBC Hgb Hct MCV MCH MCHC RDW Plt Count MPV Absolute Neuts (auto) Total Counted Neutrophils % Neutrophils % (Manual) Band Neutrophils % Lymphocytes % Lymphocytes % (Manual) Monocytes % (Manual) Basophils % (Manual) Myelocytes % (Man) Nucleated RBC % Differential Comment Hypochromia Platelet Estimate Platelet Comment Polychromasia Macrocytosis Retic Count PT with INR 10.40 INR 0.88 Anticoagulation Therapy Puncture Site ABG pH ABG pCO2 at Pt Temp ABG pO2 at Pt Temp ABG HCO3 ABG O2 Sat (Measured) ABG O2 Content ABG Base Excess Terell Test VBG pH 6.93 L* POC VBG pCO2 18.7 L POC VBG pO2 87.4 H VBG HCO3 3.7 L VBG O2 Sat (Billie) 90.7 H VBG Base Excess -26.7 L O2 Delivery Device Oxygen Flow Rate Vent Mode Vent Rate Mechanical Rate Pressure Support Vent Sodium Potassium Chloride Carbon Dioxide Anion Gap BUN Creatinine Est GFR (CKD-EPI)AfAm Est GFR (CKD-EPI)NonAf POC Glucometer Random Glucose Hemoglobin A1c % Lactic Acid Calcium Phosphorus Magnesium Iron TIBC Iron Saturation Unsaturated IBC Ferritin Total Bilirubin AST ALT Alkaline Phosphatase Creatine Kinase Creatine Kinase Index CK-MB (CK-2) Troponin I Total Protein Albumin Triglycerides Cholesterol Total LDL Cholesterol HDL Cholesterol Vitamin B12 Serum Folate TSH Free T4 Serum , Qual Urine Color Urine Appearance Urine pH Ur Specific Circle Urine Protein Urine Glucose (UA) Urine Ketones Urine Blood Urine Nitrite Urine Bilirubin Urine Urobilinogen Ur Leukocyte Esterase Urine WBC (Auto) Urine RBC (Auto) Urine Casts (Auto) U Epithel Cells (Auto) Urine Bacteria (Auto) Ur Random Sodium Ur Random Potassium Ur Random Chloride Salicylates Opiates Screen Negative Methadone Screen Negative Acetaminophen Barbiturate Screen Negative Phencyclidine Screen Negative Ur Amphetamines Screen Negative MDMA (Ecstasy) Screen Negative Benzodiazepines Screen Negative Cocaine Screen Negative U Marijuana (THC) Screen Negative Alcohol, Quantitative Acetone, Qual 01/21/19 01/21/19 01/21/19 19:00 20:05 20:30 WBC RBC Hgb Hct MCV MCH MCHC RDW Plt Count MPV Absolute Neuts (auto) Total Counted Neutrophils % Neutrophils % (Manual) Band Neutrophils % Lymphocytes % Lymphocytes % (Manual) Monocytes % (Manual) Basophils % (Manual) Myelocytes % (Man) Nucleated RBC % Differential Comment Hypochromia Platelet Estimate Platelet Comment Polychromasia Macrocytosis Retic Count PT with INR INR Anticoagulation Therapy No Result Required. Puncture Site Right radial ABG pH 6.94 L* ABG pCO2 at Pt Temp 14.0 L* ABG pO2 at Pt Temp 129 H ABG HCO3 2.8 L ABG O2 Sat (Measured) 96.7 ABG O2 Content 10.6 L ABG Base Excess -27.7 L Terell Test Positive VBG pH POC VBG pCO2 POC VBG pO2 VBG HCO3 VBG O2 Sat (Billie) VBG Base Excess O2 Delivery Device No Result Required. Oxygen Flow Rate No Result Required. Vent Mode No Result Required. Vent Rate No Result Required. Mechanical Rate No Result Required. Pressure Support Vent No Result Required. Sodium 126 L Potassium 5.5 H Chloride 95 L Carbon Dioxide 6 L Anion Gap 25 H BUN 59.8 H Creatinine 2.5 H Est GFR (CKD-EPI)AfAm 28.31 Est GFR (CKD-EPI)NonAf 24.43 POC Glucometer Random Glucose 1062 H* Hemoglobin A1c % Lactic Acid Calcium 6.9 L* Phosphorus Magnesium Iron TIBC Iron Saturation Unsaturated IBC Ferritin Total Bilirubin AST ALT Alkaline Phosphatase Creatine Kinase Creatine Kinase Index CK-MB (CK-2) Troponin I Total Protein Albumin Triglycerides Cholesterol Total LDL Cholesterol HDL Cholesterol Vitamin B12 Serum Folate TSH Free T4 Serum , Qual Urine Color Yellow Urine Appearance Cloudy Urine pH 5.[address] 1.023 Urine Protein Negative Urine Glucose (UA) 3+ H Urine Ketones Trace H Urine Blood Trace Urine Nitrite Negative Urine Bilirubin Negative Urine Urobilinogen 0.2 Ur Leukocyte Esterase Negative Urine WBC (Auto) 7.6 Urine RBC (Auto) 0.9 Urine Casts (Auto) 6.38 U Epithel Cells (Auto) 1.9 Urine Bacteria (Auto) 1.2 Ur Random Sodium Ur Random Potassium Ur Random Chloride Salicylates Opiates Screen Methadone Screen Acetaminophen Barbiturate Screen Phencyclidine Screen Ur Amphetamines Screen MDMA (Ecstasy) Screen Benzodiazepines Screen Cocaine Screen U Marijuana (THC) Screen Alcohol, Quantitative Acetone, Qual 01/21/19 01/21/19 01/21/19 20:30 22:00 22:45 WBC RBC Hgb Hct MCV MCH MCHC RDW Plt Count MPV Absolute Neuts (auto) Total Counted Neutrophils % Neutrophils % (Manual) Band Neutrophils % Lymphocytes % Lymphocytes % (Manual) Monocytes % (Manual) Basophils % (Manual) Myelocytes % (Man) Nucleated RBC % Differential Comment Hypochromia Platelet Estimate Platelet Comment Polychromasia Macrocytosis Retic Count PT with INR INR Anticoagulation Therapy Puncture Site Right radial ABG pH 7.05 L* ABG pCO2 at Pt Temp 15.9 L ABG pO2 at Pt Temp 118 H ABG HCO3 4.2 L ABG O2 Sat (Measured) 97.1 ABG O2 Content 11.1 L ABG Base Excess -24.9 L Terell Test Positive VBG pH POC VBG pCO2 POC VBG pO2 VBG HCO3 VBG O2 Sat (Billie) VBG Base Excess O2 Delivery Device Room air Oxygen Flow Rate No Vent Mode Vent Rate Mechanical Rate Pressure Support Vent Sodium 123 L 127 L Potassium 5.8 H 5.0 Chloride 92 L 97 L Carbon Dioxide 6 L 7 L Anion Gap 25 H 24 H BUN 62.1 H 58.4 H Creatinine 2.5 H 2.4 H Est GFR (CKD-EPI)AfAm 28.31 29.75 Est GFR (CKD-EPI)NonAf 24.43 25.66 POC Glucometer Random Glucose 1187 H* 951 H* Hemoglobin A1c % Lactic Acid Calcium 7.0 L 7.0 L Phosphorus Magnesium Iron TIBC Iron Saturation Unsaturated IBC Ferritin Total Bilirubin AST ALT Alkaline Phosphatase Creatine Kinase Creatine Kinase Index CK-MB (CK-2) Troponin I 1.11 H* Total Protein Albumin Triglycerides Cholesterol Total LDL Cholesterol HDL Cholesterol Vitamin B12 Serum Folate TSH Free T4 Serum , Qual Urine Color Urine Appearance Urine pH Ur Specific Circle Urine Protein Urine Glucose (UA) Urine Ketones Urine Blood Urine Nitrite Urine Bilirubin Urine Urobilinogen Ur Leukocyte Esterase Urine WBC (Auto) Urine RBC (Auto) Urine Casts (Auto) U Epithel Cells (Auto) Urine Bacteria (Auto) Ur Random Sodium Ur Random Potassium Ur Random Chloride Salicylates Opiates Screen Methadone Screen Acetaminophen Barbiturate Screen Phencyclidine Screen Ur Amphetamines Screen MDMA (Ecstasy) Screen Benzodiazepines Screen Cocaine Screen U Marijuana (THC) Screen Alcohol, Quantitative Acetone, Qual 01/21/19 01/21/19 01/22/19 23:22 23:36 00:20 WBC RBC Hgb Hct MCV MCH MCHC RDW Plt Count MPV Absolute Neuts (auto) Total Counted Neutrophils % Neutrophils % (Manual) Band Neutrophils % Lymphocytes % Lymphocytes % (Manual) Monocytes % (Manual) Basophils % (Manual) Myelocytes % (Man) Nucleated RBC % Differential Comment Hypochromia Platelet Estimate Platelet Comment Polychromasia Macrocytosis Retic Count PT with INR INR Anticoagulation Therapy Puncture Site ABG pH ABG pCO2 at Pt Temp ABG pO2 at Pt Temp ABG HCO3 ABG O2 Sat (Measured) ABG O2 Content ABG Base Excess Terell Test VBG pH POC VBG pCO2 POC VBG pO2 VBG HCO3 VBG O2 Sat (Billie) VBG Base Excess O2 Delivery Device Oxygen Flow Rate Vent Mode Vent Rate Mechanical Rate Pressure Support Vent Sodium 128 L Potassium 4.8 Chloride 99 Carbon Dioxide 9 L Anion Gap 20 H BUN 57.5 H Creatinine 2.4 H Est GFR (CKD-EPI)AfAm 29.75 Est GFR (CKD-EPI)NonAf 25.66 POC Glucometer > 600 Random Glucose 860 H* Hemoglobin A1c % Lactic Acid 2.1 H Calcium 7.1 L Phosphorus Magnesium Iron TIBC Iron Saturation Unsaturated IBC Ferritin Total Bilirubin AST ALT Alkaline Phosphatase Creatine Kinase Creatine Kinase Index CK-MB (CK-2) Troponin I Total Protein Albumin Triglycerides Cholesterol Total LDL Cholesterol HDL Cholesterol Vitamin B12 Serum Folate TSH Free T4 Serum , Qual Urine Color Urine Appearance Urine pH Ur Specific Circle Urine Protein Urine Glucose (UA) Urine Ketones Urine Blood Urine Nitrite Urine Bilirubin Urine Urobilinogen Ur Leukocyte Esterase Urine WBC (Auto) Urine RBC (Auto) Urine Casts (Auto) U Epithel Cells (Auto) Urine Bacteria (Auto) Ur Random Sodium Ur Random Potassium Ur Random Chloride Salicylates Opiates Screen Methadone Screen Acetaminophen Barbiturate Screen Phencyclidine Screen Ur Amphetamines Screen MDMA (Ecstasy) Screen Benzodiazepines Screen Cocaine Screen U Marijuana (THC) Screen Alcohol, Quantitative Acetone, Qual 01/22/19 01/22/19 01/22/19 00:20 00:35 01:00 WBC 23.3 H RBC 2.68 L Hgb 7.8 L Hct 25.4 L MCV 94.5 D MCH 28.9 MCHC 30.6 L RDW 13.6 Plt Count 330 D MPV 9.8 Absolute Neuts (auto) Total Counted Neutrophils % Neutrophils % (Manual) Band Neutrophils % Lymphocytes % Lymphocytes % (Manual) Monocytes % (Manual) Basophils % (Manual) Myelocytes % (Man) Nucleated RBC % Differential Comment Hypochromia Platelet Estimate Platelet Comment Polychromasia Macrocytosis Retic Count PT with INR INR Anticoagulation Therapy Puncture Site ABG pH ABG pCO2 at Pt Temp ABG pO2 at Pt Temp ABG HCO3 ABG O2 Sat (Measured) ABG O2 Content ABG Base Excess Terell Test VBG pH POC VBG pCO2 POC VBG pO2 VBG HCO3 VBG O2 Sat (Billie) VBG Base Excess O2 Delivery Device Oxygen Flow Rate Vent Mode Vent Rate Mechanical Rate Pressure Support Vent Sodium Potassium Chloride Carbon Dioxide Anion Gap BUN Creatinine Est GFR (CKD-EPI)AfAm Est GFR (CKD-EPI)NonAf POC Glucometer > 600 Random Glucose Hemoglobin A1c % Lactic Acid Calcium Phosphorus Magnesium Iron TIBC Iron Saturation Unsaturated IBC Ferritin Total Bilirubin AST ALT Alkaline Phosphatase Creatine Kinase Creatine Kinase Index CK-MB (CK-2) Troponin I Total Protein Albumin Triglycerides Cholesterol Total LDL Cholesterol HDL Cholesterol Vitamin B12 Serum Folate TSH Free T4 Serum , Qual Urine Color Yellow Urine Appearance Clear Urine pH 5.[address] 1.021 Urine Protein Trace Urine Glucose (UA) 3+ H Urine Ketones 1+ H Urine Blood Trace Urine Nitrite Negative Urine Bilirubin Negative Urine Urobilinogen 0.2 Ur Leukocyte Esterase Negative Urine WBC (Auto) 3 Urine RBC (Auto) 10 Urine Casts (Auto) 3 U Epithel Cells (Auto) 4 Urine Bacteria (Auto) 30 Ur Random Sodium Ur Random Potassium Ur Random Chloride Salicylates Opiates Screen Methadone Screen Acetaminophen Barbiturate Screen Phencyclidine Screen Ur Amphetamines Screen MDMA (Ecstasy) Screen Benzodiazepines Screen Cocaine Screen U Marijuana (THC) Screen Alcohol, Quantitative Acetone, Qual 01/22/19 01/22/19 01/22/19 01:28 02:20 02:30 WBC RBC Hgb Hct MCV MCH MCHC RDW Plt Count MPV Absolute Neuts (auto) Total Counted Neutrophils % Neutrophils % (Manual) Band Neutrophils % Lymphocytes % Lymphocytes % (Manual) Monocytes % (Manual) Basophils % (Manual) Myelocytes % (Man) Nucleated RBC % Differential Comment Hypochromia Platelet Estimate Platelet Comment Polychromasia Macrocytosis Retic Count PT with INR INR Anticoagulation Therapy No Result Required. Puncture Site Right radial ABG pH 7.18 L* ABG pCO2 at Pt Temp 27.8 L ABG pO2 at Pt Temp 56.3 L ABG HCO3 10.0 L ABG O2 Sat (Measured) 86.5 L ABG O2 Content 8.3 L* ABG Base Excess -16.7 L Terell Test Positive VBG pH POC VBG pCO2 POC VBG pO2 VBG HCO3 VBG O2 Sat (Billie) VBG Base Excess O2 Delivery Device Room air Oxygen Flow Rate 21% Vent Mode No Result Required. Vent Rate No Result Required. Mechanical Rate No Result Required. Pressure Support Vent No Result Required. Sodium 132 L Potassium 4.7 Chloride 102 Carbon Dioxide 11 L Anion Gap 19 H BUN 55.8 H Creatinine 2.5 H Est GFR (CKD-EPI)AfAm 28.31 Est GFR (CKD-EPI)NonAf 24.43 POC Glucometer > 600 Random Glucose 744 H* Hemoglobin A1c % Lactic Acid Calcium 7.1 L Phosphorus Magnesium Iron TIBC Iron Saturation Unsaturated IBC Ferritin Total Bilirubin AST ALT Alkaline Phosphatase Creatine Kinase Creatine Kinase Index CK-MB (CK-2) Troponin I 1.74 H* Total Protein Albumin Triglycerides Cholesterol Total LDL Cholesterol HDL Cholesterol Vitamin B12 Serum Folate TSH Free T4 Serum , Qual Urine Color Urine Appearance Urine pH Ur Specific Circle Urine Protein Urine Glucose (UA) Urine Ketones Urine Blood Urine Nitrite Urine Bilirubin Urine Urobilinogen Ur Leukocyte Esterase Urine WBC (Auto) Urine RBC (Auto) Urine Casts (Auto) U Epithel Cells (Auto) Urine Bacteria (Auto) Ur Random Sodium Ur Random Potassium Ur Random Chloride Salicylates Opiates Screen Methadone Screen Acetaminophen Barbiturate Screen Phencyclidine Screen Ur Amphetamines Screen MDMA (Ecstasy) Screen Benzodiazepines Screen Cocaine Screen U Marijuana (THC) Screen Alcohol, Quantitative Acetone, Qual 01/22/19 01/22/19 01/22/19 02:41 03:09 04:20 WBC RBC Hgb Hct MCV MCH MCHC RDW Plt Count MPV Absolute Neuts (auto) Total Counted Neutrophils % Neutrophils % (Manual) Band Neutrophils % Lymphocytes % Lymphocytes % (Manual) Monocytes % (Manual) Basophils % (Manual) Myelocytes % (Man) Nucleated RBC % Differential Comment Hypochromia Platelet Estimate Platelet Comment Polychromasia Macrocytosis Retic Count PT with INR INR Anticoagulation Therapy Puncture Site ABG pH ABG pCO2 at Pt Temp ABG pO2 at Pt Temp ABG HCO3 ABG O2 Sat (Measured) ABG O2 Content ABG Base Excess Terell Test VBG pH POC VBG pCO2 POC VBG pO2 VBG HCO3 VBG O2 Sat (Billie) VBG Base Excess O2 Delivery Device Oxygen Flow Rate Vent Mode Vent Rate Mechanical Rate Pressure Support Vent Sodium 133 L Potassium 4.3 Chloride 104 Carbon Dioxide 14 L Anion Gap 14 BUN 54.7 H Creatinine 2.5 H Est GFR (CKD-EPI)AfAm 28.31 Est GFR (CKD-EPI)NonAf 24.43 POC Glucometer 556 > 600 Random Glucose 645 H* Hemoglobin A1c % Lactic Acid Calcium 7.3 L Phosphorus Magnesium Iron TIBC Iron Saturation Unsaturated IBC Ferritin Total Bilirubin AST ALT Alkaline Phosphatase Creatine Kinase Creatine Kinase Index CK-MB (CK-2) Troponin I Total Protein Albumin Triglycerides Cholesterol Total LDL Cholesterol HDL Cholesterol Vitamin B12 Serum Folate TSH Free T4 Serum , Qual Urine Color Urine Appearance Urine pH Ur Specific Circle Urine Protein Urine Glucose (UA) Urine Ketones Urine Blood Urine Nitrite Urine Bilirubin Urine Urobilinogen Ur Leukocyte Esterase Urine WBC (Auto) Urine RBC (Auto) Urine Casts (Auto) U Epithel Cells (Auto) Urine Bacteria (Auto) Ur Random Sodium Ur Random Potassium Ur Random Chloride Salicylates Opiates Screen Methadone Screen Acetaminophen Barbiturate Screen Phencyclidine Screen Ur Amphetamines Screen MDMA (Ecstasy) Screen Benzodiazepines Screen Cocaine Screen U Marijuana (THC) Screen Alcohol, Quantitative Acetone, Qual 01/22/19 01/22/19 01/22/19 04:40 05:42 06:00 WBC RBC Hgb Hct MCV MCH MCHC RDW Plt Count MPV Absolute Neuts (auto) Total Counted Neutrophils % Neutrophils % (Manual) Band Neutrophils % Lymphocytes % Lymphocytes % (Manual) Monocytes % (Manual) Basophils % (Manual) Myelocytes % (Man) Nucleated RBC % Differential Comment Hypochromia Platelet Estimate Platelet Comment Polychromasia Macrocytosis Retic Count 1.79 H PT with INR INR Anticoagulation Therapy Puncture Site Right radial ABG pH 7.24 L ABG pCO2 at Pt Temp 32.9 L ABG pO2 at Pt Temp 74.3 L ABG HCO3 13.5 L ABG O2 Sat (Measured) 94.2 L ABG O2 Content 10.4 L ABG Base Excess -12.5 L Terell Test Positive VBG pH POC VBG pCO2 POC VBG pO2 VBG HCO3 VBG O2 Sat (Billie) VBG Base Excess O2 Delivery Device Room air Oxygen Flow Rate 21% Vent Mode Vent Rate Mechanical Rate Pressure Support Vent Sodium Potassium Chloride Carbon Dioxide Anion Gap BUN Creatinine Est GFR (CKD-EPI)AfAm Est GFR (CKD-EPI)NonAf POC Glucometer 557 Random Glucose Hemoglobin A1c % Lactic Acid Calcium Phosphorus Magnesium Iron TIBC Iron Saturation Unsaturated IBC Ferritin Total Bilirubin AST ALT Alkaline Phosphatase Creatine Kinase Creatine Kinase Index CK-MB (CK-2) Troponin I Total Protein Albumin Triglycerides Cholesterol Total LDL Cholesterol HDL Cholesterol Vitamin B12 Serum Folate TSH Free T4 Serum , Qual Urine Color Urine Appearance Urine pH Ur Specific Circle Urine Protein Urine Glucose (UA) Urine Ketones Urine Blood Urine Nitrite Urine Bilirubin Urine Urobilinogen Ur Leukocyte Esterase Urine WBC (Auto) Urine RBC (Auto) Urine Casts (Auto) U Epithel Cells (Auto) Urine Bacteria (Auto) Ur Random Sodium Ur Random Potassium Ur Random Chloride Salicylates Opiates Screen Methadone Screen Acetaminophen Barbiturate Screen Phencyclidine Screen Ur Amphetamines Screen MDMA (Ecstasy) Screen Benzodiazepines Screen Cocaine Screen U Marijuana (THC) Screen Alcohol, Quantitative Acetone, Qual 01/22/19 01/22/19 01/22/19 06:29 06:30 06:30 WBC 18.5 H RBC 2.66 L Hgb 7.7 L Hct 23.7 L MCV 89.3 MCH 28.8 MCHC 32.3 RDW 13.3 Plt Count 305 MPV 9.5 Absolute Neuts (auto) Total Counted Neutrophils % Neutrophils % (Manual) Band Neutrophils % Lymphocytes % Lymphocytes % (Manual) Monocytes % (Manual) Basophils % (Manual) Myelocytes % (Man) Nucleated RBC % Differential Comment Hypochromia Platelet Estimate Platelet Comment Polychromasia Macrocytosis Retic Count PT with INR INR Anticoagulation Therapy Puncture Site ABG pH ABG pCO2 at Pt Temp ABG pO2 at Pt Temp ABG HCO3 ABG O2 Sat (Measured) ABG O2 Content ABG Base Excess Terell Test VBG pH POC VBG pCO2 POC VBG pO2 VBG HCO3 VBG O2 Sat (Billie) VBG Base Excess O2 Delivery Device Oxygen Flow Rate Vent Mode Vent Rate Mechanical Rate Pressure Support Vent Sodium Potassium Chloride Carbon Dioxide Anion Gap BUN Creatinine Est GFR (CKD-EPI)AfAm Est GFR (CKD-EPI)NonAf POC Glucometer 485 Random Glucose Hemoglobin A1c % Lactic Acid Calcium Phosphorus 4.1 Magnesium 1.9 Iron 57 TIBC 245 L Iron Saturation 23 Unsaturated IBC 188 L Ferritin 107.8 Total Bilirubin AST ALT Alkaline Phosphatase Creatine Kinase Creatine Kinase Index CK-MB (CK-2) Troponin I Total Protein Albumin Triglycerides Cholesterol Total LDL Cholesterol HDL Cholesterol Vitamin B12 > 6000 H Serum Folate 68 H TSH Free T4 Serum , Qual Urine Color Urine Appearance Urine pH Ur Specific Circle Urine Protein Urine Glucose (UA) Urine Ketones Urine Blood Urine Nitrite Urine Bilirubin Urine Urobilinogen Ur Leukocyte Esterase Urine WBC (Auto) Urine RBC (Auto) Urine Casts (Auto) U Epithel Cells (Auto) Urine Bacteria (Auto) Ur Random Sodium Ur Random Potassium Ur Random Chloride Salicylates Opiates Screen Methadone Screen Acetaminophen Barbiturate Screen Phencyclidine Screen Ur Amphetamines Screen MDMA (Ecstasy) Screen Benzodiazepines Screen Cocaine Screen U Marijuana (THC) Screen Alcohol, Quantitative Acetone, Qual 01/22/19 01/22/19 01/22/19 06:30 06:30 06:30 WBC RBC Hgb Hct MCV MCH MCHC RDW Plt Count MPV Absolute Neuts (auto) Total Counted Neutrophils % Neutrophils % (Manual) Band Neutrophils % Lymphocytes % Lymphocytes % (Manual) Monocytes % (Manual) Basophils % (Manual) Myelocytes % (Man) Nucleated RBC % Differential Comment Hypochromia Platelet Estimate Platelet Comment Polychromasia Macrocytosis Retic Count PT with INR INR Anticoagulation Therapy Puncture Site ABG pH ABG pCO2 at Pt Temp ABG pO2 at Pt Temp ABG HCO3 ABG O2 Sat (Measured) ABG O2 Content ABG Base Excess Terell Test VBG pH POC VBG pCO2 POC VBG pO2 VBG HCO3 VBG O2 Sat (Billie) VBG Base Excess O2 Delivery Device Oxygen Flow Rate Vent Mode Vent Rate Mechanical Rate Pressure Support Vent Sodium 136 Potassium 4.1 Chloride 107 Carbon Dioxide 16 L Anion Gap 14 BUN 50.3 H Creatinine 2.4 H Est GFR (CKD-EPI)AfAm 29.75 Est GFR (CKD-EPI)NonAf 25.66 POC Glucometer Random Glucose 511 H* Hemoglobin A1c % 12.6 H Lactic Acid Calcium 7.2 L Phosphorus Magnesium Iron TIBC Iron Saturation Unsaturated IBC Ferritin Total Bilirubin AST ALT Alkaline Phosphatase Creatine Kinase Creatine Kinase Index CK-MB (CK-2) Troponin I 1.95 H* Total Protein Albumin Triglycerides 118 Cholesterol 90 Total LDL Cholesterol 32 HDL Cholesterol 50 Vitamin B12 Serum Folate TSH Free T4 Serum , Qual Urine Color Urine Appearance Urine pH Ur Specific Circle Urine Protein Urine Glucose (UA) Urine Ketones Urine Blood Urine Nitrite Urine Bilirubin Urine Urobilinogen Ur Leukocyte Esterase Urine WBC (Auto) Urine RBC (Auto) Urine Casts (Auto) U Epithel Cells (Auto) Urine Bacteria (Auto) Ur Random Sodium Ur Random Potassium Ur Random Chloride Salicylates Opiates Screen Methadone Screen Acetaminophen Barbiturate Screen Phencyclidine Screen Ur Amphetamines Screen MDMA (Ecstasy) Screen Benzodiazepines Screen Cocaine Screen U Marijuana (THC) Screen Alcohol, Quantitative Acetone, Qual 01/22/19 01/22/19 01/22/19 08:10 08:15 09:05 WBC RBC Hgb Hct MCV MCH MCHC RDW Plt Count MPV Absolute Neuts (auto) Total Counted Neutrophils % Neutrophils % (Manual) Band Neutrophils % Lymphocytes % Lymphocytes % (Manual) Monocytes % (Manual) Basophils % (Manual) Myelocytes % (Man) Nucleated RBC % Differential Comment Hypochromia Platelet Estimate Platelet Comment Polychromasia Macrocytosis Retic Count PT with INR INR Anticoagulation Therapy Puncture Site ABG pH ABG pCO2 at Pt Temp ABG pO2 at Pt Temp ABG HCO3 ABG O2 Sat (Measured) ABG O2 Content ABG Base Excess Terell Test VBG pH POC VBG pCO2 POC VBG pO2 VBG HCO3 VBG O2 Sat (Billie) VBG Base Excess O2 Delivery Device Oxygen Flow Rate Vent Mode Vent Rate Mechanical Rate Pressure Support Vent Sodium 137 Potassium 3.8 Chloride 108 H Carbon Dioxide 17 L Anion Gap 12 BUN 47.8 H Creatinine 2.2 H Est GFR (CKD-EPI)AfAm 33.05 Est GFR (CKD-EPI)NonAf 28.51 POC Glucometer 406 387 Random Glucose 415 H* Hemoglobin A1c % Lactic Acid Calcium 7.4 L Phosphorus Magnesium Iron TIBC Iron Saturation Unsaturated IBC Ferritin Total Bilirubin AST ALT Alkaline Phosphatase Creatine Kinase Creatine Kinase Index CK-MB (CK-2) Troponin I Total Protein Albumin Triglycerides Cholesterol Total LDL Cholesterol HDL Cholesterol Vitamin B12 Serum Folate TSH Free T4 Serum , Qual Urine Color Urine Appearance Urine pH Ur Specific Circle Urine Protein Urine Glucose (UA) Urine Ketones Urine Blood Urine Nitrite Urine Bilirubin Urine Urobilinogen Ur Leukocyte Esterase Urine WBC (Auto) Urine RBC (Auto) Urine Casts (Auto) U Epithel Cells (Auto) Urine Bacteria (Auto) Ur Random Sodium Ur Random Potassium Ur Random Chloride Salicylates Opiates Screen Methadone Screen Acetaminophen Barbiturate Screen Phencyclidine Screen Ur Amphetamines Screen MDMA (Ecstasy) Screen Benzodiazepines Screen Cocaine Screen U Marijuana (THC) Screen Alcohol, Quantitative Acetone, Qual 01/22/19 01/22/19 01/22/19 09:55 10:15 10:30 WBC RBC Hgb Hct MCV MCH MCHC RDW Plt Count MPV Absolute Neuts (auto) Total Counted Neutrophils % Neutrophils % (Manual) Band Neutrophils % Lymphocytes % Lymphocytes % (Manual) Monocytes % (Manual) Basophils % (Manual) Myelocytes % (Man) Nucleated RBC % Differential Comment Hypochromia Platelet Estimate Platelet Comment Polychromasia Macrocytosis Retic Count PT with INR INR Anticoagulation Therapy Puncture Site ABG pH ABG pCO2 at Pt Temp ABG pO2 at Pt Temp ABG HCO3 ABG O2 Sat (Measured) ABG O2 Content ABG Base Excess Terell Test VBG pH POC VBG pCO2 POC VBG pO2 VBG HCO3 VBG O2 Sat (Billie) VBG Base Excess O2 Delivery Device Oxygen Flow Rate Vent Mode Vent Rate Mechanical Rate Pressure Support Vent Sodium Potassium Chloride Carbon Dioxide Anion Gap BUN Creatinine Est GFR (CKD-EPI)AfAm Est GFR (CKD-EPI)NonAf POC Glucometer 332 Random Glucose Hemoglobin A1c % Lactic Acid Calcium Phosphorus Magnesium Iron TIBC Iron Saturation Unsaturated IBC Ferritin Total Bilirubin AST ALT Alkaline Phosphatase Creatine Kinase 166 Creatine Kinase Index 3.9 CK-MB (CK-2) 6.6 H Troponin I 1.77 H* Total Protein Albumin Triglycerides Cholesterol Total LDL Cholesterol HDL Cholesterol Vitamin B12 Serum Folate TSH Free T4 Serum , Qual Urine Color Urine Appearance Urine pH Ur Specific Circle Urine Protein Urine Glucose (UA) Urine Ketones Urine Blood Urine Nitrite Urine Bilirubin Urine Urobilinogen Ur Leukocyte Esterase Urine WBC (Auto) Urine RBC (Auto) Urine Casts (Auto) U Epithel Cells (Auto) Urine Bacteria (Auto) Ur Random Sodium 37 L Ur Random Potassium 21.0 L Ur Random Chloride 43 L Salicylates Opiates Screen Methadone Screen Acetaminophen Barbiturate Screen Phencyclidine Screen Ur Amphetamines Screen MDMA (Ecstasy) Screen Benzodiazepines Screen Cocaine Screen U Marijuana (THC) Screen Alcohol, Quantitative Acetone, Qual 01/22/19 01/22/19 01/22/19 10:53 12:03 13:12 WBC RBC Hgb Hct MCV MCH MCHC RDW Plt Count MPV Absolute Neuts (auto) Total Counted Neutrophils % Neutrophils % (Manual) Band Neutrophils % Lymphocytes % Lymphocytes % (Manual) Monocytes % (Manual) Basophils % (Manual) Myelocytes % (Man) Nucleated RBC % Differential Comment Hypochromia Platelet Estimate Platelet Comment Polychromasia Macrocytosis Retic Count PT with INR INR Anticoagulation Therapy Puncture Site ABG pH ABG pCO2 at Pt Temp ABG pO2 at Pt Temp ABG HCO3 ABG O2 Sat (Measured) ABG O2 Content ABG Base Excess Terell Test VBG pH POC VBG pCO2 POC VBG pO2 VBG HCO3 VBG O2 Sat (Billie) VBG Base Excess O2 Delivery Device Oxygen Flow Rate Vent Mode Vent Rate Mechanical Rate Pressure Support Vent Sodium Potassium Chloride Carbon Dioxide Anion Gap BUN Creatinine Est GFR (CKD-EPI)AfAm Est GFR (CKD-EPI)NonAf POC Glucometer 282 180 166 Random Glucose Hemoglobin A1c % Lactic Acid Calcium Phosphorus Magnesium Iron TIBC Iron Saturation Unsaturated IBC Ferritin Total Bilirubin AST ALT Alkaline Phosphatase Creatine Kinase Creatine Kinase Index CK-MB (CK-2) Troponin I Total Protein Albumin Triglycerides Cholesterol Total LDL Cholesterol HDL Cholesterol Vitamin B12 Serum Folate TSH Free T4 Serum , Qual Urine Color Urine Appearance Urine pH Ur Specific Circle Urine Protein Urine Glucose (UA) Urine Ketones Urine Blood Urine Nitrite Urine Bilirubin Urine Urobilinogen Ur Leukocyte Esterase Urine WBC (Auto) Urine RBC (Auto) Urine Casts (Auto) U Epithel Cells (Auto) Urine Bacteria (Auto) Ur Random Sodium Ur Random Potassium Ur Random Chloride Salicylates Opiates Screen Methadone Screen Acetaminophen Barbiturate Screen Phencyclidine Screen Ur Amphetamines Screen MDMA (Ecstasy) Screen Benzodiazepines Screen Cocaine Screen U Marijuana (THC) Screen Alcohol, Quantitative Acetone, Qual 01/22/19 01/22/19 14:41 15:28 WBC RBC Hgb Hct MCV MCH MCHC RDW Plt Count MPV Absolute Neuts (auto) Total Counted Neutrophils % Neutrophils % (Manual) Band Neutrophils % Lymphocytes % Lymphocytes % (Manual) Monocytes % (Manual) Basophils % (Manual) Myelocytes % (Man) Nucleated RBC % Differential Comment Hypochromia Platelet Estimate Platelet Comment Polychromasia Macrocytosis Retic Count PT with INR INR Anticoagulation Therapy Puncture Site ABG pH ABG pCO2 at Pt Temp ABG pO2 at Pt Temp ABG HCO3 ABG O2 Sat (Measured) ABG O2 Content ABG Base Excess Terell Test VBG pH POC VBG pCO2 POC VBG pO2 VBG HCO3 VBG O2 Sat (Billie) VBG Base Excess O2 Delivery Device Oxygen Flow Rate Vent Mode Vent Rate Mechanical Rate Pressure Support Vent Sodium Potassium Chloride Carbon Dioxide Anion Gap BUN Creatinine Est GFR (CKD-EPI)AfAm Est GFR (CKD-EPI)NonAf POC Glucometer 224 276 Random Glucose Hemoglobin A1c % Lactic Acid Calcium Phosphorus Magnesium Iron TIBC Iron Saturation Unsaturated IBC Ferritin Total Bilirubin AST ALT Alkaline Phosphatase Creatine Kinase Creatine Kinase Index CK-MB (CK-2) Troponin I Total Protein Albumin Triglycerides Cholesterol Total LDL Cholesterol HDL Cholesterol Vitamin B12 Serum Folate TSH Free T4 Serum , Qual Urine Color Urine Appearance Urine pH Ur Specific Circle Urine Protein Urine Glucose (UA) Urine Ketones Urine Blood Urine Nitrite Urine Bilirubin Urine Urobilinogen Ur Leukocyte Esterase Urine WBC (Auto) Urine RBC (Auto) Urine Casts (Auto) U Epithel Cells (Auto) Urine Bacteria (Auto) Ur Random Sodium Ur Random Potassium Ur Random Chloride Salicylates Opiates Screen Methadone Screen Acetaminophen Barbiturate Screen Phencyclidine Screen Ur Amphetamines Screen MDMA (Ecstasy) Screen Benzodiazepines Screen Cocaine Screen U Marijuana (THC) Screen Alcohol, Quantitative Acetone, Qual Current Medications Generic Name Dose Route Start Last Admin Trade Name Geovanniq PRN Reason Stop Dose Admin Chlorhexidine Gluconate 1 applic 01/22/19 22:00 Hibiclens For Decolonization - TP HS JULIO CESAR Fludrocortisone Acetate 0.1 mg 01/21/19 19:00 01/22/19 10:22 Florinef - PO 0.1 mg DAILY JULIO CESAR Administration Heparin Sodium (Porcine) 5,000 unit 01/22/19 02:00 01/22/19 09:50 Heparin - SQ Not Given Q8H-IV JULIO CESAR Insulin Human Regular 100 100 mls @ 10.88 mls/hr 01/21/19 19:30 01/22/19 15: 41 units/ Sodium Chloride IVPB 0.2 units/kg/hr TITR JULIO CESAR 10.88 mls/hr Titration Protocol 0.2 UNITS/KG/HR Sodium Chloride 1,000 mls @ 250 mls/hr 01/21/19 20:38 01/22/19 13:20 Normal Saline - IV 250 mls/hr ASDIR JULIO CESAR Administration Norepinephrine Bitartrate 4, 500 mls @ 37.5 mls/hr 01/22/19 16:00 000 mcg/ Sodium Chloride IV TITR JULIO CESAR Protocol 5 MCG/MIN Insulin Aspart 1 vial 01/22/19 16:30 01/22/19 15:40 Novolog Vial Sliding Scale - SQ Not Given ACHS JULIO CESAR Protocol Mupirocin 1 applic 01/21/19 22:00 01/22/19 12:44 Bactroban Ointment (For Decolonization) - NS 01/26/19 21:59 1 applic BID JULIO CESAR Administration Ondansetron HCl 8 mg 01/22/19 10:19 Zofran Injection IVPUSH Q6H PRN NAUSEA Home Medications Medication Instructions Recorded Fludrocortisone Acetate 0.1 mg PO DAILY 08/10/16 Insulin Pump/Infus. Set/Meter 1 each ASDIR 08/10/16 [Accu-Chek Combo System] ASSESSMENT/PLAN: 33 year old female with DM 1, legally blind, brought to ED with 2 day history of elevated capillary glucose readings at home with drowsiness and disorientation noted by her grandmother. she was found to have AGMA with pH 7.05 and Urine positive for acetone. 1. DKA - unclear insulin compliance via Insulin pump No focus of infection identified. Acidosis improving and AG closing with adequate fluid resuscitation. Still on insulin drip. Maintain NPO/aggressive IV fluids/Insulin drip Monitor electrolytes. Zofran for nausea. 2. Hypovolemic Shock secondary to possible adrenal insufficiency. No clear evidence for sepsis. Attempt to wean off Levophed. Normally on fludrocortisone - given stress dose steroids and Endocrine consulted for possible Adrenal insufficiency. Serum cortisol level pending. 3. Acute metabolic Encephalopathy sec to Acidemia and Hyperglycemia Resolved with DKA management, improvement of hydration status. 4. Hyperkalemia - resolved with fluid resuscitation and insulin administration. 5. Troponin Egression, due to increased demand in setting of hypotension and coronary hypoperfusion. No history of CAD. No CP. Cardio consulted. 6. Macrocytic Anemia - low threshold to transfuse in setting of Hypovolemic shock, elevated troponins. No evidence of acute blood loss. B12/Folate levels high (B12 > 6000, Folate 68). Retic count mildly elevated at 1.79. Hematology referral as out-patient. 7. LESTER due to Hypovolemia and possible ATN sec to Hypotension - continue IV hydration. Renal US pending. 8. Elevated TSH, appears to be possibly secondary to acute illness. FreeT4 normal. Unclear relationship between elevated TSH and macrocytosis. 9. Leukoctosis, likley reactive. No focus of infection. CXR clear. Urine and Blood Cx pending. DVT Px - Heparin SQ GI Px - PPI Visit type - Emergency Visit Emergency Visit: Yes ED Registration Date: 01/21/19 Care time: The patient presented to the Emergency Department on the above date and was hospitalized for further evaluation of their emergent condition. - New Patient This patient is new to me today: Yes Date on this admission: 01/23/19 - Critical Care Critical Care patient: Yes Total Critical Care Time (in minutes): 40 Critical Care Statement: The care of this patient involved high complexity decision making to prevent further life threatening deterioration of the patient 's condition and/or to evaluate & treat vital organ system(s) failure or risk of failure.
[2019-01-22] MEDS: PANTOPRAZOLE SODIUM 40 MG VIAL IVPUSH SCH (17:30)
[2019-01-22 18:26] LABS: VENOUS PC02 36.4 mmHg (41-51); VENOUS PH 7.23 (7.31-7.41); VENOUS PO2 60.9 mmHg (30-40)
[2019-01-22 18:32] LABS: BASO % 0.5 % (0-2.0); EOS % 0.1 % (0-4.5); HEMOGLOBIN 7.3 GM/dL (10.7-15.3); LYMPH % 15.6 % (8-40); MEAN CELL VOLUME 87.7 fl (80-96); MEAN PLT VOLUME 8.5 fl (7.5-11.1); MONO % 5.5 % (3.8-10.2); NEUT % 78.3 % (42.8-82.8); PLATELET COUNT 277 K/MM3 (134-434); RBC 2.51 M/mm3 (3.60-5.2); RDW 13.3 % (11.6-15.6); WHITE BLOOD COUNT 15.3 K/mm3 (4.0-10.0)
[2019-01-22 18:56] LABS: ALBUMIN 2.4 g/dl (3.4-5.0); BILIRUBIN,TOTAL 0.3 mg/dL (0.2-1); BLOOD UREA NITROGEN 43.1 mg/dL (7-18); CALCIUM 7.2 mg/dL (8.5-10.1); CREATININE 1.9 mg/dL (0.55-1.3); POTASSIUM 3.5 mmol/L (3.5-5.1); TOT PROT 4.8 g/dl (6.4-8.2)
[2019-01-22] MEDS ORDERED: FLUDROCORTISONE ACETATE 0.1 MG TABLET (FP) PO ONE (18:58)
[2019-01-22] MEDS ORDERED: INSULIN (LEVEMIR) 100 UNITS/ML UNITS SQ ONE (19:26)
[2019-01-22] MEDS ORDERED: LEVOTHYROXINE SODIUM 100 MCG VIAL IVPUSH ONE (19:31)
[2019-01-22] MEDS ORDERED: POTASSIUM CHLORIDE 10 MEQ in SODIUM CHLORIDE 1,000 ML IVPB SCH (19:45)
--- NOTE | 2019-01-22 19:45 | CONSULT ---
Consult Consult Specialty:: ENDOCRINOLOGY Referred by:: NATE CHAKRABORTY MD Reason for Consultation:: DKA/HYPOTENSION - History of Present Illness Chief Complaint: FEELING WEAK History of Present Illness: 33 y/o F BIBEMS to the ED with altered mental status, nausea, and report of 2 days of BGM in the 600s. Pt dx w DM1 in 2000 on first DKA admission ([facility]). She has been on insulin pump for many years,yet has difficulty seeing the numbers on the device,she states sugars were elevated despite taking insulin buloses,with pump,she was feeling worse and became hard to arouse which prompted her family to call ems. - History Source History Provided By: Family Member - Past Medical History Cardio/Vascular: Yes: Other (hypotension) Gastrointestinal: Yes: Irritable Bowel Disease (Follows Dr Mai) ...LMP: 11/24/18 Endocrine: Yes: Diabetes Mellitus, Hypothyroidism - Past Surgical History Past Surgical History: Yes: Tonsillectomy - Alcohol/Substance Use Hx Alcohol Use: No - Smoking History Smoking history: Never smoked Have you smoked in the past 12 months: No Aproximately how many cigarettes per day: 0 - Social History ADL: Independent History of Recent Travel: No Home Medications - Allergies Allergies/Adverse Reactions: Allergies Allergy/AdvReac Type Severity Reaction Status Date / Time No Known Allergies Allergy Verified 12/11/18 22:26 - Home Medications Home Medications: Ambulatory Orders Fludrocortisone Acetate 0.1 mg PO DAILY 08/10/16 Insulin Pump/Infus. Set/Meter [Accu-Chek Combo System] 1 each MC ASDIR 08/10/16 Family Disease History - Family Disease History Family Disease History: Other: Grandparent (Paternal-Colon CAdiagnosed at 60years, now 80year), Father (OA), Mother (CKD, RhA- at 54yrs), Brother ( Healthy-36) Review of Systems - Review of Systems Constitutional: reports: Lethargy, Malaise, Unintentional Wgt. Loss, Weakness Eyes: reports: Blurred Vision HENT: reports: No Symptoms Neck: reports: No Symptoms Cardiovascular: reports: Shortness of Breath Respiratory: reports: Exercise Intolerance Gastrointestinal: reports: Bloating, Nausea Genitourinary: reports: No Symptoms Breasts: reports: No Symptoms Reported Musculoskeletal: reports: Muscle Weakness Neurological: reports: Numbness Physical Exam Vital Signs: Vital Signs Temperature 98.8 F 01/22/19 18:00 Pulse Rate 90 01/22/19 18:00 Respiratory Rate 12 01/22/19 18:00 Blood Pressure 88/49 L 01/22/19 18:00 O2 Sat by Pulse Oximetry (%) 100 01/22/19 09:00 Constitutional: Yes: Calm Eyes: Yes: EOM Intact HENT: Yes: Normocephalic Neck: Yes: Trachea Midline Cardiovascular: Yes: Regular Rate and Rhythm Respiratory: Yes: CTA Bilaterally Gastrointestinal: Yes: Normal Bowel Sounds ...Rectal Exam: Yes: Deferred Renal/: Yes: WNL Musculoskeletal: Yes: Muscle Weakness Extremities: Yes: Delayed Capillary Refill Edema: LLE: 1+, RLE: 1+ Neurological: Yes: Alert, Oriented Labs: CBC, BMP 01/22/19 18:00 01/22/19 18:00 Problem List - Problems (1) Hypotension Code(s): I95.9 - HYPOTENSION, UNSPECIFIED Qualifiers: Hypotension type: orthostatic hypotension Qualified Code(s): I95.1 - Orthostatic hypotension (2) Anemia Code(s): D64.9 - ANEMIA, UNSPECIFIED (3) DKA (diabetic ketoacidoses) Code(s): E11.10 - TYPE 2 DIABETES MELLITUS WITH KETOACIDOSIS WITHOUT COMA (4) LESTER (acute kidney injury) Code(s): N17.9 - ACUTE KIDNEY FAILURE, UNSPECIFIED (5) Common cold Code(s): J00 - ACUTE NASOPHARYNGITIS [COMMON COLD] (6) Diabetes Code(s): E11.9 - TYPE 2 DIABETES MELLITUS WITHOUT COMPLICATIONS Qualifiers: Diabetes mellitus type: type 1 Assessment/Plan Current Active Problems hypotension/hypoadrenal Anemia (Acute) DKA (diabetic ketoacidoses) (Acute) Demand ischemia (Acute) Leukocytosis (Acute) Abnormal Lab Results 01/21/19 01/21/19 01/21/19 20:05 20:30 20:30 WBC RBC Hgb Hct MCHC Absolute Neuts (auto) Retic Count ABG pH 6.94 L* ABG pCO2 at Pt Temp 14.0 L* ABG pO2 at Pt Temp 129 H ABG HCO3 2.8 L ABG O2 Sat (Measured) ABG O2 Content 10.6 L ABG Base Excess -27.7 L VBG pH POC VBG pCO2 POC VBG pO2 VBG HCO3 VBG O2 Sat (Billie) VBG Base Excess Sodium 126 L 123 L Potassium 5.5 H 5.8 H Chloride 95 L 92 L Carbon Dioxide 6 L 6 L Anion Gap 25 H 25 H BUN 59.8 H 62.1 H Creatinine 2.5 H 2.5 H Random Glucose 1062 H* 1187 H* Hemoglobin A1c % Lactic Acid Calcium 6.9 L* 7.0 L TIBC Unsaturated IBC AST CK-MB (CK-2) Troponin I Total Protein Albumin Vitamin B12 Serum Folate Urine Glucose (UA) Urine Ketones Ur Random Sodium Ur Random Potassium Ur Random Chloride 01/21/19 01/21/19 01/21/19 22:00 22:45 23:22 WBC RBC Hgb Hct MCHC Absolute Neuts (auto) Retic Count ABG pH 7.05 L* ABG pCO2 at Pt Temp 15.9 L ABG pO2 at Pt Temp 118 H ABG HCO3 4.2 L ABG O2 Sat (Measured) ABG O2 Content 11.1 L ABG Base Excess -24.9 L VBG pH POC VBG pCO2 POC VBG pO2 VBG HCO3 VBG O2 Sat (Billie) VBG Base Excess Sodium 127 L Potassium Chloride 97 L Carbon Dioxide 7 L Anion Gap 24 H BUN 58.4 H Creatinine 2.4 H Random Glucose 951 H* Hemoglobin A1c % Lactic Acid 2.1 H Calcium 7.0 L TIBC Unsaturated IBC AST CK-MB (CK-2) Troponin I 1.11 H* Total Protein Albumin Vitamin B12 Serum Folate Urine Glucose (UA) Urine Ketones Ur Random Sodium Ur Random Potassium Ur Random Chloride 01/22/19 01/22/19 01/22/19 00:20 00:20 01:00 WBC 23.3 H RBC 2.68 L Hgb 7.8 L Hct 25.4 L MCHC 30.6 L Absolute Neuts (auto) Retic Count ABG pH ABG pCO2 at Pt Temp ABG pO2 at Pt Temp ABG HCO3 ABG O2 Sat (Measured) ABG O2 Content ABG Base Excess VBG pH POC VBG pCO2 POC VBG pO2 VBG HCO3 VBG O2 Sat (Billie) VBG Base Excess Sodium 128 L Potassium Chloride Carbon Dioxide 9 L Anion Gap 20 H BUN 57.5 H Creatinine 2.4 H Random Glucose 860 H* Hemoglobin A1c % Lactic Acid Calcium 7.1 L TIBC Unsaturated IBC AST CK-MB (CK-2) Troponin I Total Protein Albumin Vitamin B12 Serum Folate Urine Glucose (UA) 3+ H Urine Ketones 1+ H Ur Random Sodium Ur Random Potassium Ur Random Chloride 01/22/19 01/22/19 01/22/19 02:20 02:30 04:20 WBC RBC Hgb Hct MCHC Absolute Neuts (auto) Retic Count ABG pH 7.18 L* ABG pCO2 at Pt Temp 27.8 L ABG pO2 at Pt Temp 56.3 L ABG HCO3 10.0 L ABG O2 Sat (Measured) 86.5 L ABG O2 Content 8.3 L* ABG Base Excess -16.7 L VBG pH POC VBG pCO2 POC VBG pO2 VBG HCO3 VBG O2 Sat (Billie) VBG Base Excess Sodium 132 L 133 L Potassium Chloride Carbon Dioxide 11 L 14 L Anion Gap 19 H BUN 55.8 H 54.7 H Creatinine 2.5 H 2.5 H Random Glucose 744 H* 645 H* Hemoglobin A1c % Lactic Acid Calcium 7.1 L 7.3 L TIBC Unsaturated IBC AST CK-MB (CK-2) Troponin I 1.74 H* Total Protein Albumin Vitamin B12 Serum Folate Urine Glucose (UA) Urine Ketones Ur Random Sodium Ur Random Potassium Ur Random Chloride 01/22/19 01/22/19 01/22/19 05:42 06:00 06:30 WBC RBC Hgb Hct MCHC Absolute Neuts (auto) Retic Count 1.79 H ABG pH 7.24 L ABG pCO2 at Pt Temp 32.9 L ABG pO2 at Pt Temp 74.3 L ABG HCO3 13.5 L ABG O2 Sat (Measured) 94.2 L ABG O2 Content 10.4 L ABG Base Excess -12.5 L VBG pH POC VBG pCO2 POC VBG pO2 VBG HCO3 VBG O2 Sat (Billie) VBG Base Excess Sodium Potassium Chloride Carbon Dioxide Anion Gap BUN Creatinine Random Glucose Hemoglobin A1c % Lactic Acid Calcium TIBC 245 L Unsaturated IBC 188 L AST CK-MB (CK-2) Troponin I Total Protein Albumin Vitamin B12 > 6000 H Serum Folate 68 H Urine Glucose (UA) Urine Ketones Ur Random Sodium Ur Random Potassium Ur Random Chloride 01/22/19 01/22/19 01/22/19 06:30 06:30 06:30 WBC 18.5 H RBC 2.66 L Hgb 7.7 L Hct 23.7 L MCHC Absolute Neuts (auto) Retic Count ABG pH ABG pCO2 at Pt Temp ABG pO2 at Pt Temp ABG HCO3 ABG O2 Sat (Measured) ABG O2 Content ABG Base Excess VBG pH POC VBG pCO2 POC VBG pO2 VBG HCO3 VBG O2 Sat (Billie) VBG Base Excess Sodium Potassium Chloride Carbon Dioxide Anion Gap BUN Creatinine Random Glucose Hemoglobin A1c % 12.6 H Lactic Acid Calcium TIBC Unsaturated IBC AST CK-MB (CK-2) Troponin I 1.95 H* Total Protein Albumin Vitamin B12 Serum Folate Urine Glucose (UA) Urine Ketones Ur Random Sodium Ur Random Potassium Ur Random Chloride 01/22/19 01/22/19 01/22/19 06:30 08:15 10:15 WBC RBC Hgb Hct MCHC Absolute Neuts (auto) Retic Count ABG pH ABG pCO2 at Pt Temp ABG pO2 at Pt Temp ABG HCO3 ABG O2 Sat (Measured) ABG O2 Content ABG Base Excess VBG pH POC VBG pCO2 POC VBG pO2 VBG HCO3 VBG O2 Sat (Billie) VBG Base Excess Sodium Potassium Chloride 108 H Carbon Dioxide 16 L 17 L Anion Gap BUN 50.3 H 47.8 H Creatinine 2.4 H 2.2 H Random Glucose 511 H* 415 H* Hemoglobin A1c % Lactic Acid Calcium 7.2 L 7.4 L TIBC Unsaturated IBC AST CK-MB (CK-2) 6.6 H Troponin I 1.77 H* Total Protein Albumin Vitamin B12 Serum Folate Urine Glucose (UA) Urine Ketones Ur Random Sodium Ur Random Potassium Ur Random Chloride 01/22/19 01/22/19 01/22/19 10:30 18:00 18:00 WBC RBC Hgb Hct MCHC Absolute Neuts (auto) Retic Count ABG pH ABG pCO2 at Pt Temp ABG pO2 at Pt Temp ABG HCO3 ABG O2 Sat (Measured) ABG O2 Content ABG Base Excess VBG pH 7.23 L POC VBG pCO2 36.4 L POC VBG pO2 60.9 H VBG HCO3 14.7 L VBG O2 Sat (Billie) 89.3 H VBG Base Excess -11.4 L Sodium Potassium Chloride 114 H Carbon Dioxide 17 L Anion Gap BUN 43.1 H Creatinine 1.9 H Random Glucose 228 H Hemoglobin A1c % Lactic Acid Calcium 7.2 L TIBC Unsaturated IBC AST 78 H CK-MB (CK-2) Troponin I 1.14 H* Total Protein 4.8 L Albumin 2.4 L Vitamin B12 Serum Folate Urine Glucose (UA) Urine Ketones Ur Random Sodium 37 L Ur Random Potassium 21.0 L Ur Random Chloride 43 L 01/22/19 18:00 WBC 15.3 H RBC 2.51 L Hgb 7.3 L Hct 22.0 L MCHC Absolute Neuts (auto) 12.0 H Retic Count ABG pH ABG pCO2 at Pt Temp ABG pO2 at Pt Temp ABG HCO3 ABG O2 Sat (Measured) ABG O2 Content ABG Base Excess VBG pH POC VBG pCO2 POC VBG pO2 VBG HCO3 VBG O2 Sat (Billie) VBG Base Excess Sodium Potassium Chloride Carbon Dioxide Anion Gap BUN Creatinine Random Glucose Hemoglobin A1c % Lactic Acid Calcium TIBC Unsaturated IBC AST CK-MB (CK-2) Troponin I Total Protein Albumin Vitamin B12 Serum Folate Urine Glucose (UA) Urine Ketones Ur Random Sodium Ur Random Potassium Ur Random Chloride Laboratory Results - last 24 hr 01/21/19 01/21/19 01/21/19 18:00 19:00 20:05 WBC RBC Hgb Hct MCV MCH MCHC RDW Plt Count MPV Absolute Neuts (auto) Total Counted 100 Neutrophils % Neutrophils % (Manual) 71.0 Band Neutrophils % 5.0 Lymphocytes % Lymphocytes % (Manual) 17.0 Monocytes % Monocytes % (Manual) 5 Eosinophils % Basophils % Basophils % (Manual) 1.0 Myelocytes % (Man) 1 Nucleated RBC % Differential Comment Man diff performed Hypochromia 1+ Platelet Estimate Adequate Platelet Comment Polychromasia 1+ Macrocytosis 2+ Retic Count Anticoagulation Therapy No Result Required. Puncture Site Right radial ABG pH 6.94 L* ABG pCO2 at Pt Temp 14.0 L* ABG pO2 at Pt Temp 129 H ABG HCO3 2.8 L ABG O2 Sat (Measured) 96.7 ABG O2 Content 10.6 L ABG Base Excess -27.7 L Terell Test Positive VBG pH POC VBG pCO2 POC VBG pO2 VBG HCO3 VBG O2 Sat (Billie) VBG Base Excess O2 Delivery Device No Result Required. Oxygen Flow Rate No Result Required. Vent Mode No Result Required. Vent Rate No Result Required. Mechanical Rate No Result Required. Pressure Support Vent No Result Required. Sodium Potassium Chloride Carbon Dioxide Anion Gap BUN Creatinine Est GFR (CKD-EPI)AfAm Est GFR (CKD-EPI)NonAf POC Glucometer Random Glucose Hemoglobin A1c % Lactic Acid Calcium Phosphorus Magnesium Iron TIBC Iron Saturation Unsaturated IBC Ferritin Total Bilirubin AST ALT Alkaline Phosphatase Creatine Kinase Creatine Kinase Index CK-MB (CK-2) Troponin I Total Protein Albumin Triglycerides Cholesterol Total LDL Cholesterol HDL Cholesterol Vitamin B12 Serum Folate Urine Color Urine Appearance Urine pH Ur Specific Harrison Urine Protein Urine Glucose (UA) Urine Ketones Urine Blood Urine Nitrite Urine Bilirubin Urine Urobilinogen Ur Leukocyte Esterase Urine WBC (Auto) Urine RBC (Auto) Urine Casts (Auto) U Epithel Cells (Auto) Urine Bacteria (Auto) Ur Random Sodium Ur Random Potassium Ur Random Chloride Opiates Screen Negative Methadone Screen Negative Barbiturate Screen Negative Phencyclidine Screen Negative Ur Amphetamines Screen Negative MDMA (Ecstasy) Screen Negative Benzodiazepines Screen Negative Cocaine Screen Negative U Marijuana (THC) Screen Negative 01/21/19 01/21/19 01/21/19 20:30 20:30 22:00 WBC RBC Hgb Hct MCV MCH MCHC RDW Plt Count MPV Absolute Neuts (auto) Total Counted Neutrophils % Neutrophils % (Manual) Band Neutrophils % Lymphocytes % Lymphocytes % (Manual) Monocytes % Monocytes % (Manual) Eosinophils % Basophils % Basophils % (Manual) Myelocytes % (Man) Nucleated RBC % Differential Comment Hypochromia Platelet Estimate Platelet Comment Polychromasia Macrocytosis Retic Count Anticoagulation Therapy Puncture Site Right radial ABG pH 7.05 L* ABG pCO2 at Pt Temp 15.9 L ABG pO2 at Pt Temp 118 H ABG HCO3 4.2 L ABG O2 Sat (Measured) 97.1 ABG O2 Content 11.1 L ABG Base Excess -24.9 L Terell Test Positive VBG pH POC VBG pCO2 POC VBG pO2 VBG HCO3 VBG O2 Sat (Billie) VBG Base Excess O2 Delivery Device Room air Oxygen Flow Rate No Vent Mode Vent Rate Mechanical Rate Pressure Support Vent Sodium 126 L 123 L Potassium 5.5 H 5.8 H Chloride 95 L 92 L Carbon Dioxide 6 L 6 L Anion Gap 25 H 25 H BUN 59.8 H 62.1 H Creatinine 2.5 H 2.5 H Est GFR (CKD-EPI)AfAm 28.31 28.31 Est GFR (CKD-EPI)NonAf 24.43 24.43 POC Glucometer Random Glucose 1062 H* 1187 H* Hemoglobin A1c % Lactic Acid Calcium 6.9 L* 7.0 L Phosphorus Magnesium Iron TIBC Iron Saturation Unsaturated IBC Ferritin Total Bilirubin AST ALT Alkaline Phosphatase Creatine Kinase Creatine Kinase Index CK-MB (CK-2) Troponin I Total Protein Albumin Triglycerides Cholesterol Total LDL Cholesterol HDL Cholesterol Vitamin B12 Serum Folate Urine Color Urine Appearance Urine pH Ur Specific Harrison Urine Protein Urine Glucose (UA) Urine Ketones Urine Blood Urine Nitrite Urine Bilirubin Urine Urobilinogen Ur Leukocyte Esterase Urine WBC (Auto) Urine RBC (Auto) Urine Casts (Auto) U Epithel Cells (Auto) Urine Bacteria (Auto) Ur Random Sodium Ur Random Potassium Ur Random Chloride Opiates Screen Methadone Screen Barbiturate Screen Phencyclidine Screen Ur Amphetamines Screen MDMA (Ecstasy) Screen Benzodiazepines Screen Cocaine Screen U Marijuana (THC) Screen 01/21/19 01/21/19 01/21/19 22:45 23:22 23:36 WBC RBC Hgb Hct MCV MCH MCHC RDW Plt Count MPV Absolute Neuts (auto) Total Counted Neutrophils % Neutrophils % (Manual) Band Neutrophils % Lymphocytes % Lymphocytes % (Manual) Monocytes % Monocytes % (Manual) Eosinophils % Basophils % Basophils % (Manual) Myelocytes % (Man) Nucleated RBC % Differential Comment Hypochromia Platelet Estimate Platelet Comment Polychromasia Macrocytosis Retic Count Anticoagulation Therapy Puncture Site ABG pH ABG pCO2 at Pt Temp ABG pO2 at Pt Temp ABG HCO3 ABG O2 Sat (Measured) ABG O2 Content ABG Base Excess Terell Test VBG pH POC VBG pCO2 POC VBG pO2 VBG HCO3 VBG O2 Sat (Billie) VBG Base Excess O2 Delivery Device Oxygen Flow Rate Vent Mode Vent Rate Mechanical Rate Pressure Support Vent Sodium 127 L Potassium 5.0 Chloride 97 L Carbon Dioxide 7 L Anion Gap 24 H BUN 58.4 H Creatinine 2.4 H Est GFR (CKD-EPI)AfAm 29.75 Est GFR (CKD-EPI)NonAf 25.66 POC Glucometer > 600 Random Glucose 951 H* Hemoglobin A1c % Lactic Acid 2.1 H Calcium 7.0 L Phosphorus Magnesium Iron TIBC Iron Saturation Unsaturated IBC Ferritin Total Bilirubin AST ALT Alkaline Phosphatase Creatine Kinase Creatine Kinase Index CK-MB (CK-2) Troponin I 1.11 H* Total Protein Albumin Triglycerides Cholesterol Total LDL Cholesterol HDL Cholesterol Vitamin B12 Serum Folate Urine Color Urine Appearance Urine pH Ur Specific Harrison Urine Protein Urine Glucose (UA) Urine Ketones Urine Blood Urine Nitrite Urine Bilirubin Urine Urobilinogen Ur Leukocyte Esterase Urine WBC (Auto) Urine RBC (Auto) Urine Casts (Auto) U Epithel Cells (Auto) Urine Bacteria (Auto) Ur Random Sodium Ur Random Potassium Ur Random Chloride Opiates Screen Methadone Screen Barbiturate Screen Phencyclidine Screen Ur Amphetamines Screen MDMA (Ecstasy) Screen Benzodiazepines Screen Cocaine Screen U Marijuana (THC) Screen 01/22/19 01/22/19 01/22/19 00:20 00:20 00:35 WBC 23.3 H RBC 2.68 L Hgb 7.8 L Hct 25.4 L MCV 94.5 D MCH 28.9 MCHC 30.6 L RDW 13.6 Plt Count 330 D MPV 9.8 Absolute Neuts (auto) Total Counted Neutrophils % Neutrophils % (Manual) Band Neutrophils % Lymphocytes % Lymphocytes % (Manual) Monocytes % Monocytes % (Manual) Eosinophils % Basophils % Basophils % (Manual) Myelocytes % (Man) Nucleated RBC % Differential Comment Hypochromia Platelet Estimate Platelet Comment Polychromasia Macrocytosis Retic Count Anticoagulation Therapy Puncture Site ABG pH ABG pCO2 at Pt Temp ABG pO2 at Pt Temp ABG HCO3 ABG O2 Sat (Measured) ABG O2 Content ABG Base Excess Terell Test VBG pH POC VBG pCO2 POC VBG pO2 VBG HCO3 VBG O2 Sat (Billie) VBG Base Excess O2 Delivery Device Oxygen Flow Rate Vent Mode Vent Rate Mechanical Rate Pressure Support Vent Sodium 128 L Potassium 4.8 Chloride 99 Carbon Dioxide 9 L Anion Gap 20 H BUN 57.5 H Creatinine 2.4 H Est GFR (CKD-EPI)AfAm 29.75 Est GFR (CKD-EPI)NonAf 25.66 POC Glucometer > 600 Random Glucose 860 H* Hemoglobin A1c % Lactic Acid Calcium 7.1 L Phosphorus Magnesium Iron TIBC Iron Saturation Unsaturated IBC Ferritin Total Bilirubin AST ALT Alkaline Phosphatase Creatine Kinase Creatine Kinase Index CK-MB (CK-2) Troponin I Total Protein Albumin Triglycerides Cholesterol Total LDL Cholesterol HDL Cholesterol Vitamin B12 Serum Folate Urine Color Urine Appearance Urine pH Ur Specific Harrison Urine Protein Urine Glucose (UA) Urine Ketones Urine Blood Urine Nitrite Urine Bilirubin Urine Urobilinogen Ur Leukocyte Esterase Urine WBC (Auto) Urine RBC (Auto) Urine Casts (Auto) U Epithel Cells (Auto) Urine Bacteria (Auto) Ur Random Sodium Ur Random Potassium Ur Random Chloride Opiates Screen Methadone Screen Barbiturate Screen Phencyclidine Screen Ur Amphetamines Screen MDMA (Ecstasy) Screen Benzodiazepines Screen Cocaine Screen U Marijuana (THC) Screen 01/22/19 01/22/19 01/22/19 01:00 01:28 02:20 WBC RBC Hgb Hct MCV MCH MCHC RDW Plt Count MPV Absolute Neuts (auto) Total Counted Neutrophils % Neutrophils % (Manual) Band Neutrophils % Lymphocytes % Lymphocytes % (Manual) Monocytes % Monocytes % (Manual) Eosinophils % Basophils % Basophils % (Manual) Myelocytes % (Man) Nucleated RBC % Differential Comment Hypochromia Platelet Estimate Platelet Comment Polychromasia Macrocytosis Retic Count Anticoagulation Therapy No Result Required. Puncture Site Right radial ABG pH 7.18 L* ABG pCO2 at Pt Temp 27.8 L ABG pO2 at Pt Temp 56.3 L ABG HCO3 10.0 L ABG O2 Sat (Measured) 86.5 L ABG O2 Content 8.3 L* ABG Base Excess -16.7 L Terell Test Positive VBG pH POC VBG pCO2 POC VBG pO2 VBG HCO3 VBG O2 Sat (Billie) VBG Base Excess O2 Delivery Device Room air Oxygen Flow Rate 21% Vent Mode No Result Required. Vent Rate No Result Required. Mechanical Rate No Result Required. Pressure Support Vent No Result Required. Sodium Potassium Chloride Carbon Dioxide Anion Gap BUN Creatinine Est GFR (CKD-EPI)AfAm Est GFR (CKD-EPI)NonAf POC Glucometer > 600 Random Glucose Hemoglobin A1c % Lactic Acid Calcium Phosphorus Magnesium Iron TIBC Iron Saturation Unsaturated IBC Ferritin Total Bilirubin AST ALT Alkaline Phosphatase Creatine Kinase Creatine Kinase Index CK-MB (CK-2) Troponin I Total Protein Albumin Triglycerides Cholesterol Total LDL Cholesterol HDL Cholesterol Vitamin B12 Serum Folate Urine Color Yellow Urine Appearance Clear Urine pH 5.0 Ur Specific Harrison 1.021 Urine Protein Trace Urine Glucose (UA) 3+ H Urine Ketones 1+ H Urine Blood Trace Urine Nitrite Negative Urine Bilirubin Negative Urine Urobilinogen 0.2 Ur Leukocyte Esterase Negative Urine WBC (Auto) 3 Urine RBC (Auto) 10 Urine Casts (Auto) 3 U Epithel Cells (Auto) 4 Urine Bacteria (Auto) 30 Ur Random Sodium Ur Random Potassium Ur Random Chloride Opiates Screen Methadone Screen Barbiturate Screen Phencyclidine Screen Ur Amphetamines Screen MDMA (Ecstasy) Screen Benzodiazepines Screen Cocaine Screen U Marijuana (THC) Screen 01/22/19 01/22/19 01/22/19 02:30 02:41 03:09 WBC RBC Hgb Hct MCV MCH MCHC RDW Plt Count MPV Absolute Neuts (auto) Total Counted Neutrophils % Neutrophils % (Manual) Band Neutrophils % Lymphocytes % Lymphocytes % (Manual) Monocytes % Monocytes % (Manual) Eosinophils % Basophils % Basophils % (Manual) Myelocytes % (Man) Nucleated RBC % Differential Comment Hypochromia Platelet Estimate Platelet Comment Polychromasia Macrocytosis Retic Count Anticoagulation Therapy Puncture Site ABG pH ABG pCO2 at Pt Temp ABG pO2 at Pt Temp ABG HCO3 ABG O2 Sat (Measured) ABG O2 Content ABG Base Excess Terell Test VBG pH POC VBG pCO2 POC VBG pO2 VBG HCO3 VBG O2 Sat (Billie) VBG Base Excess O2 Delivery Device Oxygen Flow Rate Vent Mode Vent Rate Mechanical Rate Pressure Support Vent Sodium 132 L Potassium 4.7 Chloride 102 Carbon Dioxide 11 L Anion Gap 19 H BUN 55.8 H Creatinine 2.5 H Est GFR (CKD-EPI)AfAm 28.31 Est GFR (CKD-EPI)NonAf 24.43 POC Glucometer 556 > 600 Random Glucose 744 H* Hemoglobin A1c % Lactic Acid Calcium 7.1 L Phosphorus Magnesium Iron TIBC Iron Saturation Unsaturated IBC Ferritin Total Bilirubin AST ALT Alkaline Phosphatase Creatine Kinase Creatine Kinase Index CK-MB (CK-2) Troponin I 1.74 H* Total Protein Albumin Triglycerides Cholesterol Total LDL Cholesterol HDL Cholesterol Vitamin B12 Serum Folate Urine Color Urine Appearance Urine pH Ur Specific Harrison Urine Protein Urine Glucose (UA) Urine Ketones Urine Blood Urine Nitrite Urine Bilirubin Urine Urobilinogen Ur Leukocyte Esterase Urine WBC (Auto) Urine RBC (Auto) Urine Casts (Auto) U Epithel Cells (Auto) Urine Bacteria (Auto) Ur Random Sodium Ur Random Potassium Ur Random Chloride Opiates Screen Methadone Screen Barbiturate Screen Phencyclidine Screen Ur Amphetamines Screen MDMA (Ecstasy) Screen Benzodiazepines Screen Cocaine Screen U Marijuana (THC) Screen 01/22/19 01/22/19 01/22/19 04:20 04:40 05:42 WBC RBC Hgb Hct MCV MCH MCHC RDW Plt Count MPV Absolute Neuts (auto) Total Counted Neutrophils % Neutrophils % (Manual) Band Neutrophils % Lymphocytes % Lymphocytes % (Manual) Monocytes % Monocytes % (Manual) Eosinophils % Basophils % Basophils % (Manual) Myelocytes % (Man) Nucleated RBC % Differential Comment Hypochromia Platelet Estimate Platelet Comment Polychromasia Macrocytosis Retic Count Anticoagulation Therapy Puncture Site Right radial ABG pH 7.24 L ABG pCO2 at Pt Temp 32.9 L ABG pO2 at Pt Temp 74.3 L ABG HCO3 13.5 L ABG O2 Sat (Measured) 94.2 L ABG O2 Content 10.4 L ABG Base Excess -12.5 L Terell Test Positive VBG pH POC VBG pCO2 POC VBG pO2 VBG HCO3 VBG O2 Sat (Billie) VBG Base Excess O2 Delivery Device Room air Oxygen Flow Rate 21% Vent Mode Vent Rate Mechanical Rate Pressure Support Vent Sodium 133 L Potassium 4.3 Chloride 104 Carbon Dioxide 14 L Anion Gap 14 BUN 54.7 H Creatinine 2.5 H Est GFR (CKD-EPI)AfAm 28.31 Est GFR (CKD-EPI)NonAf 24.43 POC Glucometer 557 Random Glucose 645 H* Hemoglobin A1c % Lactic Acid Calcium 7.3 L Phosphorus Magnesium Iron TIBC Iron Saturation Unsaturated IBC Ferritin Total Bilirubin AST ALT Alkaline Phosphatase Creatine Kinase Creatine Kinase Index CK-MB (CK-2) Troponin I Total Protein Albumin Triglycerides Cholesterol Total LDL Cholesterol HDL Cholesterol Vitamin B12 Serum Folate Urine Color Urine Appearance Urine pH Ur Specific Harrison Urine Protein Urine Glucose (UA) Urine Ketones Urine Blood Urine Nitrite Urine Bilirubin Urine Urobilinogen Ur Leukocyte Esterase Urine WBC (Auto) Urine RBC (Auto) Urine Casts (Auto) U Epithel Cells (Auto) Urine Bacteria (Auto) Ur Random Sodium Ur Random Potassium Ur Random Chloride Opiates Screen Methadone Screen Barbiturate Screen Phencyclidine Screen Ur Amphetamines Screen MDMA (Ecstasy) Screen Benzodiazepines Screen Cocaine Screen U Marijuana (THC) Screen 01/22/19 01/22/19 01/22/19 06:00 06:29 06:30 WBC RBC Hgb Hct MCV MCH MCHC RDW Plt Count MPV Absolute Neuts (auto) Total Counted Neutrophils % Neutrophils % (Manual) Band Neutrophils % Lymphocytes % Lymphocytes % (Manual) Monocytes % Monocytes % (Manual) Eosinophils % Basophils % Basophils % (Manual) Myelocytes % (Man) Nucleated RBC % Differential Comment Hypochromia Platelet Estimate Platelet Comment Polychromasia Macrocytosis Retic Count 1.79 H Anticoagulation Therapy Puncture Site ABG pH ABG pCO2 at Pt Temp ABG pO2 at Pt Temp ABG HCO3 ABG O2 Sat (Measured) ABG O2 Content ABG Base Excess Terell Test VBG pH POC VBG pCO2 POC VBG pO2 VBG HCO3 VBG O2 Sat (Billie) VBG Base Excess O2 Delivery Device Oxygen Flow Rate Vent Mode Vent Rate Mechanical Rate Pressure Support Vent Sodium Potassium Chloride Carbon Dioxide Anion Gap BUN Creatinine Est GFR (CKD-EPI)AfAm Est GFR (CKD-EPI)NonAf POC Glucometer 485 Random Glucose Hemoglobin A1c % Lactic Acid Calcium Phosphorus 4.1 Magnesium 1.9 Iron 57 TIBC 245 L Iron Saturation 23 Unsaturated IBC 188 L Ferritin 107.8 Total Bilirubin AST ALT Alkaline Phosphatase Creatine Kinase Creatine Kinase Index CK-MB (CK-2) Troponin I Total Protein Albumin Triglycerides Cholesterol Total LDL Cholesterol HDL Cholesterol Vitamin B12 > 6000 H Serum Folate 68 H Urine Color Urine Appearance Urine pH Ur Specific Harrison Urine Protein Urine Glucose (UA) Urine Ketones Urine Blood Urine Nitrite Urine Bilirubin Urine Urobilinogen Ur Leukocyte Esterase Urine WBC (Auto) Urine RBC (Auto) Urine Casts (Auto) U Epithel Cells (Auto) Urine Bacteria (Auto) Ur Random Sodium Ur Random Potassium Ur Random Chloride Opiates Screen Methadone Screen Barbiturate Screen Phencyclidine Screen Ur Amphetamines Screen MDMA (Ecstasy) Screen Benzodiazepines Screen Cocaine Screen U Marijuana (THC) Screen 01/22/19 01/22/19 01/22/19 06:30 06:30 06:30 WBC 18.5 H RBC 2.66 L Hgb 7.7 L Hct 23.7 L MCV 89.3 MCH 28.8 MCHC 32.3 RDW 13.3 Plt Count 305 MPV 9.5 Absolute Neuts (auto) Total Counted Neutrophils % Neutrophils % (Manual) Band Neutrophils % Lymphocytes % Lymphocytes % (Manual) Monocytes % Monocytes % (Manual) Eosinophils % Basophils % Basophils % (Manual) Myelocytes % (Man) Nucleated RBC % Differential Comment Hypochromia Platelet Estimate Platelet Comment Polychromasia Macrocytosis Retic Count Anticoagulation Therapy Puncture Site ABG pH ABG pCO2 at Pt Temp ABG pO2 at Pt Temp ABG HCO3 ABG O2 Sat (Measured) ABG O2 Content ABG Base Excess Terell Test VBG pH POC VBG pCO2 POC VBG pO2 VBG HCO3 VBG O2 Sat (Billie) VBG Base Excess O2 Delivery Device Oxygen Flow Rate Vent Mode Vent Rate Mechanical Rate Pressure Support Vent Sodium Potassium Chloride Carbon Dioxide Anion Gap BUN Creatinine Est GFR (CKD-EPI)AfAm Est GFR (CKD-EPI)NonAf POC Glucometer Random Glucose Hemoglobin A1c % 12.6 H Lactic Acid Calcium Phosphorus Magnesium Iron TIBC Iron Saturation Unsaturated IBC Ferritin Total Bilirubin AST ALT Alkaline Phosphatase Creatine Kinase Creatine Kinase Index CK-MB (CK-2) Troponin I 1.95 H* Total Protein Albumin Triglycerides Cholesterol Total LDL Cholesterol HDL Cholesterol Vitamin B12 Serum Folate Urine Color Urine Appearance Urine pH Ur Specific Harrison Urine Protein Urine Glucose (UA) Urine Ketones Urine Blood Urine Nitrite Urine Bilirubin Urine Urobilinogen Ur Leukocyte Esterase Urine WBC (Auto) Urine RBC (Auto) Urine Casts (Auto) U Epithel Cells (Auto) Urine Bacteria (Auto) Ur Random Sodium Ur Random Potassium Ur Random Chloride Opiates Screen Methadone Screen Barbiturate Screen Phencyclidine Screen Ur Amphetamines Screen MDMA (Ecstasy) Screen Benzodiazepines Screen Cocaine Screen U Marijuana (THC) Screen 01/22/19 01/22/19 01/22/19 06:30 08:10 08:15 WBC RBC Hgb Hct MCV MCH MCHC RDW Plt Count MPV Absolute Neuts (auto) Total Counted Neutrophils % Neutrophils % (Manual) Band Neutrophils % Lymphocytes % Lymphocytes % (Manual) Monocytes % Monocytes % (Manual) Eosinophils % Basophils % Basophils % (Manual) Myelocytes % (Man) Nucleated RBC % Differential Comment Hypochromia Platelet Estimate Platelet Comment Polychromasia Macrocytosis Retic Count Anticoagulation Therapy Puncture Site ABG pH ABG pCO2 at Pt Temp ABG pO2 at Pt Temp ABG HCO3 ABG O2 Sat (Measured) ABG O2 Content ABG Base Excess Terell Test VBG pH POC VBG pCO2 POC VBG pO2 VBG HCO3 VBG O2 Sat (Billie) VBG Base Excess O2 Delivery Device Oxygen Flow Rate Vent Mode Vent Rate Mechanical Rate Pressure Support Vent Sodium 136 137 Potassium 4.1 3.8 Chloride 107 108 H Carbon Dioxide 16 L 17 L Anion Gap 14 12 BUN 50.3 H 47.8 H Creatinine 2.4 H 2.2 H Est GFR (CKD-EPI)AfAm 29.75 33.05 Est GFR (CKD-EPI)NonAf 25.66 28.51 POC Glucometer 406 Random Glucose 511 H* 415 H* Hemoglobin A1c % Lactic Acid Calcium 7.2 L 7.4 L Phosphorus Magnesium Iron TIBC Iron Saturation Unsaturated IBC Ferritin Total Bilirubin AST ALT Alkaline Phosphatase Creatine Kinase Creatine Kinase Index CK-MB (CK-2) Troponin I Total Protein Albumin Triglycerides 118 Cholesterol 90 Total LDL Cholesterol 32 HDL Cholesterol 50 Vitamin B12 Serum Folate Urine Color Urine Appearance Urine pH Ur Specific Harrison Urine Protein Urine Glucose (UA) Urine Ketones Urine Blood Urine Nitrite Urine Bilirubin Urine Urobilinogen Ur Leukocyte Esterase Urine WBC (Auto) Urine RBC (Auto) Urine Casts (Auto) U Epithel Cells (Auto) Urine Bacteria (Auto) Ur Random Sodium Ur Random Potassium Ur Random Chloride Opiates Screen Methadone Screen Barbiturate Screen Phencyclidine Screen Ur Amphetamines Screen MDMA (Ecstasy) Screen Benzodiazepines Screen Cocaine Screen U Marijuana (THC) Screen 01/22/19 01/22/19 01/22/19 09:05 09:55 10:15 WBC RBC Hgb Hct MCV MCH MCHC RDW Plt Count MPV Absolute Neuts (auto) Total Counted Neutrophils % Neutrophils % (Manual) Band Neutrophils % Lymphocytes % Lymphocytes % (Manual) Monocytes % Monocytes % (Manual) Eosinophils % Basophils % Basophils % (Manual) Myelocytes % (Man) Nucleated RBC % Differential Comment Hypochromia Platelet Estimate Platelet Comment Polychromasia Macrocytosis Retic Count Anticoagulation Therapy Puncture Site ABG pH ABG pCO2 at Pt Temp ABG pO2 at Pt Temp ABG HCO3 ABG O2 Sat (Measured) ABG O2 Content ABG Base Excess Terell Test VBG pH POC VBG pCO2 POC VBG pO2 VBG HCO3 VBG O2 Sat (Billie) VBG Base Excess O2 Delivery Device Oxygen Flow Rate Vent Mode Vent Rate Mechanical Rate Pressure Support Vent Sodium Potassium Chloride Carbon Dioxide Anion Gap BUN Creatinine Est GFR (CKD-EPI)AfAm Est GFR (CKD-EPI)NonAf POC Glucometer 387 332 Random Glucose Hemoglobin A1c % Lactic Acid Calcium Phosphorus Magnesium Iron TIBC Iron Saturation Unsaturated IBC Ferritin Total Bilirubin AST ALT Alkaline Phosphatase Creatine Kinase 166 Creatine Kinase Index 3.9 CK-MB (CK-2) 6.6 H Troponin I 1.77 H* Total Protein Albumin Triglycerides Cholesterol Total LDL Cholesterol HDL Cholesterol Vitamin B12 Serum Folate Urine Color Urine Appearance Urine pH Ur Specific Harrison Urine Protein Urine Glucose (UA) Urine Ketones Urine Blood Urine Nitrite Urine Bilirubin Urine Urobilinogen Ur Leukocyte Esterase Urine WBC (Auto) Urine RBC (Auto) Urine Casts (Auto) U Epithel Cells (Auto) Urine Bacteria (Auto) Ur Random Sodium Ur Random Potassium Ur Random Chloride Opiates Screen Methadone Screen Barbiturate Screen Phencyclidine Screen Ur Amphetamines Screen MDMA (Ecstasy) Screen Benzodiazepines Screen Cocaine Screen U Marijuana (THC) Screen 01/22/19 01/22/19 01/22/19 10:30 10:53 12:03 WBC RBC Hgb Hct MCV MCH MCHC RDW Plt Count MPV Absolute Neuts (auto) Total Counted Neutrophils % Neutrophils % (Manual) Band Neutrophils % Lymphocytes % Lymphocytes % (Manual) Monocytes % Monocytes % (Manual) Eosinophils % Basophils % Basophils % (Manual) Myelocytes % (Man) Nucleated RBC % Differential Comment Hypochromia Platelet Estimate Platelet Comment Polychromasia Macrocytosis Retic Count Anticoagulation Therapy Puncture Site ABG pH ABG pCO2 at Pt Temp ABG pO2 at Pt Temp ABG HCO3 ABG O2 Sat (Measured) ABG O2 Content ABG Base Excess Terell Test VBG pH POC VBG pCO2 POC VBG pO2 VBG HCO3 VBG O2 Sat (Billie) VBG Base Excess O2 Delivery Device Oxygen Flow Rate Vent Mode Vent Rate Mechanical Rate Pressure Support Vent Sodium Potassium Chloride Carbon Dioxide Anion Gap BUN Creatinine Est GFR (CKD-EPI)AfAm Est GFR (CKD-EPI)NonAf POC Glucometer 282 180 Random Glucose Hemoglobin A1c % Lactic Acid Calcium Phosphorus Magnesium Iron TIBC Iron Saturation Unsaturated IBC Ferritin Total Bilirubin AST ALT Alkaline Phosphatase Creatine Kinase Creatine Kinase Index CK-MB (CK-2) Troponin I Total Protein Albumin Triglycerides Cholesterol Total LDL Cholesterol HDL Cholesterol Vitamin B12 Serum Folate Urine Color Urine Appearance Urine pH Ur Specific Harrison Urine Protein Urine Glucose (UA) Urine Ketones Urine Blood Urine Nitrite Urine Bilirubin Urine Urobilinogen Ur Leukocyte Esterase Urine WBC (Auto) Urine RBC (Auto) Urine Casts (Auto) U Epithel Cells (Auto) Urine Bacteria (Auto) Ur Random Sodium 37 L Ur Random Potassium 21.0 L Ur Random Chloride 43 L Opiates Screen Methadone Screen Barbiturate Screen Phencyclidine Screen Ur Amphetamines Screen MDMA (Ecstasy) Screen Benzodiazepines Screen Cocaine Screen U Marijuana (THC) Screen 01/22/19 01/22/19 01/22/19 13:12 14:41 15:28 WBC RBC Hgb Hct MCV MCH MCHC RDW Plt Count MPV Absolute Neuts (auto) Total Counted Neutrophils % Neutrophils % (Manual) Band Neutrophils % Lymphocytes % Lymphocytes % (Manual) Monocytes % Monocytes % (Manual) Eosinophils % Basophils % Basophils % (Manual) Myelocytes % (Man) Nucleated RBC % Differential Comment Hypochromia Platelet Estimate Platelet Comment Polychromasia Macrocytosis Retic Count Anticoagulation Therapy Puncture Site ABG pH ABG pCO2 at Pt Temp ABG pO2 at Pt Temp ABG HCO3 ABG O2 Sat (Measured) ABG O2 Content ABG Base Excess Terell Test VBG pH POC VBG pCO2 POC VBG pO2 VBG HCO3 VBG O2 Sat (Billie) VBG Base Excess O2 Delivery Device Oxygen Flow Rate Vent Mode Vent Rate Mechanical Rate Pressure Support Vent Sodium Potassium Chloride Carbon Dioxide Anion Gap BUN Creatinine Est GFR (CKD-EPI)AfAm Est GFR (CKD-EPI)NonAf POC Glucometer 166 224 276 Random Glucose Hemoglobin A1c % Lactic Acid Calcium Phosphorus Magnesium Iron TIBC Iron Saturation Unsaturated IBC Ferritin Total Bilirubin AST ALT Alkaline Phosphatase Creatine Kinase Creatine Kinase Index CK-MB (CK-2) Troponin I Total Protein Albumin Triglycerides Cholesterol Total LDL Cholesterol HDL Cholesterol Vitamin B12 Serum Folate Urine Color Urine Appearance Urine pH Ur Specific [place] Urine Protein Urine Glucose (UA) Urine Ketones Urine Blood Urine Nitrite Urine Bilirubin Urine Urobilinogen Ur Leukocyte Esterase Urine WBC (Auto) Urine RBC (Auto) Urine Casts (Auto) U Epithel Cells (Auto) Urine Bacteria (Auto) Ur Random Sodium Ur Random Potassium Ur Random Chloride Opiates Screen Methadone Screen Barbiturate Screen Phencyclidine Screen Ur Amphetamines Screen MDMA (Ecstasy) Screen Benzodiazepines Screen Cocaine Screen U Marijuana (THC) Screen 01/22/19 01/22/19 01/22/19 16:55 18:00 18:00 WBC RBC Hgb Hct MCV MCH MCHC RDW Plt Count MPV Absolute Neuts (auto) Total Counted Neutrophils % Neutrophils % (Manual) Band Neutrophils % Lymphocytes % Lymphocytes % (Manual) Monocytes % Monocytes % (Manual) Eosinophils % Basophils % Basophils % (Manual) Myelocytes % (Man) Nucleated RBC % Differential Comment Hypochromia Platelet Estimate Platelet Comment Polychromasia Macrocytosis Retic Count Anticoagulation Therapy Puncture Site ABG pH ABG pCO2 at Pt Temp ABG pO2 at Pt Temp ABG HCO3 ABG O2 Sat (Measured) ABG O2 Content ABG Base Excess Terell Test VBG pH 7.23 L POC VBG pCO2 36.4 L POC VBG pO2 60.9 H VBG HCO3 14.7 L VBG O2 Sat (Billie) 89.3 H VBG Base Excess -11.4 L O2 Delivery Device Oxygen Flow Rate Vent Mode Vent Rate Mechanical Rate Pressure Support Vent Sodium 141 Potassium 3.5 Chloride 114 H Carbon Dioxide 17 L Anion Gap 11 BUN 43.1 H Creatinine 1.9 H Est GFR (CKD-EPI)AfAm 39.45 Est GFR (CKD-EPI)NonAf 34.04 POC Glucometer 274 Random Glucose 228 H Hemoglobin A1c % Lactic Acid Calcium 7.2 L Phosphorus Magnesium Iron TIBC Iron Saturation Unsaturated IBC Ferritin Total Bilirubin 0.3 AST 78 H ALT 61 Alkaline Phosphatase 94 Creatine Kinase 143 Creatine Kinase Index CK-MB (CK-2) Troponin I 1.14 H* Total Protein 4.8 L Albumin 2.4 L Triglycerides Cholesterol Total LDL Cholesterol HDL Cholesterol Vitamin B12 Serum Folate Urine Color Urine Appearance Urine pH Ur Specific Harrison Urine Protein Urine Glucose (UA) Urine Ketones Urine Blood Urine Nitrite Urine Bilirubin Urine Urobilinogen Ur Leukocyte Esterase Urine WBC (Auto) Urine RBC (Auto) Urine Casts (Auto) U Epithel Cells (Auto) Urine Bacteria (Auto) Ur Random Sodium Ur Random Potassium Ur Random Chloride Opiates Screen Methadone Screen Barbiturate Screen Phencyclidine Screen Ur Amphetamines Screen MDMA (Ecstasy) Screen Benzodiazepines Screen Cocaine Screen U Marijuana (THC) Screen 01/22/19 01/22/19 18:00 18:01 WBC 15.3 H RBC 2.51 L Hgb 7.3 L Hct 22.0 L MCV 87.7 MCH 29.0 MCHC 33.0 RDW 13.3 Plt Count 277 MPV 8.5 D Absolute Neuts (auto) 12.0 H Total Counted Neutrophils % 78.3 D Neutrophils % (Manual) Band Neutrophils % Lymphocytes % 15.6 D Lymphocytes % (Manual) Monocytes % 5.5 Monocytes % (Manual) Eosinophils % 0.1 D Basophils % 0.5 Basophils % (Manual) Myelocytes % (Man) Nucleated RBC % 0 Differential Comment Hypochromia Platelet Estimate Platelet Comment Polychromasia Macrocytosis Retic Count Anticoagulation Therapy Puncture Site ABG pH ABG pCO2 at Pt Temp ABG pO2 at Pt Temp ABG HCO3 ABG O2 Sat (Measured) ABG O2 Content ABG Base Excess Terell Test VBG pH POC VBG pCO2 POC VBG pO2 VBG HCO3 VBG O2 Sat (Billie) VBG Base Excess O2 Delivery Device Oxygen Flow Rate Vent Mode Vent Rate Mechanical Rate Pressure Support Vent Sodium Potassium Chloride Carbon Dioxide Anion Gap BUN Creatinine Est GFR (CKD-EPI)AfAm Est GFR (CKD-EPI)NonAf POC Glucometer 239 Random Glucose Hemoglobin A1c % Lactic Acid Calcium Phosphorus Magnesium Iron TIBC Iron Saturation Unsaturated IBC Ferritin Total Bilirubin AST ALT Alkaline Phosphatase Creatine Kinase Creatine Kinase Index CK-MB (CK-2) Troponin I Total Protein Albumin Triglycerides Cholesterol Total LDL Cholesterol HDL Cholesterol Vitamin B12 Serum Folate Urine Color Urine Appearance Urine pH Ur Specific [place] Urine Protein Urine Glucose (UA) Urine Ketones Urine Blood Urine Nitrite Urine Bilirubin Urine Urobilinogen Ur Leukocyte Esterase Urine WBC (Auto) Urine RBC (Auto) Urine Casts (Auto) U Epithel Cells (Auto) Urine Bacteria (Auto) Ur Random Sodium Ur Random Potassium Ur Random Chloride Opiates Screen Methadone Screen Barbiturate Screen Phencyclidine Screen Ur Amphetamines Screen MDMA (Ecstasy) Screen Benzodiazepines Screen Cocaine Screen U Marijuana (THC) Screen plan: bgm novolog scale levemir 20units am levemir 10 units hs ck cortisol, tsh,free t4 cosyntropin stim test
[2019-01-22] MEDS ORDERED: COSYNTROPIN 0.25 MG VIAL IVPUSH ONE ×2 (20:00→20:15)
[2019-01-22] MEDS: POTASSIUM CHLORIDE 10 MEQ in SODIUM CHLORIDE 1,000 ML IVPB SCH (22:17)
[2019-01-22] MEDS: CHLORHEXIDINE GLUCONATE 4% CLEANSER FOR DECOLONIZATION TP SCH (22:28)
[2019-01-23] MEDS: INSULIN SLIDING SCALE (NOVOLOG) 1 VIAL SQ SCH ×5 (01:55→17:54)
[2019-01-23] MEDS: HEPARIN NA (PORCINE) 5,000 UNITS/ML 1ML VIAL SQ SCH ×3 (02:03→19:00)
[2019-01-23 06:05] LABS: BASO % 0.4 % (0-2.0); HEMATOCRIT 21.4 % (32.4-45.2); HEMOGLOBIN 7.2 GM/dL (10.7-15.3); LYMPH % 12.6 % (8-40); MCH 29.5 pg (25.7-33.7); MCHC 33.8 g/dl (32.0-36.0); MEAN CELL VOLUME 87.2 fl (80-96); MEAN PLT VOLUME 8.9 fl (7.5-11.1); MONO % 2.3 % (3.8-10.2); NEUT % 84.7 % (42.8-82.8); PLATELET COUNT 250 K/MM3 (134-434); RBC 2.45 M/mm3 (3.60-5.2); RDW 13.4 % (11.6-15.6); WHITE BLOOD COUNT 11.2 K/mm3 (4.0-10.0)
[2019-01-23] MEDS: POTASSIUM CHLORIDE 10 MEQ in SODIUM CHLORIDE 1,000 ML IVPB SCH (06:14)
[2019-01-23 06:24] LABS: ALBUMIN 2.4 g/dl (3.4-5.0); BILIRUBIN,TOTAL 0.3 mg/dL (0.2-1); BLOOD UREA NITROGEN 39.6 mg/dL (7-18); CALCIUM 7.6 mg/dL (8.5-10.1); CREATININE 1.9 mg/dL (0.55-1.3); TOT PROT 4.9 g/dl (6.4-8.2)
[2019-01-23] MEDS ORDERED: LEVOTHYROXINE NA 50 MCG TABLET (FP) PO SCH (07:00)
[2019-01-23] MEDS ORDERED: INSULIN (LEVEMIR) 100 UNITS/ML UNITS SQ SCH (07:00)
--- NOTE | 2019-01-23 07:16 | PN ---
Physical Exam: SUBJECTIVE: Patient seen and examined at bedside. Currently states that she feels that her nose is congested. Denies any other complaints. Has been off insulin drip. States that she has an appetite. 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 NEUROLOGICAL: No focal deficits Laboratory Results - last 24 hr 01/22/19 01/22/19 01/22/19 06:00 06:30 06:30 WBC 18.5 H RBC 2.66 L Hgb 7.7 L Hct 23.7 L MCV 89.3 MCH 28.8 MCHC 32.3 RDW 13.3 Plt Count 305 MPV 9.5 Absolute Neuts (auto) Neutrophils % Lymphocytes % Monocytes % Eosinophils % Basophils % Nucleated RBC % Retic Count 1.79 H VBG pH POC VBG pCO2 POC VBG pO2 VBG HCO3 VBG O2 Sat (Billie) VBG Base Excess Sodium Potassium Chloride Carbon Dioxide Anion Gap BUN Creatinine Est GFR (CKD-EPI)AfAm Est GFR (CKD-EPI)NonAf POC Glucometer Random Glucose Hemoglobin A1c % Calcium Phosphorus 4.1 Magnesium 1.9 Iron 57 TIBC 245 L Iron Saturation 23 Unsaturated IBC 188 L Ferritin 107.8 Total Bilirubin AST ALT Alkaline Phosphatase Creatine Kinase Creatine Kinase Index CK-MB (CK-2) Troponin I Total Protein Albumin Triglycerides Cholesterol Total LDL Cholesterol HDL Cholesterol Vitamin B12 > 6000 H Serum Folate 68 H TSH Free T4 Ur Random Sodium Ur Random Potassium Ur Random Chloride 01/22/19 01/22/19 01/22/19 06:30 06:30 06:30 WBC RBC Hgb Hct MCV MCH MCHC RDW Plt Count MPV Absolute Neuts (auto) Neutrophils % Lymphocytes % Monocytes % Eosinophils % Basophils % Nucleated RBC % Retic Count VBG pH POC VBG pCO2 POC VBG pO2 VBG HCO3 VBG O2 Sat (Billie) VBG Base Excess Sodium 136 Potassium 4.1 Chloride 107 Carbon Dioxide 16 L Anion Gap 14 BUN 50.3 H Creatinine 2.4 H Est GFR (CKD-EPI)AfAm 29.75 Est GFR (CKD-EPI)NonAf 25.66 POC Glucometer Random Glucose 511 H* Hemoglobin A1c % 12.6 H Calcium 7.2 L Phosphorus Magnesium Iron TIBC Iron Saturation Unsaturated IBC Ferritin Total Bilirubin AST ALT Alkaline Phosphatase Creatine Kinase Creatine Kinase Index CK-MB (CK-2) Troponin I 1.95 H* Total Protein Albumin Triglycerides 118 Cholesterol 90 Total LDL Cholesterol 32 HDL Cholesterol 50 Vitamin B12 Serum Folate TSH Free T4 Ur Random Sodium Ur Random Potassium Ur Random Chloride 01/22/19 01/22/19 01/22/19 08:10 08:15 09:05 WBC RBC Hgb Hct MCV MCH MCHC RDW Plt Count MPV Absolute Neuts (auto) Neutrophils % Lymphocytes % Monocytes % Eosinophils % Basophils % Nucleated RBC % Retic Count VBG pH POC VBG pCO2 POC VBG pO2 VBG HCO3 VBG O2 Sat (Billie) VBG Base Excess Sodium 137 Potassium 3.8 Chloride 108 H Carbon Dioxide 17 L Anion Gap 12 BUN 47.8 H Creatinine 2.2 H Est GFR (CKD-EPI)AfAm 33.05 Est GFR (CKD-EPI)NonAf 28.51 POC Glucometer 406 387 Random Glucose 415 H* Hemoglobin A1c % Calcium 7.4 L Phosphorus Magnesium Iron TIBC Iron Saturation Unsaturated IBC Ferritin Total Bilirubin AST ALT Alkaline Phosphatase Creatine Kinase Creatine Kinase Index CK-MB (CK-2) Troponin I Total Protein Albumin Triglycerides Cholesterol Total LDL Cholesterol HDL Cholesterol Vitamin B12 Serum Folate TSH Free T4 Ur Random Sodium Ur Random Potassium Ur Random Chloride 01/22/19 01/22/19 01/22/19 09:55 10:15 10:30 WBC RBC Hgb Hct MCV MCH MCHC RDW Plt Count MPV Absolute Neuts (auto) Neutrophils % Lymphocytes % Monocytes % Eosinophils % Basophils % Nucleated RBC % Retic Count VBG pH POC VBG pCO2 POC VBG pO2 VBG HCO3 VBG O2 Sat (Billie) VBG Base Excess Sodium Potassium Chloride Carbon Dioxide Anion Gap BUN Creatinine Est GFR (CKD-EPI)AfAm Est GFR (CKD-EPI)NonAf POC Glucometer 332 Random Glucose Hemoglobin A1c % Calcium Phosphorus Magnesium Iron TIBC Iron Saturation Unsaturated IBC Ferritin Total Bilirubin AST ALT Alkaline Phosphatase Creatine Kinase 166 Creatine Kinase Index 3.9 CK-MB (CK-2) 6.6 H Troponin I 1.77 H* Total Protein Albumin Triglycerides Cholesterol Total LDL Cholesterol HDL Cholesterol Vitamin B12 Serum Folate TSH Free T4 Ur Random Sodium 37 L Ur Random Potassium 21.0 L Ur Random Chloride 43 L 01/22/19 01/22/19 01/22/19 10:53 12:03 13:12 WBC RBC Hgb Hct MCV MCH MCHC RDW Plt Count MPV Absolute Neuts (auto) Neutrophils % Lymphocytes % Monocytes % Eosinophils % Basophils % Nucleated RBC % Retic Count VBG pH POC VBG pCO2 POC VBG pO2 VBG HCO3 VBG O2 Sat (Billie) VBG Base Excess Sodium Potassium Chloride Carbon Dioxide Anion Gap BUN Creatinine Est GFR (CKD-EPI)AfAm Est GFR (CKD-EPI)NonAf POC Glucometer 282 180 166 Random Glucose Hemoglobin A1c % Calcium Phosphorus Magnesium Iron TIBC Iron Saturation Unsaturated IBC Ferritin Total Bilirubin AST ALT Alkaline Phosphatase Creatine Kinase Creatine Kinase Index CK-MB (CK-2) Troponin I Total Protein Albumin Triglycerides Cholesterol Total LDL Cholesterol HDL Cholesterol Vitamin B12 Serum Folate TSH Free T4 Ur Random Sodium Ur Random Potassium Ur Random Chloride 01/22/19 01/22/19 01/22/19 14:41 15:28 16:55 WBC RBC Hgb Hct MCV MCH MCHC RDW Plt Count MPV Absolute Neuts (auto) Neutrophils % Lymphocytes % Monocytes % Eosinophils % Basophils % Nucleated RBC % Retic Count VBG pH POC VBG pCO2 POC VBG pO2 VBG HCO3 VBG O2 Sat (Billie) VBG Base Excess Sodium Potassium Chloride Carbon Dioxide Anion Gap BUN Creatinine Est GFR (CKD-EPI)AfAm Est GFR (CKD-EPI)NonAf POC Glucometer 224 276 274 Random Glucose Hemoglobin A1c % Calcium Phosphorus Magnesium Iron TIBC Iron Saturation Unsaturated IBC Ferritin Total Bilirubin AST ALT Alkaline Phosphatase Creatine Kinase Creatine Kinase Index CK-MB (CK-2) Troponin I Total Protein Albumin Triglycerides Cholesterol Total LDL Cholesterol HDL Cholesterol Vitamin B12 Serum Folate TSH Free T4 Ur Random Sodium Ur Random Potassium Ur Random Chloride 01/22/19 01/22/19 01/22/19 18:00 18:00 18:00 WBC 15.3 H RBC 2.51 L Hgb 7.3 L Hct 22.0 L MCV 87.7 MCH 29.0 MCHC 33.0 RDW 13.3 Plt Count 277 MPV 8.5 D Absolute Neuts (auto) 12.0 H Neutrophils % 78.3 D Lymphocytes % 15.6 D Monocytes % 5.5 Eosinophils % 0.1 D Basophils % 0.5 Nucleated RBC % 0 Retic Count VBG pH 7.23 L POC VBG pCO2 36.4 L POC VBG pO2 60.9 H VBG HCO3 14.7 L VBG O2 Sat (Billie) 89.3 H VBG Base Excess -11.4 L Sodium 141 Potassium 3.5 Chloride 114 H Carbon Dioxide 17 L Anion Gap 11 BUN 43.1 H Creatinine 1.9 H Est GFR (CKD-EPI)AfAm 39.45 Est GFR (CKD-EPI)NonAf 34.04 POC Glucometer Random Glucose 228 H Hemoglobin A1c % Calcium 7.2 L Phosphorus Magnesium Iron TIBC Iron Saturation Unsaturated IBC Ferritin Total Bilirubin 0.3 AST 78 H ALT 61 Alkaline Phosphatase 94 Creatine Kinase 143 Creatine Kinase Index CK-MB (CK-2) Troponin I 1.14 H* Total Protein 4.8 L Albumin 2.4 L Triglycerides Cholesterol Total LDL Cholesterol HDL Cholesterol Vitamin B12 Serum Folate TSH Free T4 Ur Random Sodium Ur Random Potassium Ur Random Chloride 01/22/19 01/22/19 01/22/19 18:01 18:57 21:13 WBC RBC Hgb Hct MCV MCH MCHC RDW Plt Count MPV Absolute Neuts (auto) Neutrophils % Lymphocytes % Monocytes % Eosinophils % Basophils % Nucleated RBC % Retic Count VBG pH POC VBG pCO2 POC VBG pO2 VBG HCO3 VBG O2 Sat (Billie) VBG Base Excess Sodium Potassium Chloride Carbon Dioxide Anion Gap BUN Creatinine Est GFR (CKD-EPI)AfAm Est GFR (CKD-EPI)NonAf POC Glucometer [phone] Random Glucose Hemoglobin A1c % Calcium Phosphorus Magnesium Iron TIBC Iron Saturation Unsaturated IBC Ferritin Total Bilirubin AST ALT Alkaline Phosphatase Creatine Kinase Creatine Kinase Index CK-MB (CK-2) Troponin I Total Protein Albumin Triglycerides Cholesterol Total LDL Cholesterol HDL Cholesterol Vitamin B12 Serum Folate TSH Free T4 Ur Random Sodium Ur Random Potassium Ur Random Chloride 01/22/19 01/23/19 01/23/19 23:06 03:29 05:40 WBC RBC Hgb Hct MCV MCH MCHC RDW Plt Count MPV Absolute Neuts (auto) Neutrophils % Lymphocytes % Monocytes % Eosinophils % Basophils % Nucleated RBC % Retic Count VBG pH POC VBG pCO2 POC VBG pO2 VBG HCO3 VBG O2 Sat (Billie) VBG Base Excess Sodium Potassium Chloride Carbon Dioxide Anion Gap BUN Creatinine Est GFR (CKD-EPI)AfAm Est GFR (CKD-EPI)NonAf POC Glucometer 107 106 Random Glucose Hemoglobin A1c % Calcium Phosphorus Magnesium Iron TIBC Iron Saturation Unsaturated IBC Ferritin Total Bilirubin AST ALT Alkaline Phosphatase Creatine Kinase Creatine Kinase Index CK-MB (CK-2) Troponin I Total Protein Albumin Triglycerides Cholesterol Total LDL Cholesterol HDL Cholesterol Vitamin B12 Serum Folate TSH 0.64 Free T4 1.02 Ur Random Sodium Ur Random Potassium Ur Random Chloride 01/23/19 01/23/19 01/23/19 05:40 05:40 06:10 WBC 11.2 H RBC 2.45 L Hgb 7.2 L Hct 21.4 L MCV 87.2 MCH 29.5 MCHC 33.8 RDW 13.4 Plt Count 250 MPV 8.9 Absolute Neuts (auto) 9.5 H Neutrophils % 84.7 H Lymphocytes % 12.6 Monocytes % 2.3 L Eosinophils % 0.0 D Basophils % 0.4 Nucleated RBC % 0 Retic Count VBG pH POC VBG pCO2 POC VBG pO2 VBG HCO3 VBG O2 Sat (Billie) VBG Base Excess Sodium 142 Potassium 4.0 Chloride 116 H Carbon Dioxide 18 L Anion Gap 8 BUN 39.6 H Creatinine 1.9 H Est GFR (CKD-EPI)AfAm 39.45 Est GFR (CKD-EPI)NonAf 34.04 POC Glucometer 108 Random Glucose 106 Hemoglobin A1c % Calcium 7.6 L Phosphorus Magnesium Iron TIBC Iron Saturation Unsaturated IBC Ferritin Total Bilirubin 0.3 AST 60 H ALT 58 Alkaline Phosphatase 83 Creatine Kinase Creatine Kinase Index CK-MB (CK-2) Troponin I Total Protein 4.9 L Albumin 2.4 L Triglycerides Cholesterol Total LDL Cholesterol HDL Cholesterol Vitamin B12 Serum Folate TSH Free T4 Ur Random Sodium Ur Random Potassium Ur Random Chloride Active Medications Generic Name Dose Route Start Last Admin Trade Name Freq PRN Reason Stop Dose Admin Chlorhexidine Gluconate 1 applic 01/22/19 22:00 01/22/19 22:28 Hibiclens For Decolonization - TP 1 applic HS JULIO CESAR Administration Fludrocortisone Acetate 0.1 mg 01/21/19 19:00 01/22/19 10:22 Florinef - PO 0.1 mg DAILY JULIO CESAR Administration Heparin Sodium (Porcine) 5,000 unit 01/22/19 02:00 01/23/19 02:03 Heparin - SQ Not Given Q8H-IV JULIO CESAR Norepinephrine Bitartrate 4, 500 mls @ 37.5 mls/hr 01/22/19 16:00 01/23/19 06 :25 000 mcg/ Sodium Chloride IV 0 mcg/min TITR JULIO CESAR 0 mls/hr Titration Protocol 5 MCG/MIN Potassium Chloride 10 meq/ 1,005 mls @ 100 mls/hr 01/22/19 20:30 01/23/19 06: 14 Sodium Chloride IVPB 100 mls/hr Q10H JULIO CESAR Administration Insulin Aspart 1 vial 01/22/19 16:30 01/23/19 06:11 Novolog Vial Sliding Scale - SQ Not Given ACHS JULIO CESAR Protocol Insulin Detemir 20 units 01/23/19 07:00 Levemir Vial SQ AM JULIO CESAR Levothyroxine Sodium 50 mcg 01/23/19 07:00 01/23/19 06:14 Synthroid - PO 50 mcg DAILY@0700 JULIO CESAR Administration Mupirocin 1 applic 01/21/19 22:00 01/22/19 22:28 Bactroban Ointment (For Decolonization) - NS 01/26/19 21:59 1 applic BID JULIO CESAR Administration Ondansetron HCl 8 mg 01/22/19 10:19 01/22/19 17:32 Zofran Injection IVPUSH 8 mg Q6H PRN Administration NAUSEA Pantoprazole Sodium 40 mg 01/22/19 16:30 01/22/19 17:30 Protonix Iv IVPUSH 40 mg DAILY JULIO CESAR Administration ASSESSMENT/PLAN: 33 year old female with a history of type I diabetes that was diagnosed at age 15 and prior episodes of DKA presented to the ED for altered mental status and admitted for the treatment of diabetic ketoacidosis #Diabetic Ketoacidosis #Anion gap metabolic acidosis #Altered Mental Status #Hypovolemic Shock #Pseudohyponatremia #Acute Kidney Injury #Troponinemia #Hypothyroidism #Lactic acidosis #Anemia #Hypoalbuminemia Endocrine #Diabetic Ketoacidosis: resolved -anion gap closed -off insulin ggt -will need to have pump assessed prior to discharge -continue subcutaneous insulin -BGM -if tolerates diet, can D/C this afternoon #Hypothyroidism: TSH was 4.94 with a Free T4 of 0.79; patient is non-compliant with this medication at home -ED gave high dose levothyroxine -continue fludrocortisone for shock -Patient's primary dye boarding machine operator is Dr. Toshia Galeano #Questionable Adrenal Insufficiency: patient has been on fludrocortisone and has multiple autoimmune diseases; could be a component of [place] disease -will consult Dr. Galeano for evaluation of multiple endocrine abnormalities and insulin pump management -continue fludrocortisone/hydrocortisone -will call Dr. Galeano for recommendations of steroid use Neurological -no acute deficits Cardiovascular #Hypovolemic Shock: resolved, questionable adrenal cause, will f/u with Dr. Galeano #Troponinemia: plateaued Renal #Acute Kidney Injury: creatinine still 1.9, likely component ATN Disposition -downgrade to med surg -Can likely D/C home today or tomorrow Kevin Newman D.O. PGY-3 Internal Medicine Case discussed with Dr. Briscoe Visit type - Emergency Visit Emergency Visit: No - New Patient This patient is new to me today: No - Critical Care Critical Care patient: No ATTENDING PHYSICIAN STATEMENT I saw and evaluated the patient. I reviewed the resident's note and discussed the case with the resident. I agree with the resident's findings and plan as documented. SUBJECTIVE: OBJECTIVE: ASSESSMENT AND PLAN:
[2019-01-23] MEDS ORDERED: PT OWN MED DRAWER 7, Y5N ONE ×2 (09:47→21:42)
[2019-01-23] MEDS: PANTOPRAZOLE SODIUM 40 MG VIAL IVPUSH SCH (10:06)
[2019-01-23] MEDS: FLUDROCORTISONE ACETATE 0.1 MG TABLET (FP) PO SCH (10:07)
[2019-01-23] MEDS: MUPIROCIN 2% TOPICAL OINTMENT FOR DECOLONIZATION NS SCH ×2 (10:08→21:13)
[2019-01-23] MEDS ORDERED: SODIUM CHLORIDE 1,000 ML IV STA ×2 (10:16→10:19)
[2019-01-23] MEDS ORDERED: POTASSIUM CHLORIDE 10 MEQ in SODIUM CHLORIDE 0.45% 1,000 ML IVPB SCH (10:30)
--- NOTE | 2019-01-23 12:09 | PN ---
Teaching Attending Note Name of Resident: Kevin Newman ATTENDING PHYSICIAN STATEMENT I saw and evaluated the patient. I reviewed the resident's note and discussed the case with the resident. I agree with the resident's findings and plan as documented. SUBJECTIVE: Pt seen and examined in the ICU. Feeling better today. Off insulin gtt. Less nausea. Tolerating PO. OBJECTIVE: Vital Signs Period Temp Pulse Resp BP Sys/Rubi Pulse Ox Last 24 Hr 98.1 F-98.8 F 82-99 - 86-128/48-79 100-100 Intake & Output 01/20/19 01/21/19 01/22/19 01/23/19 23:59 23:59 23:59 23:59 Intake Total 592 5710.0 1494 Output Total 4300 1000 Balance 592 1410.0 494 Weight 54.431 kg 54.431 kg 63.616 kg Gen: NAD at rest Heart: RRR Lung: decreased breath sounds at the bases Abd: soft, nontender Ext: no edema CBC, BMP 01/23/19 05:40 01/23/19 05:40 Active Medications Chlorhexidine Gluconate (Hibiclens For Decolonization -) 1 applic TP HS JULIO CESAR Last Admin: 01/22/19 22:28 Dose: 1 applic Fludrocortisone Acetate (Florinef -) 0.1 mg PO DAILY JULIO CESAR Last Admin: 01/23/19 10:07 Dose: 0.1 mg Heparin Sodium (Porcine) (Heparin -) 5,000 unit SQ Q8H-IV JULIO CESAR Last Admin: 01/23/19 10:08 Dose: Not Given Norepinephrine Bitartrate 4, (000 mcg/ Sodium Chloride) 500 mls @ 37.5 mls/hr IV TITR JULIO CESAR; Protocol Last Titration: 01/23/19 06:25 Dose: 0 mcg/min, 0 mls/hr Potassium Chloride 10 meq/ (Sodium Chloride) 1,005 mls @ 125 mls/hr IVPB Q8H JULIO CESAR Last Admin: 01/23/19 11:38 Dose: 125 mls/hr Insulin Aspart (Novolog Vial Sliding Scale -) 1 vial SQ ACHS JULIO CESAR; Protocol Last Admin: 01/23/19 10:29 Dose: Not Given Insulin Detemir (Levemir Vial) 20 units SQ AM JULIO CESAR Last Admin: 01/23/19 10:06 Dose: Not Given Levothyroxine Sodium (Synthroid -) 50 mcg PO DAILY@0700 PENDING SALE TO [facility] Last Admin: 01/23/19 06:14 Dose: 50 mcg Mupirocin (Bactroban Ointment (For Decolonization) -) 1 applic NS BID PENDING S[facility] TO [facility] Stop: 01/26/19 21:59 Last Admin: 01/23/19 10:08 Dose: 1 applic Ondansetron HCl (Zofran Injection) 8 mg IVPUSH Q6H PRN PRN Reason: NAUSEA Last Admin: 01/22/19 17:32 Dose: 8 mg Pantoprazole Sodium (Protonix Iv) 40 mg IVPUSH DAILY PENDING S[facility] TO [facility] Last Admin: 01/23/19 10:06 Dose: 40 mg ASSESSMENT AND PLAN: Diabetic Ketoacidosis Shock/Hypotension improved r/o Adrenal Insufficiency Acute Kidney Injury +Troponins likely Demand Ischemia Anemia - glucose control - IVF - monitor urine output, creatinine - monitor lytes - f/u cortisol level - continue fludro - PO as tolerated - antiemetics - DVT prophylaxis - can monitor on floor
--- NOTE | 2019-01-23 12:40 | ECHO ---
Name: SUPRIYA JORDAN Exam:Adult Echocardiogram Study Date: 01/23/2019 11:07 AM Age: 33 yrs Reason For Study: DKA DEMAND ISCHEMIA Height: 60 in Weight: 120 lb BSA: 1.5 m2 MMode/2D Measurements & Calculations IVSd: 0.79 cm LA dimension: 3.1 cm LVIDd: 4.4 cm LVIDs: 2.7 cm LVPWd: 0.73 cm EDV(Teich): 87.2 ml ESV(Teich): 26.0 ml Doppler Measurements & Calculations MV E max car: 111.1 cm/sec Ao V2 max: 121.0 cm/sec MV A max car: 73.1 cm/sec Ao max P.9 mmHg MV E/A: 1.5 Ao V2 mean: 83.2 cm/sec MV dec time: 0.12 sec Ao mean P.2 mmHg Ao V2 VTI: 24.9 cm LV V1 max P.0 mmHg MR max car: 417.0 cm/sec LV V1 mean P.6 mmHg MR max P.9 mmHg LV V1 max: 86.9 cm/sec LV V1 mean: 59.2 cm/sec LV V1 VTI: 18.5 cm TR max car: 214.3 cm/sec Med Peak E' Car: 7.5 cm/sec TR max P.4 mmHg Med E/e': 14.8 Lat Peak E' Car: 9.8 cm/sec Lat E/e': 11.3 Procedure A complete two-dimensional transthoracic echocardiogram was performed (2D, M-mode, Doppler and color flow Doppler). Left Ventricle The left ventricle is normal in size. Left ventricular systolic function is normal. Ejection Fraction = 65- 70%. No regional wall motion abnormalities noted. Right Ventricle The right ventricle is normal size. The right ventricular systolic function is normal. RV systolic TD I is 11 cm/s. Atria The left atrial size is normal. Right atrial size is normal. Mitral Valve The mitral valve is normal in structure and function. There is mild to moderate mitral regurgitation. Tricuspid Valve The tricuspid valve is normal in structure and function. There is mild tricuspid regurgitation. Right ventricular systolic pressure is normal. Aortic Valve The aortic valve is normal in structure and function. No aortic regurgitation is present. Pulmonic Valve The pulmonic valve is not well visualized. Great Vessels The aortic root is normal size. Pericardium/Pleura There is no pericardial effusion. Interpretation Summary The left ventricle is normal in size. Left ventricular systolic function is normal. No regional wall motion abnormalities noted. Ejection Fraction = 65-70%. The right ventricular systolic function is normal. The left atrial size is normal. Right atrial size is normal. There is mild to moderate mitral regurgitation. There is mild tricuspid regurgitation. Right ventricular systolic pressure is normal. There is no pericardial effusion. Previous study is not available for comparison Carroll Rivero MD 01/23/2019 12:40 PM
--- NOTE | 2019-01-23 13:04 | PN ---
Teaching Attending Note Name of Resident: Khoa Simpson ATTENDING PHYSICIAN STATEMENT I saw and evaluated the patient. I reviewed the resident's note and discussed the case with the resident. I agree with the resident's findings and plan as documented. SUBJECTIVE: Nausea improved. No vomiting. No fever/chills. No cough/sputum/. No dysuria/hematuria. No abdominal pain, some further diarrhea (non-bloody) OBJECTIVE: Afebrile, hemodynamically Stable. Off Levophed. AAO x 3. Last Vital Signs Temp Pulse Resp BP Pulse Ox 98.2 F 82 18 94/64 100 01/23/19 06:00 01/23/19 08:00 01/23/19 08:29 01/23/19 08:00 01/23/19 08:29 Heart - S1, S2, RRR Lungs - clear to auscultation Abdomen - Soft, mild epigastric tenderness, bowel sounds normal Extremities - no edema, no calf tenderness. Neuro - AAO x 3. Tone/Power normal all 4 extremities. Laboratory Results - last 24 hr 01/22/19 01/22/19 01/22/19 13:12 14:41 15:28 WBC RBC Hgb Hct MCV MCH MCHC RDW Plt Count MPV Absolute Neuts (auto) Neutrophils % Lymphocytes % Monocytes % Eosinophils % Basophils % Nucleated RBC % VBG pH POC VBG pCO2 POC VBG pO2 VBG HCO3 VBG O2 Sat (Billie) VBG Base Excess Sodium Potassium Chloride Carbon Dioxide Anion Gap BUN Creatinine Est GFR (CKD-EPI)AfAm Est GFR (CKD-EPI)NonAf POC Glucometer 166 224 276 Random Glucose Calcium Total Bilirubin AST ALT Alkaline Phosphatase Creatine Kinase Troponin I Total Protein Albumin TSH Free T4 01/22/19 01/22/19 01/22/19 16:55 18:00 18:00 WBC RBC Hgb Hct MCV MCH MCHC RDW Plt Count MPV Absolute Neuts (auto) Neutrophils % Lymphocytes % Monocytes % Eosinophils % Basophils % Nucleated RBC % VBG pH 7.23 L POC VBG pCO2 36.4 L POC VBG pO2 60.9 H VBG HCO3 14.7 L VBG O2 Sat (Billie) 89.3 H VBG Base Excess -11.4 L Sodium 141 Potassium 3.5 Chloride 114 H Carbon Dioxide 17 L Anion Gap 11 BUN 43.1 H Creatinine 1.9 H Est GFR (CKD-EPI)AfAm 39.45 Est GFR (CKD-EPI)NonAf 34.04 POC Glucometer 274 Random Glucose 228 H Calcium 7.2 L Total Bilirubin 0.3 AST 78 H ALT 61 Alkaline Phosphatase 94 Creatine Kinase 143 Troponin I 1.14 H* Total Protein 4.8 L Albumin 2.4 L TSH Free T4 01/22/19 01/22/19 01/22/19 18:00 18:01 18:57 WBC 15.3 H RBC 2.51 L Hgb 7.3 L Hct 22.0 L MCV 87.7 MCH 29.0 MCHC 33.0 RDW 13.3 Plt Count 277 MPV 8.5 D Absolute Neuts (auto) 12.0 H Neutrophils % 78.3 D Lymphocytes % 15.6 D Monocytes % 5.5 Eosinophils % 0.1 D Basophils % 0.5 Nucleated RBC % 0 VBG pH POC VBG pCO2 POC VBG pO2 VBG HCO3 VBG O2 Sat (Billie) VBG Base Excess Sodium Potassium Chloride Carbon Dioxide Anion Gap BUN Creatinine Est GFR (CKD-EPI)AfAm Est GFR (CKD-EPI)NonAf POC Glucometer 239 197 Random Glucose Calcium Total Bilirubin AST ALT Alkaline Phosphatase Creatine Kinase Troponin I Total Protein Albumin TSH Free T4 01/22/19 01/22/19 01/23/19 21:13 23:06 03:29 WBC RBC Hgb Hct MCV MCH MCHC RDW Plt Count MPV Absolute Neuts (auto) Neutrophils % Lymphocytes % Monocytes % Eosinophils % Basophils % Nucleated RBC % VBG pH POC VBG pCO2 POC VBG pO2 VBG HCO3 VBG O2 Sat (Billie) VBG Base Excess Sodium Potassium Chloride Carbon Dioxide Anion Gap BUN Creatinine Est GFR (CKD-EPI)AfAm Est GFR (CKD-EPI)NonAf POC Glucometer 102 107 106 Random Glucose Calcium Total Bilirubin AST ALT Alkaline Phosphatase Creatine Kinase Troponin I Total Protein Albumin TSH Free T4 01/23/19 01/23/19 01/23/19 05:40 05:40 05:40 WBC 11.2 H RBC 2.45 L Hgb 7.2 L Hct 21.4 L MCV 87.2 MCH 29.5 MCHC 33.8 RDW 13.4 Plt Count 250 MPV 8.9 Absolute Neuts (auto) 9.5 H Neutrophils % 84.7 H Lymphocytes % 12.6 Monocytes % 2.3 L Eosinophils % 0.0 D Basophils % 0.4 Nucleated RBC % 0 VBG pH POC VBG pCO2 POC VBG pO2 VBG HCO3 VBG O2 Sat (Billie) VBG Base Excess Sodium 142 Potassium 4.0 Chloride 116 H Carbon Dioxide 18 L Anion Gap 8 BUN 39.6 H Creatinine 1.9 H Est GFR (CKD-EPI)AfAm 39.45 Est GFR (CKD-EPI)NonAf 34.04 POC Glucometer Random Glucose 106 Calcium 7.6 L Total Bilirubin 0.3 AST 60 H ALT 58 Alkaline Phosphatase 83 Creatine Kinase Troponin I Total Protein 4.9 L Albumin 2.4 L TSH 0.64 Free T4 1.02 01/23/19 01/23/19 06:10 10:19 WBC RBC Hgb Hct MCV MCH MCHC RDW Plt Count MPV Absolute Neuts (auto) Neutrophils % Lymphocytes % Monocytes % Eosinophils % Basophils % Nucleated RBC % VBG pH POC VBG pCO2 POC VBG pO2 VBG HCO3 VBG O2 Sat (Billie) VBG Base Excess Sodium Potassium Chloride Carbon Dioxide Anion Gap BUN Creatinine Est GFR (CKD-EPI)AfAm Est GFR (CKD-EPI)NonAf POC Glucometer 108 139 Random Glucose Calcium Total Bilirubin AST ALT Alkaline Phosphatase Creatine Kinase Troponin I Total Protein Albumin TSH Free T4 Current Medications Generic Name Dose Route Start Last Admin Trade Name Freq PRN Reason Stop Dose Admin Chlorhexidine Gluconate 1 applic 01/22/19 22:00 01/22/19 22:28 Hibiclens For Decolonization - TP 1 applic HS JULIO CESAR Administration Fludrocortisone Acetate 0.1 mg 01/21/19 19:00 01/23/19 10:07 Florinef - PO 0.1 mg DAILY JULIO CESAR Administration Heparin Sodium (Porcine) 5,000 unit 01/22/19 02:00 01/23/19 10:08 Heparin - SQ Not Given Q8H-IV JULIO CESAR Norepinephrine Bitartrate 4, 500 mls @ 37.5 mls/hr 01/22/19 16:00 01/23/19 06 :25 000 mcg/ Sodium Chloride IV 0 mcg/min TITR JULIO CESAR 0 mls/hr Titration Protocol 5 MCG/MIN Potassium Chloride 10 meq/ 1,005 mls @ 125 mls/hr 01/23/19 10:30 01/23/19 11: 38 Sodium Chloride IVPB 125 mls/hr Q8H JULIO CESAR Administration Insulin Aspart 1 vial 01/22/19 16:30 01/23/19 10:29 Novolog Vial Sliding Scale - SQ Not Given ACHS [facility] Protocol Insulin Detemir 20 units 01/23/19 07:00 01/23/19 10:06 Levemir Vial SQ Not Given AM JULIO CESAR Levothyroxine Sodium 50 mcg 01/23/19 07:00 01/23/19 06:14 Synthroid - PO 50 mcg DAILY@0700 JULIO CESAR Administration Mupirocin 1 applic 01/21/19 22:00 01/23/19 10:08 Bactroban Ointment (For Decolonization) - NS 01/26/19 21:59 1 applic BID JULIO CESAR Administration Ondansetron HCl 8 mg 01/22/19 10:19 01/22/19 17:32 Zofran Injection IVPUSH 8 mg Q6H PRN Administration NAUSEA Pantoprazole Sodium 40 mg 01/22/19 16:30 01/23/19 10:06 Protonix Iv IVPUSH 40 mg DAILY JULIO CESAR Administration Home Medications Medication Instructions Recorded Fludrocortisone Acetate 0.1 mg PO DAILY 08/10/16 Insulin Pump/Infus. Set/Meter 1 each ASDIR 08/10/16 [Accu-Chek Combo System] ASSESSMENT/PLAN: 33 year old female with DM 1, legally blind, brought to ED with 2 day history of elevated capillary glucose readings at home with drowsiness and disorientation noted by her grandmother. she was found to have AGMA with pH 7.05 and Urine positive for acetone. 1. DKA - unclear whether Insulin pump is functioning No focus of infection identified. Urine Cx < 10,000 CFU/ml LFNB, asymptomatic. If any further diarrhea, will send for Cdiff and Stool Cx. Acidosis improved and AG closed. Insulin drip discontinued. To resume diet and bridging with Levemir., along with sliding scale. Unable to check if insulin pump is functional. Will reach out to Dr. Galeano, patient's accounts collector, for recommended dosing of Levemr/Novolog on discharge. Endocrinology follow up and insulin pump check needed. 2. Hypovolemic Shock secondary to possible adrenal insufficiency - appeared to resolve, but BP now borderline again. No evidence for sepsis. Successfully weaned off Levophed. Resumed on fludrocotizone. Cosyntropin Stim test and AM cortisol levels in progress. Given borderline BP, awaiting Endocrinology recommendation for ongoing Steroids and adrenal insufficiency work-up. 3. Acute Metabolic Encephalopathy sec to Acidemia and Hyperglycemia - resolved. Resolved with DKA management, improvement of hydration status. 4. Hyperkalemia - resolved with fluid resuscitation and insulin administration. 5. Troponin Egression, due to increased demand in setting of hypotension and coronary hypoperfusion. No history of CAD. No CP. Cardio consulted and agrees with above. 6. Anemia, multifactorial, secondary to chronic disease and H/H likely below baseline due to dilution. Initially reported as macrocytic, subsequently normocytic - B12/Folate levels high (B12 > 6000, Folate 68). Retic count mildly elevated at 1.79. Will need Iron studies and Hematology referral as out- patient. No evidence of acute blood loss. 7. LESTER due to Hypovolemia and possible ATN sec to Hypotension - will check repeat renal function after additional IV hydration. 8. Leukoctosis, reactive. No focus of infection. CXR clear. Urine Cx < 10,000 CFU/ml. Blood Cx negative. DVT Px - Heparin SQ GI Px - PPI
[2019-01-23 13:24] VITALS: BMI 27.3
[2019-01-23] MEDS ORDERED: SODIUM CHLORIDE 0.45% 1,000 ML IV SCH ×2 (14:15→18:15)
[2019-01-23] MEDS: SODIUM CHLORIDE 0.45% 1,000 ML IV SCH ×2 (17:52→20:33)
[2019-01-23 18:12] LABS: BLOOD UREA NITROGEN 37.7 mg/dL (7-18); CALCIUM 7.5 mg/dL (8.5-10.1)
--- NOTE | 2019-01-23 18:32 | PN ---
Physical Exam: SUBJECTIVE: 33 y/o F w PMH DM 1, DKA x2, IBS, low bp, and legally blind, admitted to the ICU for tx of DKA LISA 3. She has no complaints today. Pt does report her broth diet causes her to go pass loose stool but reports it is consistent with IBS. Stool is non-bloody and no mucous present. Pt denies low energy, numbness, tingling, LEGGETT, and vision change. Pt denies NVF. OBJECTIVE: Vital Signs Temp Pulse Resp BP Pulse Ox 98 F 88 18 89/57 L 100 01/23/19 14:45 01/23/19 16:00 01/23/19 16:00 01/23/19 16:00 01/23/19 08:29 GENERAL: The patient is awake, alert, and fully oriented, in no acute distress. HEAD: Normal with no signs of trauma. EYES: VISUAL ACUITY w corrective lenses: 20/20 BL, 20/20 LEFT eye, RIGHT eye can only see light/dark. 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 JERSON, EOMI, sclera anicteric, conjunctiva clear. No ptosis. ENT: Ears normal, nares patent, oropharynx clear without exudates, moist mucous membranes. NECK: Trachea midline, full range of motion, supple. LUNGS: Breath sounds equal, clear to auscultation bilaterally, no wheezes, no crackles, no accessory muscle use. HEART: Regular rate and rhythm, S1, S2 without murmur, rub or gallop. ABDOMEN: Soft, nontender, nondistended, normoactive bowel sounds, no guarding, no rebound, no hepatosplenomegaly, no masses. EXTREMITIES: 2+ pulses, warm, well-perfused, no edema. NEUROLOGICAL: Cranial nerves II through XII grossly intact. Normal speech, gait not observed. PSYCH: Normal mood, normal affect. SKIN: Warm, dry, normal turgor, no rashes or lesions noted Laboratory Results - last 24 hr 01/22/19 01/22/19 01/22/19 18:00 18:00 18:00 WBC 15.3 H RBC 2.51 L Hgb 7.3 L Hct 22.0 L MCV 87.7 MCH 29.0 MCHC 33.0 RDW 13.3 Plt Count 277 MPV 8.5 D Absolute Neuts (auto) 12.0 H Neutrophils % 78.3 D Lymphocytes % 15.6 D Monocytes % 5.5 Eosinophils % 0.1 D Basophils % 0.5 Nucleated RBC % 0 VBG pH 7.23 L POC VBG pCO2 36.4 L POC VBG pO2 60.9 H VBG HCO3 14.7 L VBG O2 Sat (Billie) 89.3 H VBG Base Excess -11.4 L Sodium 141 Potassium 3.5 Chloride 114 H Carbon Dioxide 17 L Anion Gap 11 BUN 43.1 H Creatinine 1.9 H Est GFR (CKD-EPI)AfAm 39.45 Est GFR (CKD-EPI)NonAf 34.04 POC Glucometer Random Glucose 228 H Calcium 7.2 L Total Bilirubin 0.3 AST 78 H ALT 61 Alkaline Phosphatase 94 Creatine Kinase 143 Troponin I 1.14 H* Total Protein 4.8 L Albumin 2.4 L TSH Free T4 01/22/19 01/22/19 01/22/19 18:01 18:57 21:13 WBC RBC Hgb Hct MCV MCH MCHC RDW Plt Count MPV Absolute Neuts (auto) Neutrophils % Lymphocytes % Monocytes % Eosinophils % Basophils % Nucleated RBC % VBG pH POC VBG pCO2 POC VBG pO2 VBG HCO3 VBG O2 Sat (Billei) VBG Base Excess Sodium Potassium Chloride Carbon Dioxide Anion Gap BUN Creatinine Est GFR (CKD-EPI)AfAm Est GFR (CKD-EPI)NonAf POC Glucometer 239 197 102 Random Glucose Calcium Total Bilirubin AST ALT Alkaline Phosphatase Creatine Kinase Troponin I Total Protein Albumin TSH Free T4 01/22/19 01/23/19 01/23/19 23:06 03:29 05:40 WBC RBC Hgb Hct MCV MCH MCHC RDW Plt Count MPV Absolute Neuts (auto) Neutrophils % Lymphocytes % Monocytes % Eosinophils % Basophils % Nucleated RBC % VBG pH POC VBG pCO2 POC VBG pO2 VBG HCO3 VBG O2 Sat (Billie) VBG Base Excess Sodium Potassium Chloride Carbon Dioxide Anion Gap BUN Creatinine Est GFR (CKD-EPI)AfAm Est GFR (CKD-EPI)NonAf POC Glucometer 107 106 Random Glucose Calcium Total Bilirubin AST ALT Alkaline Phosphatase Creatine Kinase Troponin I Total Protein Albumin TSH 0.64 Free T4 1.02 01/23/19 01/23/19 01/23/19 05:40 05:40 06:10 WBC 11.2 H RBC 2.45 L Hgb 7.2 L Hct 21.4 L MCV 87.2 MCH 29.5 MCHC 33.8 RDW 13.4 Plt Count 250 MPV 8.9 Absolute Neuts (auto) 9.5 H Neutrophils % 84.7 H Lymphocytes % 12.6 Monocytes % 2.3 L Eosinophils % 0.0 D Basophils % 0.4 Nucleated RBC % 0 VBG pH POC VBG pCO2 POC VBG pO2 VBG HCO3 VBG O2 Sat (Billie) VBG Base Excess Sodium 142 Potassium 4.0 Chloride 116 H Carbon Dioxide 18 L Anion Gap 8 BUN 39.6 H Creatinine 1.9 H Est GFR (CKD-EPI)AfAm 39.45 Est GFR (CKD-EPI)NonAf 34.04 POC Glucometer 108 Random Glucose 106 Calcium 7.6 L Total Bilirubin 0.3 AST 60 H ALT 58 Alkaline Phosphatase 83 Creatine Kinase Troponin I Total Protein 4.9 L Albumin 2.4 L TSH Free T4 01/23/19 01/23/19 10:19 14:29 WBC RBC Hgb Hct MCV MCH MCHC RDW Plt Count MPV Absolute Neuts (auto) Neutrophils % Lymphocytes % Monocytes % Eosinophils % Basophils % Nucleated RBC % VBG pH POC VBG pCO2 POC VBG pO2 VBG HCO3 VBG O2 Sat (Billie) VBG Base Excess Sodium Potassium Chloride Carbon Dioxide Anion Gap BUN Creatinine Est GFR (CKD-EPI)AfAm Est GFR (CKD-EPI)NonAf POC Glucometer 139 256 Random Glucose Calcium Total Bilirubin AST ALT Alkaline Phosphatase Creatine Kinase Troponin I Total Protein Albumin TSH Free T4 Active Medications Chlorhexidine Gluconate (Hibiclens For Decolonization -) 1 applic TP HS JULIO CESAR Last Admin: 01/22/19 22:28 Dose: 1 applic Fludrocortisone Acetate (Florinef -) 0.1 mg PO DAILY [facility] Last Admin: 01/23/19 10:07 Dose: 0.1 mg Heparin Sodium (Porcine) (Heparin -) 5,000 unit SQ Q8H-IV JULIO CESAR Last Admin: 01/23/19 10:08 Dose: Not Given Sodium Chloride (1/2 Normal Saline) 1,000 mls @ 100 mls/hr IV ASDIR JULIO CESAR Last Admin: 01/23/19 17:52 Dose: 100 mls/hr Insulin Aspart (Novolog Vial Sliding Scale -) 1 vial SQ ACHS [facility]; Protocol Last Admin: 01/23/19 17:54 Dose: Not Given Insulin Detemir (Levemir Vial) 20 units SQ AM [facility] Last Admin: 01/23/19 10:06 Dose: Not Given Levothyroxine Sodium (Synthroid -) 50 mcg PO DAILY@0700 [facility] Last Admin: 01/23/19 06:14 Dose: 50 mcg Mupirocin (Bactroban Ointment (For Decolonization) -) 1 applic NS BID [facility] Stop: 01/26/19 21:59 Last Admin: 01/23/19 10:08 Dose: 1 applic Ondansetron HCl (Zofran Injection) 8 mg IVPUSH Q6H PRN PRN Reason: NAUSEA Last Admin: 01/22/19 17:32 Dose: 8 mg Pantoprazole Sodium (Protonix Iv) 40 mg IVPUSH DAILY [facility] Last Admin: 01/23/19 10:06 Dose: 40 mg ASSESSMENT/PLAN: 33 y/o F w PMH DM 1, DKA x2, IBS, low bp, and legally blind, admitted w AGMA, pH 7.05, gluc 1,380 in ED, and (+) urine acetone consistent with DKA. DKA treated in ICU over 2 days. Now, pt has consistently low BP, ?poss adrenal insufficiency. # DKA - Provided pt w tech support contact for insulin pump: [employer] . Local pump specialist: Dixie Basilio - Loose stool today -> C.diff and stool culture - Acidosis improved - AG closed - Insulin drip d/c - Broth diet - Levemir + ISS - Levemr/Novolog on d/c - Endocrinology f/u # Low BP/ poss. adrenal insufficiency - Corticosyntropin test pending - AM cortisol pending - Fluids given - No evidence of sepsis; urine negative - Successfully weaned off Levophed - Resumed fludrocotizone - Dr. Mayers (endocrinology) consulted # Acute Metabolic encephalopathy 2/2 acidemia and hyperglycemia - Resolved: A&Ox3 - Resolved with DKA management # Troponemia - most likely 2/2 demand in the setting of hypotension and coronary hypoperfusion - No history of CAD - No CP, SOB - Cardiology consult concurs # Anemia - Multifactorial: 2/2 chronic disease and presently H/H likely low d/t dilution - Normocytic: B12/Folate levels high (B12 > 6000, Folate 68). - Retic count mildly elevated at 1.79. - F/u Fe studies - Hematology out-pt - No evidence of acute blood loss. # LESTER 2/2 hypovolemia. ?poss ATN d/t hypotension - Cont. hydration - F/u renal function # Leukoctosis/left shift - No suspected focus of infection - Likely d/t cellular stress in setting of medical illness - CXR clear - Urine Cx < 10,000 CFU/ml. - Blood Cx negative. # F/E/N - 1/2 NS 2/2 elevated Cl - Monitor electrolytes - Brother diabetic diet # DVT prophylaxis - Heparin # Dispo Full code Dr. Khoa Simpson MD Visit type - Emergency Visit Emergency Visit: No - New Patient This patient is new to me today: No - Critical Care Critical Care patient: Yes Total Critical Care Time (in minutes): 40 Critical Care Statement: The care of this patient involved high complexity decision making to prevent further life threatening deterioration of the patient 's condition and/or to evaluate & treat vital organ system(s) failure or risk of failure. - Discharge Referral Referred to [facility] Med [facility] No ATTENDING PHYSICIAN STATEMENT I saw and evaluated the patient. I reviewed the resident's note and discussed the case with the resident. I agree with the resident's findings and plan as documented. SUBJECTIVE: OBJECTIVE: ASSESSMENT AND PLAN:
[2019-01-23] MEDS ORDERED: HYDROCORTISONE SOD SUCCINATE 100 MG/2 ML VIAL IVPB ONE (18:52)
--- NOTE | 2019-01-23 19:01 | PN ---
Progress Note, Physician Chief Complaint: weak and lethargic difficulty sitting up in bed low bp 56-70 systolic History of Present Illness: dm t1,sp dka,hypoadrenalism,low bp and poor appetite - Current Medication List Current Medications: Active Medications Chlorhexidine Gluconate (Hibiclens For Decolonization -) 1 applic TP HS [facility] Last Admin: 01/22/19 22:28 Dose: 1 applic Fludrocortisone Acetate (Florinef -) 0.1 mg PO DAILY [facility] Last Admin: 01/23/19 10:07 Dose: 0.1 mg Heparin Sodium (Porcine) (Heparin -) 5,000 unit SQ Q8H-IV JULIO CESAR Last Admin: 01/23/19 10:08 Dose: Not Given Hydrocortisone (Cortef -) 30 mg PO AM [facility] Hydrocortisone Sodium Succinate (Solu-Cortef -) 100 mg IVPB ONCE ONE Stop: 01/23/19 18:53 Sodium Chloride (1/2 Normal Saline) 1,000 mls @ 100 mls/hr IV ASDIR [facility] Last Admin: 01/23/19 17:52 Dose: 100 mls/hr Sodium Chloride (1/2 Normal Saline) 1,000 mls @ 999 mls/hr IV ASDIR [facility] Last Admin: 01/23/19 18:49 Dose: 999 mls/hr Insulin Aspart (Novolog Vial Sliding Scale -) 1 vial SQ ACHS [facility]; Protocol Last Admin: 01/23/19 17:54 Dose: Not Given Insulin Detemir (Levemir Vial) 20 units SQ AM [facility] Last Admin: 01/23/19 10:06 Dose: Not Given Levothyroxine Sodium (Synthroid -) 50 mcg PO DAILY@0700 [facility] Last Admin: 01/23/19 06:14 Dose: 50 mcg Mupirocin (Bactroban Ointment (For Decolonization) -) 1 applic NS BID [facility] Stop: 01/26/19 21:59 Last Admin: 01/23/19 10:08 Dose: 1 applic Ondansetron HCl (Zofran Injection) 8 mg IVPUSH Q6H PRN PRN Reason: NAUSEA Last Admin: 01/22/19 17:32 Dose: 8 mg Pantoprazole Sodium (Protonix Iv) 40 mg IVPUSH DAILY [facility] Last Admin: 01/23/19 10:06 Dose: 40 mg - Objective Vital Signs: Vital Signs Temperature 98 F 01/23/19 14:45 Pulse Rate 90 01/23/19 18:00 Respiratory Rate 24 H 01/23/19 18:00 Blood Pressure 73/46 L 01/23/19 18:00 O2 Sat by Pulse Oximetry (%) 100 01/23/19 08:29 Constitutional: Yes: Calm Eyes: Yes: EOM Intact HENT: Yes: Normocephalic Neck: Yes: Trachea Midline Cardiovascular: Yes: Regular Rate and Rhythm Respiratory: Yes: CTA Bilaterally Gastrointestinal: Yes: Normal Bowel Sounds ...Rectal Exam: Yes: WNL Genitourinary: Yes: WNL Musculoskeletal: Yes: WNL Extremities: Yes: WNL Edema: No Peripheral Pulses WNL: Yes Neurological: Yes: Alert, Oriented Labs: CBC, BMP 01/23/19 05:40 01/23/19 17:00 INR, PTT INR 0.88 (0.83-1.09) 01/21/19 18:20 Problem List - Problems (1) Hypotension Code(s): I95.9 - HYPOTENSION, UNSPECIFIED Qualifiers: Hypotension type: orthostatic hypotension Qualified Code(s): I95.1 - Orthostatic hypotension (2) Anemia Code(s): D64.9 - ANEMIA, UNSPECIFIED (3) DKA (diabetic ketoacidoses) Code(s): E11.10 - TYPE 2 DIABETES MELLITUS WITH KETOACIDOSIS WITHOUT COMA (4) LESTER (acute kidney injury) Code(s): N17.9 - ACUTE KIDNEY FAILURE, UNSPECIFIED (5) Common cold Code(s): J00 - ACUTE NASOPHARYNGITIS [COMMON COLD] (6) Diabetes Code(s): E11.9 - TYPE 2 DIABETES MELLITUS WITHOUT COMPLICATIONS Qualifiers: Diabetes mellitus type: type 1 Assessment/Plan Current Active Problems adrenal deficiency hypoadrenalism dmt1 sp dka LESTER (acute kidney injury) (Acute) Anemia (Chronic) Abnormal Lab Results 01/22/19 01/23/19 01/23/19 18:00 05:40 05:40 WBC 11.2 H RBC 2.45 L Hgb 7.2 L Hct 21.4 L Absolute Neuts (auto) 9.5 H Neutrophils % 84.7 H Monocytes % 2.3 L Chloride 116 H Carbon Dioxide 18 L BUN 39.6 H Creatinine 1.9 H Random Glucose Calcium 7.6 L AST 60 H Troponin I 1.14 H* Total Protein 4.9 L Albumin 2.4 L 01/23/19 17:00 WBC RBC Hgb Hct Absolute Neuts (auto) Neutrophils % Monocytes % Chloride 117 H Carbon Dioxide 16 L BUN 37.7 H Creatinine 2.0 H Random Glucose 180 H Calcium 7.5 L AST Troponin I Total Protein Albumin Laboratory Tests 01/22/19 01/22/19 01/22/19 08:15 09:05 09:55 Sodium 137 Potassium 3.8 Chloride 108 H Carbon Dioxide 17 L Anion Gap 12 BUN 47.8 H Creatinine 2.2 H Est GFR (CKD-EPI)AfAm 33.05 Est GFR (CKD-EPI)NonAf 28.51 POC Glucometer 387 332 Random Glucose 415 H* plan:solucortef iv x 1 dose cortef 50/day start in am continue guero risk and benifets explained thoroughly to pt and she accepts will need close monitoring bp and bgm
[2019-01-23] MEDS ORDERED: INSULIN SLIDING SCALE (NOVOLOG) 1 VIAL SQ SCH (19:15)
[2019-01-23] MEDS ORDERED: GABAPENTIN 300 MG CAPSULE (FP) PO ONE (19:52)
[2019-01-23] MEDS: CHLORHEXIDINE GLUCONATE 4% CLEANSER FOR DECOLONIZATION TP SCH (21:14)
[2019-01-23] MEDS ORDERED: HYDROCORTISONE 10 MG TABLET PO SCH (22:00)
--- NOTE | 2019-01-23 23:21 | PN ---
Progress Note, Physician Chief Complaint: Pt A&Ox3; sitting up in bed. Denies chest pain or dyspnea; no dizziness ("I don' t feel bad until my BP goes below 55 (systolic) or so; then I might get dizzy or weak"). History of Present Illness: The patient is a 33 year old female with a significant PMH of IDDM (dx at age 15 , on insulin pump, has had DKA before), IBS, legally blind, and prior UTI who presents to the emergency department via EMS for elevated blood sugar and AMS. As per mother, the patient has been lethargic and confused today and the patient had a BP in the 60s and blood sugar of over 600. Pt notes she gave herself 7.8 units of insulin 4hrs prior to her arrival. As per EMS, en route to the ED, the patient's blood sugar was 480 and patient received 800 normal saline. Allergies: NKDA - Current Medication List Current Medications: Active Medications Chlorhexidine Gluconate (Hibiclens For Decolonization -) 1 applic TP HS [facility] Last Admin: 01/23/19 21:14 Dose: 1 applic Fludrocortisone Acetate (Florinef -) 0.1 mg PO DAILY [facility] Last Admin: 01/23/19 10:07 Dose: 0.1 mg Heparin Sodium (Porcine) (Heparin -) 5,000 unit SQ Q8H-IV [facility] Last Admin: 01/23/19 19:00 Dose: 5,000 unit Hydrocortisone (Cortef -) 30 mg PO AM JULIO CESAR Hydrocortisone (Cortef -) 20 mg PO HS [facility] Last Admin: 01/23/19 21:14 Dose: 20 mg Sodium Chloride (1/2 Normal Saline) 1,000 mls @ 100 mls/hr IV ASDIR [facility] Last Admin: 01/23/19 20:33 Dose: 100 mls/hr Sodium Chloride (1/2 Normal Saline) 1,000 mls @ 999 mls/hr IV ASDIR [facility] Last Admin: 01/23/19 18:49 Dose: 999 mls/hr Insulin Aspart (Novolog Vial Sliding Scale -) 1 vial SQ Q4HPO [facility]; Protocol Insulin Detemir (Levemir Vial) 20 units SQ AM [facility] Last Admin: 01/23/19 10:06 Dose: Not Given Levothyroxine Sodium (Synthroid -) 50 mcg PO DAILY@0700 [facility] Last Admin: 01/23/19 06:14 Dose: 50 mcg Mupirocin (Bactroban Ointment (For Decolonization) -) 1 applic NS BID [facility] Stop: 01/26/19 21:59 Last Admin: 01/23/19 21:13 Dose: 1 applic Ondansetron HCl (Zofran Injection) 8 mg IVPUSH Q6H PRN PRN Reason: NAUSEA Last Admin: 01/22/19 17:32 Dose: 8 mg Pantoprazole Sodium (Protonix Iv) 40 mg IVPUSH DAILY [facility] Last Admin: 01/23/19 10:06 Dose: 40 mg - Objective Vital Signs: Vital Signs Temperature 98 F 01/23/19 22:00 Pulse Rate 84 01/23/19 22:00 Respiratory Rate 18 01/23/19 22:00 Blood Pressure 91/60 01/23/19 22:00 O2 Sat by Pulse Oximetry (%) 100 01/23/19 22:00 Constitutional: Yes: Calm Eyes: Yes: WNL HENT: Yes: WNL Neck: Yes: WNL Cardiovascular: Yes: S1, S2 Respiratory: Yes: WNL Gastrointestinal: Yes: Soft ...Rectal Exam: Yes: Deferred Genitourinary: No: Anuria Breast(s): Yes: WNL Musculoskeletal: Yes: Muscle Weakness Extremities: Yes: Cool Edema: No Peripheral Pulses WNL: Yes Integumentary: Yes: WNL Neurological: Yes: WNL Labs: CBC, BMP 01/23/19 05:40 01/23/19 17:00 INR, PTT INR 0.88 (0.83-1.09) 01/21/19 18:20
[2019-01-24] MEDS ORDERED: ONDANSETRON 4 MG/2 ML VIAL IVPUSH PRN (00:46)
[2019-01-24] MEDS ORDERED: SODIUM CHLORIDE 0.45% 1,000 ML IV SCH (00:46)
[2019-01-24] MEDS ORDERED: INSULIN SLIDING SCALE (NOVOLOG) 1 VIAL SQ SCH (02:00)
[2019-01-24] MEDS: INSULIN SLIDING SCALE (NOVOLOG) 1 VIAL SQ SCH ×4 (02:00→14:39)
[2019-01-24] MEDS: NYSTATIN 100000 UNIT/GM TOPICAL OINTMENT 15 GM TUBE TP SCH ×2 (03:12→11:37)
[2019-01-24] MEDS: HEPARIN NA (PORCINE) 5,000 UNITS/ML 1ML VIAL SQ SCH ×2 (06:10→14:38)
[2019-01-24 06:55] LABS: BASO % 0.4 % (0-2.0); EOS % 0.1 % (0-4.5); HEMATOCRIT 21.1 % (32.4-45.2); HEMOGLOBIN 7.2 GM/dL (10.7-15.3); LYMPH % 16.1 % (8-40); MCH 29.8 pg (25.7-33.7); MCHC 34.1 g/dl (32.0-36.0); MEAN CELL VOLUME 87.4 fl (80-96); MEAN PLT VOLUME 8.9 fl (7.5-11.1); MONO % 2.5 % (3.8-10.2); NEUT % 80.9 % (42.8-82.8); PLATELET COUNT 198 K/MM3 (134-434); RBC 2.41 M/mm3 (3.60-5.2); RDW 13.8 % (11.6-15.6); WHITE BLOOD COUNT 4.7 K/mm3 (4.0-10.0)
[2019-01-24] MEDS ORDERED: LEVOTHYROXINE NA 50 MCG TABLET (FP) PO SCH (07:00)
[2019-01-24] MEDS ORDERED: INSULIN (LEVEMIR) 100 UNITS/ML UNITS SQ SCH (07:00)
[2019-01-24] MEDS ORDERED: HYDROCORTISONE 10 MG TABLET PO SCH ×3 (07:00→22:00)
[2019-01-24 07:12] LABS: ALBUMIN 2.7 g/dl (3.4-5.0); BILIRUBIN,TOTAL 0.4 mg/dL (0.2-1); BLOOD UREA NITROGEN 33.4 mg/dL (7-18); CALCIUM 8.1 mg/dL (8.5-10.1); CREATININE 1.8 mg/dL (0.55-1.3); MAGNESIUM 1.9 mg/dL (1.8-2.4); POTASSIUM 4.5 mmol/L (3.5-5.1); TOT PROT 5.3 g/dl (6.4-8.2)
[2019-01-24] MEDS ORDERED: BENZOCAINE/MENTH/CETYLPYRD CL 1 EACH LOZENGE MM PRN (09:15)
[2019-01-24] MEDS ORDERED: PANTOPRAZOLE SODIUM 40 MG VIAL IVPUSH SCH (10:00)
[2019-01-24] MEDS ORDERED: FLUDROCORTISONE ACETATE 0.1 MG TABLET (FP) PO SCH (10:00)
--- NOTE | 2019-01-24 12:27 | PN ---
Teaching Attending Note Name of Resident: Khoa Simpson ATTENDING PHYSICIAN STATEMENT I saw and evaluated the patient. I reviewed the resident's note and discussed the case with the resident. I agree with the resident's findings and plan as documented. SUBJECTIVE:staets she has some bloating since yesterday but overall improved from yesterday. had some loose BM yesterday but not today. states she suffers from IBS-diarrhea and gets treated often with ceftriaxone/flagyl. denies Cp, SOB , fever, chills, N/V/C/D OBJECTIVE: Last Vital Signs Temp Pulse Resp BP Pulse Ox 98 F 81 15 108/75 100 01/24/19 06:00 01/24/19 06:00 01/24/19 06:00 01/24/19 06:00 01/23/19 22:00 General NAD CV S1 S2 RRR no murmur/rub/gallop Lungs CTA B/L no wheezing/rales/rhonchi Abdomen slight distention, no tenderness normoactive BS Extremities no pedal edema ASSESSMENT AND PLAN: 33 year old female with DM 1, legally blind, brought to ED with 2 day history of elevated capillary glucose readings at home with drowsiness and disorientation noted by her grandmother. she was found to have AGMA with pH 7.05 and Urine positive for acetone and was in DKA due to non functioning insulin pump and hypovolemic shock from adrenal insufficency with response to steroids. 1. DKA - unclear whether Insulin pump is functioning. pump has been removed and sugars controlled with levemir and iss. Team spoke with her primary school teacher librarian regarding dosing and will f/u with patient and determine if will attempt pump again. A1c 12.6. 2. Hypovolemic Shock secondary to possible adrenal insufficiency -started on fludricortisone with improving in BP. cortisol testing. will need full adrenal insuff workup as outpatinet 3. Acute metabolic encephalopathy- due to DKA and shock. now resolved and at baseline 4. ABdominal bloating- due to IBS. pt received IVF yesterday due to LESTER and developed bloating and diarrhea. now improved. tolerating diet. can f/u with GI as outpatient 5. Tropinememia- due to demand from hypovolemic shock. no CP. no ischemia eval needed here 6. LESTER- due to dehydration and possible ATN. received IVF yesterday with improvement. avoid nephrotoxic agents 7. Leukocytosis- reactive. worsened due to steroids given. no indication for abx. UA+ but has no symptoms 8. Anemia- chronic disease. some diluitional component. no indication for transfusion at this time 9. DVT ppx- hep sq 10. likely discharge today, will ensure she tolerates lunch prior to discharge.
--- NOTE | 2019-01-24 13:48 | DS ---
Physical Exam: SUBJECTIVE: 33 y/o F w PMH DM 1, DKA x2, IBS, low bp, and legally blind, admitted to the ICU for tx of DKA LISA 4. She has no complaints today. Pt ate lunch w/o event, passed normal BM, normal urination, and feels well. Pt denies low energy, numbness, tingling, LEGGETT, and vision change. Pt denies NVF. OBJECTIVE: Vital Signs Temp Pulse Resp BP Pulse Ox 98 F 81 15 108/75 100 01/24/19 06:00 01/24/19 06:00 01/24/19 06:00 01/24/19 06:00 01/23/19 22:00 PHYSICAL EXAM GENERAL: The patient is awake, alert, and fully oriented, in no acute distress. HEAD: Normal with no signs of trauma. 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 ENT: Ears normal, nares patent, oropharynx clear without exudates, moist mucous membranes. NECK: Trachea midline, full range of motion, supple. LUNGS: Breath sounds equal, clear to auscultation bilaterally, no wheezes, no crackles, no accessory muscle use. HEART: Regular rate and rhythm, S1, S2 without murmur, rub or gallop. ABDOMEN: Soft, nontender, nondistended, normoactive bowel sounds, no guarding, no rebound, no hepatosplenomegaly, no masses. EXTREMITIES: 2+ pulses, warm, well-perfused, no edema. NEUROLOGICAL: Cranial nerves II through XII grossly intact. Normal speech, gait not observed. PSYCH: Normal mood, normal affect. SKIN: Warm, dry, normal turgor, no rashes or lesions noted. LABS Laboratory Results - last 24 hr 01/22/19 01/22/19 01/22/19 10:30 22:10 22:20 WBC RBC Hgb Hct MCV MCH MCHC RDW Plt Count MPV Absolute Neuts (auto) Neutrophils % Lymphocytes % Monocytes % Eosinophils % Basophils % Nucleated RBC % Sodium Potassium Chloride Carbon Dioxide Anion Gap BUN Creatinine Est GFR (CKD-EPI)AfAm Est GFR (CKD-EPI)NonAf POC Glucometer Random Glucose Calcium Phosphorus Magnesium Total Bilirubin AST ALT Alkaline Phosphatase Total Protein Albumin Cortisol 30 Minute 36.10 Cortisol 60 Minute 39.1 Cortisol AM Sample 32.2 H 01/23/19 01/23/19 01/23/19 14:29 17:00 20:21 WBC RBC Hgb Hct MCV MCH MCHC RDW Plt Count MPV Absolute Neuts (auto) Neutrophils % Lymphocytes % Monocytes % Eosinophils % Basophils % Nucleated RBC % Sodium 141 Potassium 4.0 Chloride 117 H Carbon Dioxide 16 L Anion Gap 8 BUN 37.7 H Creatinine 2.0 H Est GFR (CKD-EPI)AfAm 37.08 Est GFR (CKD-EPI)NonAf 31.99 POC Glucometer 256 264 Random Glucose 180 H Calcium 7.5 L Phosphorus Magnesium Total Bilirubin AST ALT Alkaline Phosphatase Total Protein Albumin Cortisol 30 Minute Cortisol 60 Minute Cortisol AM Sample 01/24/19 01/24/19 01/24/19 01:02 05:45 05:45 WBC 4.7 RBC 2.41 L Hgb 7.2 L Hct 21.1 L MCV 87.4 MCH 29.8 MCHC 34.1 RDW 13.8 Plt Count 198 D MPV 8.9 Absolute Neuts (auto) 3.8 Neutrophils % 80.9 Lymphocytes % 16.1 D Monocytes % 2.5 L Eosinophils % 0.1 D Basophils % 0.4 Nucleated RBC % 0 Sodium 140 Potassium 4.5 Chloride 114 H Carbon Dioxide 17 L Anion Gap 9 BUN 33.4 H Creatinine 1.8 H Est GFR (CKD-EPI)AfAm 42.12 Est GFR (CKD-EPI)NonAf 36.34 POC Glucometer 148 Random Glucose 175 H Calcium 8.1 L Phosphorus 4.0 Magnesium 1.9 Total Bilirubin 0.4 AST 177 H ALT 94 H Alkaline Phosphatase 102 Total Protein 5.3 L Albumin 2.7 L Cortisol 30 Minute Cortisol 60 Minute Cortisol AM Sample 01/24/19 01/24/19 06:05 10:39 WBC RBC Hgb Hct MCV MCH MCHC RDW Plt Count MPV Absolute Neuts (auto) Neutrophils % Lymphocytes % Monocytes % Eosinophils % Basophils % Nucleated RBC % Sodium Potassium Chloride Carbon Dioxide Anion Gap BUN Creatinine Est GFR (CKD-EPI)AfAm Est GFR (CKD-EPI)NonAf POC Glucometer 158 132 Random Glucose Calcium Phosphorus Magnesium Total Bilirubin AST ALT Alkaline Phosphatase Total Protein Albumin Cortisol 30 Minute Cortisol 60 Minute Cortisol AM Sample HOSPITAL COURSE: 33 y/o F w PMH DM 1, DKA x2, IBS, low bp, and legally blind, admitted w AGMA, pH 7.05, gluc 1,380 in ED, and POSITIVE urine acetone consistent with DKA w metabolic encephalopathy. Pt was dx with DM1 18 years ago and started using an insulin pump w/in the last year. She has been hospitalized x2 for DKA: once on diagnosis in 2000 and again this December 2018. This admission is her third DKA. DKA treated in ICU over 2 days. No evidence of sepsis given negative urine. Her acidosis improved, AG closed, successfully weaned off levophed, insulin drop d/ c for ISS, and she was put on broth diet. During the ICU stay the pt resolved a troponenia, which was presumed to be d/t coronary hypoperfusion in the setting of hypotension, that cardiology consult concurs with. LESTER occurred d/t hypovolemia as well and this was treated w hydration. Pt moved to a tele bed. She experienced low BP readings and was held in the hospital for one more day. Endocrine was consulted & Dr. Mayers ordered ACTCH challenge to assess poss. adrenal insufficiency, prescribed one dose of solucortef, and recommended Cortef 50mg QD for her low BP. She should f/u with Dr. Galeano, her transportation broker out-pt. She will decide whether she wants to continue a combination of long/short acting insulin or attempt pump use again. On 01/23/19 the pt experienced abdominal discomfort that she reports is gas from her IBS. Pt should f/u w her GI, Dr. Federico Mai out-pt. Pt was provided w [employer] support contact for insulin pump: [employer] or local pump specialist: Dixie Basilio . IMAGING KIDNEY US 21 JAN 2019 Real time examination of the kidneys demonstrates the following: There is a right pleural effusion present. There is also a small amount of ascites within the upper abdomen. The kidneys are normal in size with the right kidney measuring 12.9 x 6.1 x 5.2 cm and the left kidney measuring 10.7 x 6.5 x 5.9 cm. There is no evidence of hydronephrosis or contour deforming renal masses. The gallbladder is markedly thickened which may be related to the ascites. No calculi are identified. IMPRESSION: 1. Right pleural effusion and ascites. 2. No evidence of hydronephrosis or obstructive uropathy. Please see above discussion. CXR - 22 JAN 2019 A single AP view of the chest reveals clear lungs, normal mediastinum and sharp angles. The bones and soft tissues are intact. Since 12/11/2018 there is no change of an adverse nature. Impression: No acute chest pathology. Date of Discharge: 01/24/19 Dr. Khoa Simpson MD Minutes to complete discharge: 40 Discharge Summary Reason For Visit: BLOOD SUGAR PROBLEM Current Active Problems LESTER (acute kidney injury) (Acute) Anemia (Chronic) Condition: Improved - Instructions Diet, Activity, Other Instructions: YOUR VISIT You were admitted to the hospital because you were found to have loss of alertness and a very high blood sugar level. We arlene labs that showed you were experiencing diabetic ketoacidosis and you were admitted to the ICU to treat this problem. While here you were given fluids and insulin and monitored closely. To ensure your insulin pump is working, please call [employer] . Until your pump is working again, you will be given a new prescription for insulin to take before meals and at night. If you would like to continue using self administered insulin, do NOT also use your insulin pump. Please be sure to check your blood sugar 3 times a day; you can do this before meals. We would like to set up primary care for you at our continuity clinic. You were also noted to have low blood pressure. You were started on Fludrocortisone by your primary care doctor. But due to persistence of low blood pressure, Hydrocortisone was added. Please continue taking this medications at home. MEDICATIONS Please take the following medications as prescribed: 1. Insulin Levemir 20 units daily before breakfast. 2. Hydrocortisone 30 mg in the morning and 20mg at bedtime 3. Continue Fludrocortisone 0.1 mg daily 4. Continue Synthroid 50mcg daily before breakfast. 5. Insulin (humalog) sliding scale three times a day before meals and at bedtime. BGM Insulin (units) 101-150 2 151-200 4 201-250 6 251-300 8 301-350 10 351-400 12 >400 14 ADDITIONAL CARE 1. Please make an appointment with our primary care team at the [facility]. Resident continuity clinic appointments can be made by calling [phone]. If you would like to see Dr. Khoa Simpson MD you can ask for Wednesday morning appointments. 2. Please follow up with your transportation broker (Dr. Galeano) within 1-2 weeks. ADDITIONAL INFO Please come to the emergency room if you experience shortness of breath, chest pain, loss of alertness, numbness, tingling, or any other alarming symptoms. Referrals: [facility] [place] [facility] [place] [Provider Group] - 1 Week Federico Mai MD [Staff Physician] - Toshia Galeano MD [Staff Physician] - 1 Week Disposition: HOME - Home Medications Comprehensive Discharge Medication List: Ambulatory Orders Insulin Pump/Infus. Set/Meter [Accu-Chek Combo System] 1 each [facility] ASDIR 08/10/16 Fludrocortisone Acetate [Florinef -] 0.1 mg PO DAILY #30 tablet 01/24/19 Hydrocortisone [Cortef -] 20 mg PO HS #60 tablet 01/24/19 Hydrocortisone [Cortef -] 30 mg PO AM #90 tablet 01/24/19 Insulin Detemir [Levemir Flextouch] 20 units SQ DAILY #1 insuln.pen 01/24/19 Insulin Lispro [Humalog Kwikpen U-100] See Protocol SQ ACHS #1 insuln.pen Lancets/Blood Glucose Strips [Fora [id number] Strp-Lnct] 1 each ACHS #1 combo..pkg 01/24/19 Levothyroxine [Synthroid -] 50 mcg PO DAILY@0700 #30 tablet 01/24/19 Miscellaneous Medical Supply [Glucometer Device] 1 each ASDIR #1 kit This patient is new to me today: No Emergency Visit: No Critical Care patient: No - Discharge Referral Referred to [facility] No ATTENDING PHYSICIAN STATEMENT I saw and evaluated the patient. I reviewed the resident's note and discussed the case with the resident. I agree with the resident's findings and plan as documented. SUBJECTIVE: OBJECTIVE: ASSESSMENT AND PLAN:
[2019-01-24 16:47] VITALS: BP 109/78; PULSE 81; TEMP 97.8
== END 2019-01-24 16:02 | disposition home or self-care (01) | DRG 637 ==
LOC: JER 17:24 → JERBED 19:46 → JICU 21:21 → J2W 01-24 00:21
PROVIDERS: ADMIT Internal Medicine; ATTEND Internal Medicine
DX: E10.10 Type 1 diabetes mellitus with ketoacidosis without coma (principal); R57.1 Hypovolemic shock; G93.41 Metabolic encephalopathy; T85.694A Other mechanical complication of insulin pump, initial encounter; E87.1 Hypo-osmolality and hyponatremia; I24.8 Other forms of acute ischemic heart disease; N17.9 Acute kidney failure, unspecified; E87.5 Hyperkalemia; D64.9 Anemia, unspecified; D72.829 Elevated white blood cell count, unspecified; Z96.41 Presence of insulin pump (external) (internal); K58.9 Irritable bowel syndrome, unspecified; H54.8 Legal blindness, as defined in USA; E10.319 Type 1 diabetes mellitus with unspecified diabetic retinopathy without macular edema; R68.0 Hypothermia, not associated with low environmental temperature; I95.9 Hypotension, unspecified; F41.9 Anxiety disorder, unspecified; I95.1 Orthostatic hypotension; E88.09 Other disorders of plasma-protein metabolism, not elsewhere classified
CPT/HCPCS: 36415; 36600; 71045-TC-FY; 76775-TC; 80048; 80053; 80061; 80307; 81003; 82009; 82024; 82436; 82533; 82550; 82553; 82607; 82728; 82746; 82803; 82962; 83036; 83540; 83550; 83605; 83721; 83735; 84100; 84133; 84300; 84439; 84443; 84484; 84703; 85025; 85027; 85044; 85610; 87040; 87045; 87046; 87086; 87324; 87449; 93005; 93010; 93306-TC; 99285-25; J0834; J1644; J7030